=== PATIENT | female | born 1965 | race Caucasian/White ===

== ENCOUNTER 2017-06-15 11:49 | Emergency (ER) | payer SELFPAY ==
[2017-06-15] VITALS (7 sets, daily range): BP systolic 176–216; BP diastolic 98–118; PULSE 79–99; RESP 16–18; TEMP 98.1; O2SAT 97–99
[~2017-06-15] VITALS: Ht 172.7 cm; Wt 52.3 kg
[~2017-06-15 11:49] MED LIST: CYCL-36 PO; LORTA10 PO; LORTA5 PO; PERC5TAB12 PO
[2017-06-15] MEDS ORDERED: SODIUM CHLOR 0.9% 1000 ML INJ 1,000 ML IV SCH (15:48)
[2017-06-15] MEDS ORDERED: PROM25TA10 PO (15:58)
[2017-06-15] MEDS ORDERED: ZOFR4TAB PO (15:58)
[2017-06-15] MEDS ORDERED: ONDANSETRON HCL 4 MG/2 ML VIAL IVP ONE (16:00)
[2017-06-15] MEDS ORDERED: MORPHINE SULFATE 4 MG/ML INJ IV PUSH ONE ×2 (16:00→17:45)
[2017-06-15] MEDS ORDERED: FAMOTIDINE 20 MG/2 ML VIAL IV PUSH ONE (16:00)
--- NOTE | 2017-06-15 16:03 | PD ---
HPI Chief Complaint: GI Complaint Time Seen by Provider: 15:38 Travel History International Travel<30 days: No Contact w/Intl Traveler<30days: No Traveled to known affect area: No History of Present Illness HPI The patient is a 51-year-old female who presents to the emergency department for nausea, vomiting, diarrhea, and abdominal pain. The patient states her symptoms started yesterday morning with nausea and vomiting. That was followed by a few episodes of loose, watery, diarrhea. The patient then developed severe epigastric abdominal pain that is nonradiating, sharp, and assisted with persistent nausea and vomiting. The patient has a history of similar pain one year ago when she had her gallbladder removed. The patient does admit to drinking alcohol daily, approximate 5 drinks per day, but was unable to drink last night secondary to the epigastric pain. She is unsure of any history of pancreatitis. The patient denies any fever, chills, or sweats. She denies any dysuria, frequency, urgency, cough, chest pain, or shortness of breath. PFSH Past Medical History Autoimmune Disease: No Anxiety: Yes Depression: Yes Cancer: No Cardiovascular Problems: Yes (STENT IN 2007) Diminished Hearing: No Endocrine: No Genitourinary: No Hypertension: Yes Immune Disorder: No Musculoskeletal: No Neurologic: No Psychiatric: Yes Reproductive: No Respiratory: No Immunizations Current: Yes Myocardial Infarction: Yes Radiation Therapy: No Sickle Cell Disease: No ?: Not : 0 Para: 0 Past Surgical History Abdominal Surgery: No Cardiac Surgery: Yes (STENT 2007) Ear Surgery: No Endocrine Surgery: No Eye Surgery: No Genitourinary Surgery: No Gynecologic Surgery: No Oral Surgery: Yes (08/17) Thoracic Surgery: No Other Surgery: Yes (STENT) Social History Alcohol Use: Yes (4-5 DRINKS DAILY) Tobacco Use: Yes (1 PPD) Substance Use: No Allergies-Medications (Allergen,Severity, Reaction): Coded Allergies: No Known Allergies (Unverified , 06/15/17) Reported Meds & Prescriptions Reported Meds & Active Scripts Active Reported Phenergan (Promethazine HCl) 25 Mg Tablet 25 Mg PO ONCE Zofran (Ondansetron HCl) 4 Mg Tab 4 Mg PO Q6HR PRN Review of Systems Except as stated in HPI: all other systems reviewed are Neg General / Constitutional: No: Fever Cardiovascular: No: Chest Pain or Discomfort Respiratory: No: Shortness of Breath Gastrointestinal: Positive: Nausea, Vomiting, Diarrhea, Abdominal Pain Genitourinary: No: Dysuria Musculoskeletal: No: Weakness Physical Exam Narrative GENERAL: Awake, alert, pleasant 51-year-old female who appears her stated age and is in no acute respiratory distress. SKIN: Focused skin assessment warm/dry. HEAD: Atraumatic. Normocephalic. EYES: No injection or drainage. ENT: No nasal bleeding or discharge. Dry mucous members. NECK: Trachea midline. No JVD. CARDIOVASCULAR: Regular rate and rhythm. No murmur appreciated. RESPIRATORY: No accessory muscle use. Clear to auscultation. Breath sounds equal bilaterally. GASTROINTESTINAL: Abdomen soft, tender palpation epigastrium. No guarding or rigidity. MUSCULOSKELETAL: No obvious deformities. No clubbing. No cyanosis. No edema. NEUROLOGICAL: Awake and alert. No obvious cranial nerve deficits. Motor grossly within normal limits. Normal speech. PSYCHIATRIC: Appropriate mood and affect; insight and judgment normal. Data Data Last Documented VS Vital Signs Date Time Temp Pulse Resp B/P (MAP) Pulse Ox O2 Delivery O2 Flow Rate FiO2 06/15/17 16:41 16 06/15/17 16:14 99 Room Air 06/15/17 13:42 98.1 79 205/118 (147) Orders Orders Complete Blood Count With Diff (06/15/17 15:48) Comprehensive Metabolic Panel (06/15/17 15:48) Lipase (06/15/17 15:48) Lactic Acid (06/15/17 15:48) Iv Access Insert/Monitor (06/15/17 15:48) Ecg Monitoring (06/15/17 15:48) Oximetry (06/15/17 15:48) Morphine Inj (Morphine Inj) (06/15/17 16:00) Ondansetron Inj (Zofran Inj) (06/15/17 16:00) Sodium Chlor 0.9% 1000 Ml Inj (Ns 1000 M (06/15/17 15:48) Sodium Chloride 0.9% Flush (Ns Flush) (06/15/17 16:00) Famotidine Inj (Pepcid Inj) (06/15/17 16:00) Prochlorperazine Inj (Compazine Inj) (06/15/17 16:30) Sodium Chlor 0.9% 1000 Ml Inj (Ns 1000 M (06/15/17 16:30) Morphine Inj (Morphine Inj) (06/15/17 17:45) Sodium Chloride 0.9% Flush (Ns Flush) (06/15/17 18:00) Al-Mag Hy-Si 40-40-4 Mg/Ml Liq (Mag-Al P (06/15/17 18:00) Lidocaine 2% Viscous (Xylocaine 2% Visco (06/15/17 18:00) Lisinopril (Prinivil) (06/15/17 18:00) Potassium Chloride (Kcl) (06/15/17 18:00) Labs Laboratory Tests Test 06/15/17 15:55 White Blood Count 5.8 TH/MM3 Red Blood Count 4.56 MIL/MM3 Hemoglobin 16.4 GM/DL Hematocrit 50.0 % Mean Corpuscular Volume 109.6 FL Mean Corpuscular Hemoglobin 36.0 PG Mean Corpuscular Hemoglobin Concent 32.9 % Red Cell Distribution Width 14.4 % Platelet Count 204 TH/MM3 Mean Platelet Volume 8.5 FL Neutrophils (%) (Auto) 87.5 % Lymphocytes (%) (Auto) 7.7 % Monocytes (%) (Auto) 4.2 % Eosinophils (%) (Auto) 0.1 % Basophils (%) (Auto) 0.5 % Neutrophils # (Auto) 5.2 TH/MM3 Lymphocytes # (Auto) 0.4 TH/MM3 Monocytes # (Auto) 0.2 TH/MM3 Eosinophils # (Auto) 0.0 TH/MM3 Basophils # (Auto) 0.0 TH/MM3 CBC Comment DIFF FINAL Differential Comment Blood Urea Nitrogen 9 MG/DL Creatinine 0.69 MG/DL Random Glucose 124 MG/DL Total Protein 8.8 GM/DL Albumin 4.1 GM/DL Calcium Level 9.4 MG/DL Alkaline Phosphatase 242 U/L Aspartate Amino Transf (AST/SGOT) 83 U/L Alanine Aminotransferase (ALT/SGPT) 31 U/L Total Bilirubin 1.7 MG/DL Sodium Level 132 MEQ/L Potassium Level 2.9 MEQ/L Chloride Level 90 MEQ/L Carbon Dioxide Level 30.7 MEQ/L Anion Gap 11 MEQ/L Estimat Glomerular Filtration Rate 89 ML/MIN Lactic Acid Level 2.0 mmol/L Lipase 394 U/L [facility] Medical Decision Making Medical Screen Exam Complete: Yes Emergency Medical Condition: Yes Medical Record Reviewed: Yes Interpretation(s) Laboratory Tests Test 06/15/17 15:55 White Blood Count 5.8 TH/MM3 Red Blood Count 4.56 MIL/MM3 Hemoglobin 16.4 GM/DL Hematocrit 50.0 % Mean Corpuscular Volume 109.6 FL Mean Corpuscular Hemoglobin 36.0 PG Mean Corpuscular Hemoglobin Concent 32.9 % Red Cell Distribution Width 14.4 % Platelet Count 204 TH/MM3 Mean Platelet Volume 8.5 FL Neutrophils (%) (Auto) 87.5 % Lymphocytes (%) (Auto) 7.7 % Monocytes (%) (Auto) 4.2 % Eosinophils (%) (Auto) 0.1 % Basophils (%) (Auto) 0.5 % Neutrophils # (Auto) 5.2 TH/MM3 Lymphocytes # (Auto) 0.4 TH/MM3 Monocytes # (Auto) 0.2 TH/MM3 Eosinophils # (Auto) 0.0 TH/MM3 Basophils # (Auto) 0.0 TH/MM3 CBC Comment DIFF FINAL Differential Comment Blood Urea Nitrogen 9 MG/DL Creatinine 0.69 MG/DL Random Glucose 124 MG/DL Total Protein 8.8 GM/DL Albumin 4.1 GM/DL Calcium Level 9.4 MG/DL Alkaline Phosphatase 242 U/L Aspartate Amino Transf (AST/SGOT) 83 U/L Alanine Aminotransferase (ALT/SGPT) 31 U/L Total Bilirubin 1.7 MG/DL Sodium Level 132 MEQ/L Potassium Level 2.9 MEQ/L Chloride Level 90 MEQ/L Carbon Dioxide Level 30.7 MEQ/L Anion Gap 11 MEQ/L Estimat Glomerular Filtration Rate 89 ML/MIN Lactic Acid Level 2.0 mmol/L Lipase 394 U/L Differential Diagnosis Differential diagnosis includes pancreatitis, gastritis, gastroenteritis, peptic ulcer disease, retained biliary stone, food poisoning, dehydration, electrolyte abnormality. Narrative Course IV was established, labs are drawn and sent, and the patient was placed on cardiac telemetry monitoring and continuous pulse oximetry monitoring. The patient was administered morphine, Zofran, and IV fluids. The patient's hemoglobin was elevated consistent with hemoconcentration, white count is normal. Lipase is minimally elevated at 394, bili is elevated at 1.7. Most likely the patient has gastritis. She was redosed with Compazine and morphine for continuing pain. Vitals are unremarkable. The patient will be discharged home on pain medications and antiemetics. Diagnosis Primary Impression: Gastroenteritis Patient Instructions: General Instructions Additional Instructions: Medications as directed. Clear liquid diet and advance as tolerated. No alcohol. Follow-up with your primary physician. Return if symptoms worsen or progress. Med/Other Pt SpecificInfo: Prescription(s) given Scripts Hydrocodone-Acetaminophen ([place]) 5-325 mg Tab 1 TAB PO Q6H Y for PAIN, #15 TAB 0 Refills Prov: Cameron Solano MD 06/15/17 Ranitidine (Zantac) 150 Mg Tab 150 MG PO BID for Reduce Stomach Acid, #20 TAB 0 Refills Prov: Cameron Solano MD 06/15/17 Ondansetron Odt (Zofran Odt) 4 Mg Tab 4 MG SL Q6HR Y for Nausea/Vomiting, #10 TAB 0 Refills Prov: Cameron Solano MD 06/15/17 Disposition: 01 DISCHARGE HOME Condition: Stable Cameron Solano MD Jun 15, 2017 16:03
[2017-06-15] MEDS ORDERED: PROCHLORPERAZINE INJ 10 MG/2 ML VIAL IV PUSH ONE (16:30)
[2017-06-15] MEDS ORDERED: SODIUM CHLOR 0.9% 1000 ML INJ 1,000 ML IV ONE (16:30)
[2017-06-15] MEDS: SODIUM CHLORIDE 0.9% FLUSH 10 ML FLUSH IV FLUSH PRN ×2 (16:31→17:41)
[2017-06-15 16:44] LABS: AUTOMATED NEUTROPHIL # 5.2 TH/MM3 (1.8-7.7); BASOPHIL % 0.5 % (0.0-2.0); EOSINOPHIL % 0.1 % (0.0-4.0); HEMO FLAGS DIFF FINAL; LYMPH % 7.7 % (9.0-44.0); LYMPHOCYTE # 0.4 TH/MM3 (1.0-4.8); MEAN CELL VOLUME 109.6 FL (80.0-100.0); MEAN CORPUSCULAR HGB CONC 32.9 % (32.0-36.0); MONO % 4.2 % (0.0-8.0); NEUT % 87.5 % (16.0-70.0); PLATELET COUNT 204 TH/MM3 (150-450); RED BLOOD COUNT 4.56 MIL/MM3 (4.00-5.30); RED CELL DISTRIBUTION WIDTH 14.4 % (11.6-17.2); WHITE BLOOD COUNT 5.8 TH/MM3 (4.0-11.0)
[2017-06-15 17:41] LABS: ALKALINE PHOSPHATASE 242 U/L (45-117); ALT (GPT) 31 U/L (10-53); ANION GAP 11 MEQ/L (5-15); AST (GOT) 83 U/L (15-37); BICARBONATE 30.7 MEQ/L (21.0-32.0); BLOOD UREA NITROGEN 9 MG/DL (7-18); CHLORIDE 90 MEQ/L (98-107); GLOMERULAR FILTRATION RATE 89 ML/MIN (>89); SODIUM (NA) 132 MEQ/L (136-145); TOTAL BILIRUBIN ADULT 1.7 MG/DL (0.2-1.0)
[2017-06-15 17:42] LABS: POTASSIUM 2.9 MEQ/L (3.5-5.1)
[2017-06-15] MEDS ORDERED: ZOFR4TAB3 SL (17:56)
[2017-06-15] MEDS ORDERED: NORC5TAB PO (17:56)
[2017-06-15] MEDS ORDERED: ZANT150T2 PO (17:56)
[2017-06-15] MEDS ORDERED: POTASSIUM CHLORIDE 20 MEQ CONTROLLED RELEASE TAB PO ONE (18:00)
[2017-06-15] MEDS ORDERED: LISINOPRIL 20 MG TAB PO ONE (18:00)
[2017-06-15] MEDS ORDERED: ALUMINUM/MAGNESIUM/SIMETH 30 ML CUP PO ONE (18:00)
[2017-06-15] MEDS ORDERED: SODIUM CHLORIDE 0.9% FLUSH 10 ML FLUSH IV FLUSH PRN (18:00)
[2017-06-15] MEDS ORDERED: LIDOCAINE VISCOUS 2% SOLN 15 ML UDC PO ONE (18:00)
[2017-06-15] MEDS ORDERED: LABETALOL HCL 100 MG/20 ML VIAL IV ONE (19:15)
[2017-07-28] MEDS ORDERED: LISI-515 PO (04:36)
== END 2017-06-15 20:10 | disposition home or self-care (01) ==
LOC: PHED 11:49
DX: K52.9 Noninfective gastroenteritis and colitis, unspecified (principal); I10 Essential (primary) hypertension; I25.2 Old myocardial infarction
CPT/HCPCS: 80053; 83605; 83690; 85025; 96361; 96374; 96375; 96376; 99284; J0780; J2270; J2405; J7030

== ENCOUNTER 2017-07-28 04:18 | Inpatient (IN) | payer OTHER ==
[~2017-07-28] VITALS: Ht 172.7 cm; Wt 50.5 kg
[2017-07-28] VITALS (12 sets, daily range): BP systolic 141–216; BP diastolic 73–129; PULSE 76–89; RESP 16–20; TEMP 97.5–97.9; O2SAT 94–99
[~2017-07-28 04:18] MED LIST changes: -CYCL-36 PO; -LORTA10 PO; -LORTA5 PO; +NORC5TAB PO; -PERC5TAB12 PO; +PROM25TA10 PO; +ZANT150T2 PO; +ZOFR4TAB PO; +ZOFR4TAB3 SL
[2017-07-28] MEDS ORDERED: LISI-515 PO ×2 (04:36)
[2017-07-28] MEDS ORDERED: SODIUM CHLOR 0.9% 1000 ML INJ 1,000 ML IV SCH ×4 (04:37→06:37)
--- NOTE | 2017-07-28 04:39 | PD ---
HPI Chief Complaint: GI Complaint Time Seen by Provider: 04:34 Travel History International Travel<30 days: No Contact w/Intl Traveler<30days: No Traveled to known affect area: No History of Present Illness HPI 51-year-old female here for evaluation of nausea, vomiting, and abdominal pain. Symptoms have been going on for the last 4 days. Emesis is greenish, nonbloody. History of cholecystectomy. No other abdominal surgeries. Pain is epigastric, described as knifelike and radiates to her back. She denies a moderate amount of alcohol, however has not been drinking recently because of the way she has been feeling. She has had chills but no fevers. No urinary symptoms. She believes she was diagnosed with Crohn's disease, however she is not receiving any specific treatment for this. PFSH Past Medical History Autoimmune Disease: No Anxiety: Yes Depression: Yes Cancer: No Cardiovascular Problems: Yes (STENT IN 2007) Diminished Hearing: No Endocrine: No Genitourinary: No Hypertension: Yes Immune Disorder: No Musculoskeletal: No Neurologic: No Psychiatric: Yes Reproductive: No Respiratory: No Immunizations Current: Yes Myocardial Infarction: Yes Radiation Therapy: No Sickle Cell Disease: No : 0 Para: 0 Past Surgical History Abdominal Surgery: No Cardiac Surgery: Yes (STENT 2007) Ear Surgery: No Endocrine Surgery: No Eye Surgery: No Genitourinary Surgery: No Gynecologic Surgery: No Oral Surgery: Yes (08/17) Thoracic Surgery: No Other Surgery: Yes (STENT) Social History Alcohol Use: Yes (4-5 DRINKS DAILY) Tobacco Use: Yes (1 PPD) Substance Use: No Allergies-Medications (Allergen,Severity, Reaction): Coded Allergies: No Known Allergies (Unverified , 07/28/17) Reported Meds & Prescriptions Reported Meds & Active Scripts Active Zantac (Ranitidine HCl) 150 Mg Tab 150 Mg PO BID Zofran Odt (Ondansetron Odt) 4 Mg Tab 4 Mg SL Q6HR PRN Reported Lisinopril 20 Mg Tab 20 Mg PO BID Review of Systems Except as stated in HPI: all other systems reviewed are Neg Physical Exam Narrative GENERAL: Well-developed, thin, retching into an emesis bag SKIN: Focused skin assessment warm/dry. HEAD: Atraumatic. Normocephalic. EYES: Pupils equal and round. No scleral icterus. No injection or drainage. ENT: Mucous membranes pink and moist. NECK: Trachea midline. No JVD. CARDIOVASCULAR: Regular rate and rhythm. RESPIRATORY: No accessory muscle use. Clear to auscultation. Breath sounds equal bilaterally. GASTROINTESTINAL: Abdomen soft, nondistended. Moderate epigastric tenderness without peritoneal signs. Rest of abdomen is soft and nontender. Normal bowel sounds. MUSCULOSKELETAL: No obvious deformities. No clubbing. No cyanosis. No edema. NEUROLOGICAL: Awake and alert. No obvious cranial nerve deficits. Motor grossly within normal limits. Normal speech. PSYCHIATRIC: Appropriate mood and affect; insight and judgment normal. Data Data Last Documented VS Vital Signs Date Time Temp Pulse Resp B/P (MAP) Pulse Ox O2 Delivery O2 Flow Rate FiO2 07/28/17 06:01 76 18 199/108 (138) 99 Room Air 07/28/17 04:20 97.9 Orders Orders Complete Blood Count With Diff (07/28/17 04:37) Comprehensive Metabolic Panel (07/28/17 04:37) Lipase (07/28/17 04:37) Prothrombin Time / Inr (Pt) (07/28/17 04:37) Act Partial Throm Time (Ptt) (07/28/17 04:37) Urinalysis - C+S If Indicated (07/28/17 04:37) Ct Abd/Pel W Iv Contrast(Rout) (07/28/17 04:37) Iv Access Insert/Monitor (07/28/17 04:37) Ecg Monitoring (07/28/17 04:37) Oximetry (07/28/17 04:37) Morphine Inj (Morphine Inj) (07/28/17 04:45) Ondansetron Inj (Zofran Inj) (07/28/17 04:45) Sodium Chlor 0.9% 1000 Ml Inj (Ns 1000 M (07/28/17 04:37) Sodium Chloride 0.9% Flush (Ns Flush) (07/28/17 04:45) Electrocardiogram (07/28/17 04:37) Ckmb (Isoenzyme) Profile (07/28/17 04:49) Troponin I (07/28/17 04:49) Promethazine Inj (Phenergan Inj) (07/28/17 05:15) Pantoprazole Inj (Protonix Inj) (07/28/17 05:30) Al-Mag Hy-Si 40-40-4 Mg/Ml Liq (Mag-Al P (07/28/17 05:30) Lidocaine 2% Viscous (Xylocaine 2% Visco (07/28/17 05:30) Iohexol 350 Inj (Omnipaque 350 Inj) (07/28/17 05:46) Morphine Inj (Morphine Inj) (07/28/17 06:30) Labs Laboratory Tests Test 07/28/17 04:50 07/28/17 05:55 White Blood Count 9.6 TH/MM3 Red Blood Count 4.38 MIL/MM3 Hemoglobin 16.0 GM/DL Hematocrit 47.3 % Mean Corpuscular Volume 108.1 FL Mean Corpuscular Hemoglobin 36.6 PG Mean Corpuscular Hemoglobin Concent 33.9 % Red Cell Distribution Width 13.5 % Platelet Count 188 TH/MM3 Mean Platelet Volume 8.1 FL Neutrophils (%) (Auto) 90.6 % Lymphocytes (%) (Auto) 5.8 % Monocytes (%) (Auto) 2.4 % Eosinophils (%) (Auto) 0.1 % Basophils (%) (Auto) 1.1 % Neutrophils # (Auto) 8.7 TH/MM3 Lymphocytes # (Auto) 0.6 TH/MM3 Monocytes # (Auto) 0.2 TH/MM3 Eosinophils # (Auto) 0.0 TH/MM3 Basophils # (Auto) 0.1 TH/MM3 CBC Comment DIFF FINAL Differential Comment Prothrombin Time 12.2 SEC Prothromb Time International Ratio 1.1 RATIO Activated Partial Thromboplast Time 28.0 SEC Blood Urea Nitrogen 7 MG/DL Creatinine 0.44 MG/DL Random Glucose 129 MG/DL Total Protein 8.0 GM/DL Albumin 3.9 GM/DL Calcium Level 9.5 MG/DL Alkaline Phosphatase 230 U/L Aspartate Amino Transf (AST/SGOT) 58 U/L Alanine Aminotransferase (ALT/SGPT) 26 U/L Total Bilirubin 1.9 MG/DL Sodium Level 129 MEQ/L Potassium Level 3.3 MEQ/L Chloride Level 87 MEQ/L Carbon Dioxide Level 29.8 MEQ/L Anion Gap 12 MEQ/L Estimat Glomerular Filtration Rate 150 ML/MIN Total Creatine Kinase 49 U/L Troponin I LESS THAN 0.02 NG/ML Lipase 367 U/L Urine Color YELLOW Urine Turbidity CLEAR Urine pH 7.5 Urine Specific [place] 1.024 Urine Protein NEG mg/dL Urine Glucose (UA) NEG mg/dL Urine Ketones 40 mg/dL Urine Occult Blood NEG Urine Nitrite NEG Urine Bilirubin NEG Urine Leukocyte Esterase NEG Urine Squamous Epithelial Cells 0-5 /hpf Urine Bacteria OCC /hpf Urine Hyaline Casts 3-5 /lpf Urine Mucus OCC /lpf Microscopic Urinalysis Comment CULT NOT INDICATED MDM Medical Decision Making Medical Screen Exam Complete: Yes Emergency Medical Condition: Yes Medical Record Reviewed: Yes Interpretation(s) EKG: Sinus, rate 70, normal axis, LVH, Q waves in septal leads, no acute ischemic abnormality. Differential Diagnosis Gastroenteritis, gastritis, peptic ulcer disease, hepatobiliary disease, pancreatitis, metabolic abnormality/dehydration Narrative Course Initial vital signs show heart rate 76, blood pressure 205/106, pulse ox 99% on room air, oral temp of 97.9F. CBC: WBC 9.6, hemoglobin 16, hematocrit 47.3, platelets 188, neutrophils 90.6%. CMP is remarkable for sodium 129, potassium 3.3, chloride 87. Alkaline phosphatase is 2:30. Cardiac enzymes are negative. Lipase is 367. UA shows 40 ketones, not suggestive of UTI. CT abdomen pelvis: CONCLUSION: 1. Moderate to severe hepatic steatosis. 2. Cholecystectomy. 3. Nondistention versus less likely wall thickening of the colon which can be seen with colitis. No inflammatory changes. Patient was given a dose of 4 mg of IV morphine, IV Zofran, IM Phenergan, and a GI cocktail, and IV Protonix. She is still complaining of abdominal pain and continues to retch. She is unable to tolerate by mouth. She is not displaying any symptoms of alcohol withdrawal such as tremulousness or tongue fasciculations. Her blood pressure is elevated, however she has been unable to take her lisinopril because of her nausea and vomiting. She is not displaying any signs or symptoms of hypertensive crisis. Given intractable abdominal pain with possible colitis, the patient will be admitted for further treatment and evaluation. She will be started on Cipro and Flagyl. Case discussed with hospitalist Dr. Heath who will admit the patient to her service. Diagnosis Primary Impression: Colitis Additional Impressions: Intractable abdominal pain Intractable nausea and vomiting Qualified Codes: R11.2 - Nausea with vomiting, unspecified Admitting Information Admitting Physician Requests: Kt Laurent MD Jul 28, 2017 04:39
[2017-07-28] MEDS ORDERED: SODIUM CHLORIDE 0.9% FLUSH 10 ML FLUSH IV FLUSH PRN ×2 (04:45)
[2017-07-28] MEDS ORDERED: MORPHINE SULFATE 4 MG/ML INJ IV PUSH ONE ×4 (04:45→06:30)
[2017-07-28] MEDS ORDERED: ONDANSETRON HCL 4 MG/2 ML VIAL IVP ONE ×2 (04:45)
[2017-07-28 05:02] LABS: AUTOMATED NEUTROPHIL # 8.7 TH/MM3 (1.8-7.7); BASOPHIL # 0.1 TH/MM3 (0-0.2); BASOPHIL % 1.1 % (0.0-2.0); EOSINOPHIL % 0.1 % (0.0-4.0); HEMATOCRIT 47.3 % (35.0-46.0); LYMPH % 5.8 % (9.0-44.0); LYMPHOCYTE # 0.6 TH/MM3 (1.0-4.8); MEAN CELL VOLUME 108.1 FL (80.0-100.0); MEAN CORPUSCULAR HEMOGLOBIN 36.6 PG (27.0-34.0); MEAN CORPUSCULAR HGB CONC 33.9 % (32.0-36.0); MEAN PLATELET VOLUME 8.1 FL (7.0-11.0); MONO % 2.4 % (0.0-8.0); MONOCYTE # 0.2 TH/MM3 (0-0.9); NEUT % 90.6 % (16.0-70.0); PLATELET COUNT 188 TH/MM3 (150-450); RED BLOOD COUNT 4.38 MIL/MM3 (4.00-5.30); RED CELL DISTRIBUTION WIDTH 13.5 % (11.6-17.2); WHITE BLOOD COUNT 9.6 TH/MM3 (4.0-11.0)
[2017-07-28 05:14] LABS: CHLORIDE 87 MEQ/L (98-107); SODIUM (NA) 129 MEQ/L (136-145)
[2017-07-28] MEDS ORDERED: PROMETHAZINE INJ 25 MG/ML VIAL IM ONE ×2 (05:15)
[2017-07-28 05:16] LABS: INTERNATIONAL NORMALIZED RATIO 1.1 RATIO; PROTHROMBIN TIME - PATIENT 12.2 SEC (9.8-11.6)
[2017-07-28 05:18] LABS: ALBUMIN 3.9 GM/DL (3.4-5.0); BICARBONATE 29.8 MEQ/L (21.0-32.0); BLOOD UREA NITROGEN 7 MG/DL (7-18); CALCIUM 9.5 MG/DL (8.5-10.1); GLUCOSE,RANDOM 129 MG/DL (74-106); LIPASE 367 U/L (73-393)
[2017-07-28 05:21] LABS: ALT (GPT) 26 U/L (10-53); AST (GOT) 58 U/L (15-37); CREATININE 0.44 MG/DL (0.50-1.00); GLOMERULAR FILTRATION RATE 150 ML/MIN (>89)
[2017-07-28 05:23] LABS: TOTAL BILIRUBIN ADULT 1.9 MG/DL (0.2-1.0)
[2017-07-28 05:24] LABS: ALKALINE PHOSPHATASE 230 U/L (45-117)
[2017-07-28 05:26] LABS: TROPONIN I LESS THAN 0.02 NG/ML (0.02-0.05)
[2017-07-28] MEDS ORDERED: ALUMINUM/MAGNESIUM/SIMETH 30 ML CUP PO ONE ×2 (05:30)
[2017-07-28] MEDS ORDERED: LIDOCAINE VISCOUS 2% SOLN 15 ML UDC PO ONE ×2 (05:30)
[2017-07-28] MEDS ORDERED: PANTOPRAZOLE SODIUM 40 MG VIAL IVP ONE ×2 (05:30)
[2017-07-28] MEDS ORDERED: IOHEXOL 350 MG/ML 10 ML VIAL (for RAD DIAG) IVCONTRAST ONE ×2 (05:46)
[2017-07-28 06:17] LABS: BILIRUBIN, URINE NEG (NEG); BLOOD, URINE NEG (NEG); GLUCOSE,URINE NEG (NEG); KETONE, URINE 40 mg/dL (NEG); NITRITE,URINE NEG (NEG); PH, URINE 7.5 (5.0-8.5); URINE LEUKOCYTE ESTERASE NEG (NEG)
--- NOTE | 2017-07-28 06:21 | RADRPT ---
EXAM DATE/TIME: 07/28/2017 05:31 [facility] COMPARISON: No previous studies available for comparison. INDICATIONS : Epigastric pain. Nausea. Vomiting. IV CONTRAST: 100 cc Omnipaque 350 (iohexol) IV ORAL CONTRAST: No oral contrast ingested. RADIATION DOSE: 4.73 CTDIvol (mGy) MEDICAL HISTORY : Crohn's disease. SURGICAL HISTORY : Cholecystectomy. ENCOUNTER: Initial ACUITY: 4 - 6 days PAIN SCALE: 6/10 LOCATION: Bilateral upper quadrant TECHNIQUE: Volumetric scanning of the abdomen and pelvis was performed. Using automated exposure control and ad justment of the mA and/or kV according to patient size, radiation dose was kept as low as reasonably achievable to obtain optimal diagnostic quality images. DICOM format image data is available electro nically for review and comparison. FINDINGS: LOWER LUNGS: The visualized lower lungs are clear. LIVER: Decreased attenuation without lesion. There is no dilation of the biliary tree. Cholecystectomy. SPLEEN: Normal size without lesion. PANCREAS: Within normal limits. KIDNEYS: Normal in size and shape. There is no mass, stone or hydronephrosis. ADRENAL GLANDS: Within normal limits. VASCULAR: There is no aortic aneurysm. BOWEL/MESENTERY: There is no distention versus wall thickening of the colon.. There is no free intraperitoneal air or fluid. ABDOMINAL WALL: Within normal limits. RETROPERITONEUM: There is no lymphadenopathy. BLADDER: No wall thickening or mass. REPRODUCTIVE: Within normal limits. INGUINAL: There is no lymphadenopathy or hernia. MUSCULOSKELETAL: Within normal limits for patient age. CONCLUSION: 1. Moderate to severe hepatic steatosis. 2. Cholecystectomy. 3. Nondistention versus less likely wall thickening of the colon which can be seen with colitis. No i nflammatory changes. Gilberto Pressley MD on July 28, 2017 at 6:16 Board Certified Radiologist. This report was verified electronically.
[2017-07-28 06:31] LABS: MUCUS URINE OCC /lpf (OCC); SQUAMOUS EPITHELIAL CELL URINE 0-5 /hpf (0-5); URINE COLOR YELLOW (YELLW/STRAW)
[2017-07-28 06:33] LABS: BACTERIA, URINE OCC /hpf
[2017-07-28] MEDS ORDERED: CIPROFLOXACIN 400 MG PREMIX 200 ML IV ONE ×2 (06:45)
[2017-07-28] MEDS ORDERED: metroNIDAZOLE 500 MG INJ 100 ML IV ONE ×2 (06:45)
[2017-07-28] MEDS ORDERED: NALOXONE HCL 0.4 MG/ML AMP IV PUSH PRN ×2 (06:45)
[2017-07-28] MEDS ORDERED: FLUMAZENIL 0.5 MG/5 ML VIAL IV PUSH PRN ×2 (06:45)
[2017-07-28] MEDS ORDERED: LORazepam 2 MG/ML VIAL IV PUSH PRN ×4 (06:45)
[2017-07-28] MEDS ORDERED: LORazepam 2 MG TAB PO PRN ×2 (06:45)
[2017-07-28] MEDS: SODIUM CHLOR 0.9% 1000 ML INJ 1,000 ML IV SCH ×4 (07:39→12:41)
[2017-07-28] MEDS: SODIUM CHLORIDE 0.9% FLUSH 10 ML FLUSH IV FLUSH SCH ×4 (08:00→21:00)
[2017-07-28] MEDS ORDERED: ONDANSETRON HCL 4 MG/2 ML VIAL IV PUSH ONE ×2 (08:30)
[2017-07-28] MEDS ORDERED: HYDROmorphone HCL PF 1 MG/ML VIAL IV ONE ×2 (08:30)
[2017-07-28] MEDS: PANTOPRAZOLE SODIUM 40 MG VIAL IV PUSH SCH ×4 (09:29→21:14)
[2017-07-28] MEDS ORDERED: MORPHINE SULFATE 2 MG/ML INJ IV PUSH PRN ×2 (10:15)
[2017-07-28] MEDS: PROMETHAZINE INJ 25 MG/ML VIAL IM PRN ×4 (10:23→19:16)
[2017-07-28] MEDS: ENALAPRILAT 1.25 MG/ML VIAL IV PUSH PRN ×2 (10:23)
--- NOTE | 2017-07-28 11:52 | HHI.HP ---
[facility] Service [facility] Primary Care Physician No Primary Care Physician Admission Diagnosis colitis, intractable abdominal pain, intractable nausea and vomiting Diagnoses: (1) HTN (hypertension) (2) Alcohol abuse (3) Tobacco abuse (4) Melena (5) Colitis (6) Intractable abdominal pain (7) Intractable nausea and vomiting Travel History International Travel<30 Days: No Contact w/Intl Traveler <30 Da: No Traveled to Known Affected Are: No History of Present Illness This is a pleasant 51-year-old female with past medical history of hypertension and previous colitis who 4 days ago started to develop epigastric pain associated with diarrhea and tarry black stools and intractable nausea and vomiting. The patient states she has cut back from drinking and typically drinks 2-3 glasses of wine 4 times a week. She does not take NSAIDs. The pain is constant and is severe. No provocative or alleviating factors. The patient has been unable to keep anything by mouth down. The patient does not have insurance and has been off all medications. The patient states that years ago she underwent a colonoscopy which showed colitis. She also had an EGD which was abnormal but she cannot recall what the diagnosis was for that. The patient has been vomiting and states that she has small flecks of red blood in the vomitus. The patient has been having hot and cold chills She has had a cholecystectomy in the past. Review of Systems Constitutional: DENIES: Fever, Chills Ears, nose, mouth, throat: COMPLAINS OF: Throat pain Respiratory: COMPLAINS OF: Cough, Sputum production, Shortness of breath Cardiovascular: DENIES: Chest pain, Palpitations Gastrointestinal: COMPLAINS OF: Abdominal pain, Black stools, Diarrhea, Nausea , Vomiting, DENIES: Difficulty Swallowing Genitourinary: DENIES: Urinary frequency, Dysuria Integumentary: DENIES: Pruritus, Rash Hematologic/lymphatic: DENIES: Lymphadenopathy Neurologic: DENIES: Abnormal gait, Headache Psychiatric: DENIES: Anxiety, Confusion Past Family Social History Past Medical History Hypertension Alcohol and tobacco abuse Reported Medications Allergies Coded Allergies Type Severity Reaction Last Updated Verified No Known Allergies 07/28/17 No Active Scripts Medications Dose Route/Sig Max Daily Dose Days Date Category Lisinopril 20 Mg Tab 20 Mg PO BID 07/28/17 Reported Zantac (Ranitidine HCl) 150 Mg Tab 150 Mg PO BID 06/15/17 Rx Zofran Odt (Ondansetron Odt) 4 Mg Tab 4 Mg SL Q6HR PRN 06/15/17 Rx Allergies: Coded Allergies: No Known Allergies (Unverified , 07/28/17) Family History Negative for colitis Social History She smokes half a pack of cigarettes per day Physical Exam Vital Signs Vital Signs Date Time Temp Pulse Resp B/P (MAP) Pulse Ox O2 Delivery O2 Flow Rate FiO2 07/28/17 11:16 07/28/17 10:58 89 18 173/99 (123) 98 07/28/17 10:21 80 16 178/114 (135) 99 Room Air 07/28/17 08:45 83 204/109 (140) 07/28/17 07:15 77 18 198/129 (152) 99 Room Air 07/28/17 06:01 76 18 199/108 (138) 99 Room Air 07/28/17 04:57 78 18 212/115 (147) 97 Room Air 07/28/17 04:56 18 97 Room Air 07/28/17 04:20 97.9 76 16 205/106 (139) 99 Physical Exam GENERAL: Well-nourished, well-developed pleasant lean middle-aged female patient. SKIN: Warm and dry. HEAD: Normocephalic. Oropharynx: She has some white exudate on the tongue, mucous membranes are moist. Oropharynx patent. EYES: No scleral icterus. No injection or drainage. NECK: Supple, trachea midline. No JVD or lymphadenopathy. CARDIOVASCULAR: Regular rate and rhythm without murmurs, gallops, or rubs. RESPIRATORY: Breath sounds equal bilaterally. No accessory muscle use. GASTROINTESTINAL: Bowel sounds are hyperactive Abdomen soft, mildly tender in the epigastrium without guarding, nondistended. EXTREMITIES: No cyanosis, or edema. NEUROLOGICAL: Awake, alert, and oriented x 3. Non-focal. Laboratory Laboratory Tests Test 07/28/17 04:50 07/28/17 05:55 White Blood Count 9.6 Red Blood Count 4.38 Hemoglobin 16.0 Hematocrit 47.3 Mean Corpuscular Volume 108.1 Mean Corpuscular Hemoglobin 36.6 Mean Corpuscular Hemoglobin Concent 33.9 Red Cell Distribution Width 13.5 Platelet Count 188 Mean Platelet Volume 8.1 Neutrophils (%) (Auto) 90.6 Lymphocytes (%) (Auto) 5.8 Monocytes (%) (Auto) 2.4 Eosinophils (%) (Auto) 0.1 Basophils (%) (Auto) 1.1 Neutrophils # (Auto) 8.7 Lymphocytes # (Auto) 0.6 Monocytes # (Auto) 0.2 Eosinophils # (Auto) 0.0 Basophils # (Auto) 0.1 CBC Comment DIFF FINAL Differential Comment Prothrombin Time 12.2 Prothromb Time International Ratio 1.1 Activated Partial Thromboplast Time 28.0 Blood Urea Nitrogen 7 Creatinine 0.44 Random Glucose 129 Total Protein 8.0 Albumin 3.9 Calcium Level 9.5 Alkaline Phosphatase 230 Aspartate Amino Transf (AST/SGOT) 58 Alanine Aminotransferase (ALT/SGPT) 26 Total Bilirubin 1.9 Sodium Level 129 Potassium Level 3.3 Chloride Level 87 Carbon Dioxide Level 29.8 Anion Gap 12 Estimat Glomerular Filtration Rate 150 Total Creatine Kinase 49 Troponin I LESS THAN 0.02 Lipase 367 Urine Color YELLOW Urine Turbidity CLEAR Urine pH 7.5 Urine Specific Kennedy 1.024 Urine Protein NEG Urine Glucose (UA) NEG Urine Ketones 40 Urine Occult Blood NEG Urine Nitrite NEG Urine Bilirubin NEG Urine Leukocyte Esterase NEG Urine Squamous Epithelial Cells 0-5 Urine Bacteria OCC Urine Hyaline Casts 3-5 Urine Mucus OCC Microscopic Urinalysis Comment CULT NOT INDICATED Result Diagram: 07/28/1744907/28/17449 Imaging Last Impressions Abdomen/Pelvis CT 07/28/17 0437 Signed Impressions: Service Date/Time: Friday, July 28, 2017 05:31 - CONCLUSION: 1. Moderate to severe hepatic steatosis. 2. Cholecystectomy. 3. Nondistention versus less likely wall thickening of the colon which can be seen with colitis. No inflammatory changes. Gilberto Pressley MD Caprini VTE Risk Assessment Caprini VTE Risk Assessment: No/Low Risk (score <= 1) Caprini Risk Assessment Model Point Value = 1 Point Value = 2 Point Value = 3 Point Value = 5 Age 41-60 Minor surgery BMI > 25 kg/m2 Swollen legs Varicose veins or History of unexplained or recurrent spontaneous Oral contraceptives or hormone replacement Sepsis (< 1 month) Serious lung disease, including pneumonia (< 1 month) Abnormal pulmonary function Acute myocardial infarction Congestive heart failure (< 1 month) History of inflammatory bowel disease Medical patient at bed rest Age 61-74 Arthroscopic surgery Major open surgery (> 45 min) Laparoscopic surgery (> 45 min) Malignancy Confined to bed (> 72 hours) Immobilizing plaster cast Central venous access Age >= 75 History of VTE Family history of VTE Factor V Leiden Prothrombin [id number] Lupus anticoagulant Anticardiolipin antibodies Elevated serum homocysteine Heparin-induced thrombocytopenia Other congenital or acquired thrombophilia Stroke (< 1 month) Elective arthroplasty Hip, pelvis, or leg fracture Acute spinal cord injury (< 1 month) Prophylaxis Regimen Total Risk Factor Score Risk Level Prophylaxis Regimen 0-1 Low Early ambulation 2 Moderate Order ONE of the following: *Sequential Compression Device (SCD) *Heparin 5000 units SQ BID 3-4 Higher Order ONE of the following medications: *Heparin 5000 units SQ TID *Enoxaparin/Lovenox 40 mg SQ daily (WT < 150 kg, CrCl > 30 mL/min) *Enoxaparin/Lovenox 30 mg SQ daily (WT < 150 kg, CrCl > 10-29 mL/min) *Enoxaparin/Lovenox 30 mg SQ BID (WT < 150 kg, CrCl > 30 mL/min) AND/OR *Sequential Compression Device (SCD) 5 or more Highest Order ONE of the following medications: *Heparin 5000 units SQ TID (Preferred with Epidurals) *Enoxaparin/Lovenox 40 mg SQ daily (WT < 150 kg, CrCl > 30 mL/min) *Enoxaparin/Lovenox 30 mg SQ daily (WT < 150 kg, CrCl > 10-29 mL/min) *Enoxaparin/Lovenox 30 mg SQ BID (WT < 150 kg, CrCl > 30 mL/min) AND *Sequential Compression Device (SCD) Assessment and Plan Problem List: (1) Hyponatremia ICD Code: E87.1 - Hypo-osmolality and hyponatremia (2) HTN (hypertension) ICD Code: I10 - Essential (primary) hypertension (3) Tobacco abuse ICD Code: Z72.0 - Tobacco use (4) Melena ICD Code: K92.1 - Melena (5) Intractable nausea and vomiting ICD Code: R11.2 - Nausea with vomiting, unspecified Status: Acute (6) Intractable abdominal pain ICD Code: R10.9 - Unspecified abdominal pain Status: Acute (7) Colitis ICD Code: K52.9 - Noninfective gastroenteritis and colitis, unspecified Status: Acute (8) Anemia ICD Code: D64.9 - Anemia, unspecified Assessment and Plan -Epigastric pain with associated intractable nausea and vomiting, diarrhea with possible melena - she is mildly anemic. We'll continue IV fluids, Protonix IV added. Will follow CBC. Patient has CT scan indicative of possible colitis. We'll consult gastroenterology. She may need EGD and colonoscopy. Alcohol cessation was recommended to the patient. -Hypovolemic hyponatremia. Continue IV fluids. -Hypertension. We'll resume lisinopril when she is able to take by mouth. -Tobacco abuse. Patient counseled on cessation. -DVT prophylaxis with SCDs. Problem Qualifiers (1) Intractable nausea and vomiting: Qualified Codes: R11.2 - Nausea with vomiting, unspecified Dayanna Huerta MD Jul 28, 2017 11:52
[2017-07-28] MEDS ORDERED: POTASSIUM CHLOR 20 MEQ PREMIX 100 ML IV ONE ×2 (12:15)
[2017-07-28] MEDS: HYDROmorphone HCL PF 0.5 MG/0.5 ML SYRINGE IV PUSH PRN ×6 (12:39→21:10)
[2017-07-28] MEDS: metroNIDAZOLE 500 MG INJ 100 ML IV SCH ×4 (15:17→21:14)
[2017-07-28] MEDS: ONDANSETRON HCL 4 MG/2 ML VIAL IV PUSH PRN ×2 (15:17)
[2017-07-28] MEDS: hydrALAZINE HCL 20 MG/ML VIAL IV PUSH PRN ×2 (20:17)
[2017-07-28] MEDS: CIPROFLOXACIN 400 MG PREMIX 200 ML IV SCH ×2 (21:14)
[2017-07-28] MEDS: LORazepam 1 MG TAB PO PRN ×2 (22:35)
[2017-07-29] VITALS (13 sets, daily range): BP systolic 119–201; BP diastolic 71–115; PULSE 94–120; RESP 16–26; TEMP 95.4–97.8; O2SAT 96–100
[2017-07-29] MEDS: HYDROmorphone HCL PF 0.5 MG/0.5 ML SYRINGE IV PUSH PRN ×2 (01:25)
[2017-07-29] MEDS: SODIUM CHLOR 0.9% 1000 ML INJ 1,000 ML IV SCH ×2 (02:40)
[2017-07-29] MEDS: metroNIDAZOLE 500 MG INJ 100 ML IV SCH ×4 (02:40→08:06)
[2017-07-29] MEDS: LORazepam 1 MG TAB PO PRN ×2 (04:29)
[2017-07-29] MEDS: hydrALAZINE HCL 20 MG/ML VIAL IV PUSH PRN ×4 (04:30→20:48)
[2017-07-29] MEDS: LORazepam 2 MG/ML VIAL IV PUSH PRN ×14 (06:31→20:31)
[2017-07-29 06:41] LABS: AUTOMATED NEUTROPHIL # 10.6 TH/MM3 (1.8-7.7); BASOPHIL % 0.2 % (0.0-2.0); HEMATOCRIT 46.2 % (35.0-46.0); HEMOGLOBIN 15.7 GM/DL (11.6-15.3); LYMPH % 6.9 % (9.0-44.0); LYMPHOCYTE # 0.9 TH/MM3 (1.0-4.8); MEAN CELL VOLUME 107.5 FL (80.0-100.0); MEAN CORPUSCULAR HEMOGLOBIN 36.5 PG (27.0-34.0); MEAN PLATELET VOLUME 8.7 FL (7.0-11.0); MONO % 6.6 % (0.0-8.0); MONOCYTE # 0.8 TH/MM3 (0-0.9); NEUT % 86.3 % (16.0-70.0); PLATELET COUNT 210 TH/MM3 (150-450); RED BLOOD COUNT 4.29 MIL/MM3 (4.00-5.30); RED CELL DISTRIBUTION WIDTH 13.1 % (11.6-17.2); WHITE BLOOD COUNT 12.3 TH/MM3 (4.0-11.0)
[2017-07-29 07:09] LABS: CALCIUM 8.9 MG/DL (8.5-10.1); CREATININE 0.43 MG/DL (0.50-1.00)
[2017-07-29] MEDS: POTASSIUM CHLORIDE 10 MEQ CONTROLLED RELEASE TAB PO ONE ×4 (07:45→08:07)
[2017-07-29] MEDS: CIPROFLOXACIN 400 MG PREMIX 200 ML IV SCH ×2 (08:04)
[2017-07-29] MEDS: NS + KCL 20 MEQ INJ 1,000 ML IV SCH ×4 (08:04→17:59)
[2017-07-29] MEDS: POTASSIUM CHLOR 20 MEQ PREMIX 100 ML IV SCH ×8 (08:05→14:21)
[2017-07-29] MEDS: PANTOPRAZOLE SODIUM 40 MG VIAL IV PUSH SCH ×4 (08:06→20:32)
[2017-07-29] MEDS: SODIUM CHLORIDE 0.9% FLUSH 10 ML FLUSH IV FLUSH SCH ×4 (08:07→20:32)
--- NOTE | 2017-07-29 08:08 | EKG ---
Date Performed: 07/28/2017 Time Performed: 04:47:09 PTAGE: 51 years EKG: Sinus rhythm POSSIBLE LEFT ATRIAL ENLARGEMENT POSSIBLE LEFT VENTRICULAR HYPERTROPHY POSSIBLE ANTEROSEPTAL MYOCARD IAL INFARCTION, AGE UNDETERMINED PROLONGED CORRECTED QT INTERVAL ABNORMAL ECG NO PREVIOUS TRACING DOCTOR: Obed Pepper Interpretating Date/Time 07/29/2017 08:07:19
--- NOTE | 2017-07-29 09:02 | MB ---
cc: SUSANNA REMY M.D., MICHELLE S. MD DATE OF CONSULTATION: 07/29/2017 DATE OF : [address] Huerta[address] REASON FOR CONSULTATION Nausea and vomiting. Thank you for the consultation. HISTORY OF PRESENT ILLNESS This is a 51-year-old lady who apparently uses a significant amount of alcohol and has multiple medical problems, came with significant abdominal pain, nausea and vomiting. The patient is currently in DTs, unable to give a history, lying in bed complaining of abdominal discomfort. Apparently from the chart she came complaining of epigastric pain for about 4 days with black stool, intractable nausea and vomiting. She drinks 2-3 glasses of wine according to the chart. She does not take NSAIDs. No other information can be obtained from the patient. Apparently she had an upper endoscopy and colonoscopy a few years ago. REVIEW OF SYSTEMS Unobtainable because the patient is in DTs. FAMILY HISTORY Significant for hypertension, alcohol use, questionable history of colitis. ALLERGIES No known drug allergies. MEDICATIONS Reviewed in the chart. FAMILY HISTORY Negative. SOCIAL HISTORY Positive for tobacco and alcohol. PHYSICAL EXAMINATION GENERAL: Patient is awake, confused, lying in bed, seems to be calm. SKIN: Warm and dry. HEENT: Pupils are round and reactive to light. NECK: Supple. No JVD. CHEST: Clear to auscultation and precaution. CARDIAC: Regular rate and rhythm at this time. No murmur or gallop. ABDOMEN: Soft. Tenderness in the midepigastric area. Possible hepatomegaly. No masses. Positive bowel sounds. EXTREMITIES: No edema, clubbing or cyanosis. NEUROLOGIC: Alert, awake, not oriented. PSYCH: Unable to evaluate. LABORATORY White count 12.3 up from 9.6, hemoglobin 15.7, platelet count 210. INR 1.1. Total bilirubin 1.9, AST 58, ALT 26, alk phos 230, lipase 367. IMAGING CT scan showed fatty liver, cholecystectomy, questionable thickening of the colon versus distention, possible colitis. ASSESSMENT AND PLAN A 51-year-old lady with alcohol abuse, abdominal pain, most likely alcoholic hepatitis, possible pancreatitis. Lab is normal. The patient is currently in DTs. We will watch for that. Also, she could have peptic ulcer disease or esophagitis. She will need an upper endoscopy at some point when the DTs are under control. Meanwhile continue supportive care. If diarrhea continues, she will need a colonoscopy. MD JUANITA Sanchez/ROCHELLE /8:29 AM /8:45 AM
[2017-07-29] MEDS: ENALAPRILAT 1.25 MG/ML VIAL IV PUSH PRN ×4 (12:42→18:49)
--- NOTE | 2017-07-29 13:36 | HHI.PR ---
Subjective Remarks Nursing reports that the patient seems quite sleepy, is asking for pain medications while she is very sleepy. At times she is too sleepy to take oral medications. Otherwise no deterioration since last night. getting some Ativan for her detoxification. Patient herself is saying nonsensical things when asked questions. Objective Vital Signs Date Time Temp Pulse Resp B/P (MAP) Pulse Ox O2 Delivery O2 Flow Rate FiO2 07/29/17 12:00 96.3 99 24 164/99 (120) 99 07/29/17 08:00 95.4 118 20 120/76 (91) 97 07/29/17 04:00 97.5 95 18 179/102 (127) 100 07/29/17 00:00 97.2 104 16 143/90 (107) 98 07/28/17 20:00 97.5 84 20 216/120 (152) 98 07/28/17 17:08 18 07/28/17 16:00 97.8 78 17 141/73 (95) 94 I/O 07/28/17 07/28/17 07/28/17 07/29/17 07/29/17 07/29/17 07:00 15:00 23:00 07:00 15:00 23:00 Intake Total 1000 ml 400 ml 100 ml 902 ml 272 ml Balance 1000 ml 400 ml 100 ml 902 ml 272 ml Intake Oral 0 ml 0 ml IV Total 1000 ml 400 ml 100 ml 902 ml 272 ml # Voids 3 2 # Bowel Movements 0 0 Result Diagram: 07/29/1751907/29/17519 Objective Remarks Appears to be in delirium tremens Abdomen is soft, with very mild tenderness to palpation diffusely, nondistended otherwise, no jaundice A/P Assessment and Plan Epigastric pain with associated intractable nausea and vomiting, diarrhea with possible melena - improved since admission - likely multifactorial from severe hepatic steatosis and possible colitis on CT but no diverticulitis- therefore Stopping abx since there is not infection at this time. -We'll give only oral morphine if and when she is awake enough to tolerate by mouth medicines since she is going through delirium tremens at this time - continue IV fluids, Protonix IV . - CBC stable, repeat in AM GI recommending scoping when more stable. hepatic steatosis - likely 2/2 ETOH usage, avoid acetaminophen containing products for now DTs - continue CIWA protocol, starting scheduled Librium - consider thiamine infusion Hyponatremia chronic - likely 2/2 ETOH - IVFs until pt comes out of DTs and tolerates po intake Hypertension. resume lisinopril when she is able to take by mouth. Tobacco abuse. Patient counseled on cessation. -DVT prophylaxis with SCDs. Aroldo Demarco MD Jul 29, 2017 13:36
[2017-07-29 15:24] LABS: ALBUMIN 3.8 GM/DL (3.4-5.0)
[2017-07-29 15:27] LABS: DIRECT BILIRUBIN ADULT 0.6 MG/DL (0.0-0.2)
[2017-07-29 15:29] LABS: TOTAL BILIRUBIN ADULT 1.6 MG/DL (0.2-1.0); TOTAL PROTEIN 7.7 GM/DL (6.4-8.2)
[2017-07-29 17:48] LABS: MAGNESIUM 1.7 MG/DL (1.5-2.5)
[2017-07-30] VITALS (13 sets, daily range): BP systolic 126–193; BP diastolic 83–113; PULSE 90–122; RESP 18–30; TEMP 96.7–98.1; O2SAT 95–99
[2017-07-30] MEDS: LORazepam 2 MG/ML VIAL IV PUSH PRN ×10 (00:44→15:27)
[2017-07-30] MEDS: ENALAPRILAT 1.25 MG/ML VIAL IV PUSH PRN ×4 (02:35→15:27)
[2017-07-30] MEDS: NS + KCL 20 MEQ INJ 1,000 ML IV SCH ×6 (04:38→22:57)
[2017-07-30] MEDS: hydrALAZINE HCL 20 MG/ML VIAL IV PUSH PRN ×2 (06:33)
[2017-07-30 08:09] LABS: AUTOMATED NEUTROPHIL # 12.3 TH/MM3 (1.8-7.7); BASOPHIL # 0.1 TH/MM3 (0-0.2); BASOPHIL % 0.4 % (0.0-2.0); EOSINOPHIL % 0.1 % (0.0-4.0); HEMATOCRIT 44.3 % (35.0-46.0); HEMOGLOBIN 14.6 GM/DL (11.6-15.3); LYMPH % 5.2 % (9.0-44.0); LYMPHOCYTE # 0.7 TH/MM3 (1.0-4.8); MEAN CORPUSCULAR HEMOGLOBIN 35.6 PG (27.0-34.0); MEAN PLATELET VOLUME 8.8 FL (7.0-11.0); MONO % 6.4 % (0.0-8.0); MONOCYTE # 0.9 TH/MM3 (0-0.9); NEUT % 87.9 % (16.0-70.0); PLATELET COUNT 188 TH/MM3 (150-450); RED CELL DISTRIBUTION WIDTH 13.1 % (11.6-17.2)
[2017-07-30 08:36] LABS: BICARBONATE 21.2 MEQ/L (21.0-32.0); CALCIUM 8.6 MG/DL (8.5-10.1); CREATININE 0.33 MG/DL (0.50-1.00); MAGNESIUM 1.6 MG/DL (1.5-2.5)
[2017-07-30] MEDS: SODIUM CHLORIDE 0.9% FLUSH 10 ML FLUSH IV FLUSH SCH ×4 (09:00→20:53)
[2017-07-30] MEDS: PANTOPRAZOLE SODIUM 40 MG VIAL IV PUSH SCH ×4 (10:27→20:53)
[2017-07-30] MEDS ORDERED: MORPHINE SULFATE 2 MG/ML INJ IM PRN ×2 (10:30)
[2017-07-30] MEDS: LISINOPRIL 20 MG TAB PO SCH ×4 (11:15→20:53)
--- NOTE | 2017-07-30 13:37 | HHI.PR ---
Subjective Remarks Nursing reports that the patient has not needed as much Ativan in the last 12 hours but is still too sleepy to take some by mouth medications . At times patient will ask for pain medication . No adequate food intake in last 24 hrs. Objective Vital Signs Date Time Temp Pulse Resp B/P (MAP) Pulse Ox O2 Delivery O2 Flow Rate FiO2 07/30/17 10:05 94 Nasal Cannula 1.00 07/30/17 08:00 96.7 122 22 126/83 (97) 95 07/30/17 04:36 96.8 107 28 170/113 (132) 96 07/30/17 02:33 97.6 111 26 164/103 (123) 96 07/29/17 23:59 97.6 120 26 96 07/29/17 22:48 119/71 (87) 07/29/17 20:37 97.8 96 22 201/115 (143) 98 07/29/17 20:00 100 07/29/17 19:59 97.8 96 22 177/103 (127) 98 07/29/17 18:45 97 177/93 (121) 07/29/17 16:00 97.7 94 18 173/97 (122) 96 07/29/17 15:05 102 I/O 07/29/17 07/29/17 07/29/17 07/30/17 07/30/17 07/30/17 07:00 15:00 23:00 07:00 15:00 23:00 Intake Total 902 ml 872 ml 1061 ml 1208 ml Balance 902 ml 872 ml 1061 ml 1208 ml Intake Oral 0 ml 0 ml 0 ml IV Total 902 ml 872 ml 1061 ml 1208 ml Bladder Scan Volume Amount 326 ml # Voids 2 2 3 # Bowel Movements 0 Result Diagram: 07/30/17 0730 07/30/17 0730 Objective Remarks Appears to be in delirium tremens, drowsy, when spoken to mumbles nonsensical things Abdomen is soft, with very mild tenderness to palpation diffusely, nondistended otherwise, no jaundice A/P Assessment and Plan Epigastric pain - improved since admission - likely multifactorial from severe hepatic steatosis and possible colitis on CT but no diverticulitis- therefore Stopping abx since there is not infection at this time. -We'll give only oral morphine if and when she is awake enough to tolerate by mouth medicines since she is going through delirium tremens at this time - continue IV fluids, Protonix IV . - CBC stable, repeat in AM GI recommending scoping when more stable. hepatic steatosis - likely 2/2 ETOH usage, avoid acetaminophen containing products for now DTs - continue CIWA protocol, continue scheduled Librium, will stop if LFTs are getting worse today (lab pending) - starting thiamine injection daily, consulting psychiatry w/ help w/ detox Hyponatremia chronic - likely 2/2 ETOH - IVFs until pt comes out of DTs and tolerates po intake Hypertension. resume lisinopril when she is able to take by mouth. Tobacco abuse. Patient counseled on cessation. -DVT prophylaxis with SCDs. Aroldo Demarco MD Jul 30, 2017 13:37
[2017-07-30 13:55] LABS: ALBUMIN 3.4 GM/DL (3.4-5.0)
[2017-07-30 13:57] LABS: DIRECT BILIRUBIN ADULT 0.6 MG/DL (0.0-0.2)
[2017-07-30 14:00] LABS: TOTAL BILIRUBIN ADULT 1.6 MG/DL (0.2-1.0); TOTAL PROTEIN 6.7 GM/DL (6.4-8.2)
[2017-07-30] MEDS: HEPARIN SODIUM - SQ 10,000 UNITS/ML VIAL SQ SCH ×4 (14:13→20:53)
[2017-07-30] MEDS: ONDANSETRON HCL 4 MG/2 ML VIAL IV PUSH PRN ×2 (14:13)
[2017-07-30] MEDS: MORPHINE SULFATE 2 MG/ML INJ IV PUSH PRN ×4 (14:16→14:19)
[2017-07-30] MEDS: THIAMINE INJ 100 MG in SODIUM CHLORIDE 0.9% INJ 100 ML IV SCH ×4 (15:12)
[2017-07-30 15:23] LABS: CALCIUM 8.4 MG/DL (8.5-10.1)
[2017-07-30 15:24] LABS: BICARBONATE 21.6 MEQ/L (21.0-32.0)
[2017-07-30 15:27] LABS: CREATININE 0.38 MG/DL (0.50-1.00)
--- NOTE | 2017-07-30 17:31 | HHI.GIFU ---
GI Follow-up Note Consult Follow-up Subjective: Patient laying in bed comfortably, lethargic.Complaining of abdominal pain, states she has a history of colitis, possible ulcerative colitis -not sure, not able to give appropriate history.States she had egd/colon long time ago in [place] Objective: PHYSICAL EXAMINATION: Vitals signs stable No fever Vital Signs Date Time Temp Pulse Resp B/P (MAP) Pulse Ox O2 Delivery O2 Flow Rate FiO2 07/30/17 16:55 183/112 (135) 07/30/17 15:27 168/106 (126) 07/30/17 12:00 97.4 99 30 157/92 (113) 99 07/30/17 10:05 94 Nasal Cannula 1.00 HEENT: Pupils round and reactive to light; normocephalic; atraumatic; no jaundice. Throat is clear. NECK: Neck is supple, no JVD, no lymphadenopathy. CHEST: Chest is clear to auscultation and percussion. CARDIAC: Regular rate and rhythm with no murmur gallop or rubs. ABDOMEN: Soft, nondistended, epigastric tenderness ; no hepatosplenomegaly; bowel sounds are present in all four quadrants. EXTREMITIES: No clubbing, cyanosis, or edema. SKIN: Normal; no rash; no jaundice. [employer]: No focal deficits; lethargic Available Data (labs, X- Rays, Procedues) : Laboratory Tests Test 07/29/17 05:20 07/29/17 16:50 07/30/17 07:30 07/30/17 15:00 White Blood Count 12.3 TH/MM3 14.0 TH/MM3 Red Blood Count 4.29 MIL/MM3 4.10 MIL/MM3 Hemoglobin 15.7 GM/DL 14.6 GM/DL Hematocrit 46.2 % 44.3 % Mean Corpuscular Volume 107.5 FL 108.0 FL Mean Corpuscular Hemoglobin 36.5 PG 35.6 PG Mean Corpuscular Hemoglobin Concent 34.0 % 33.0 % Red Cell Distribution Width 13.1 % 13.1 % Platelet Count 210 TH/MM3 188 TH/MM3 Mean Platelet Volume 8.7 FL 8.8 FL Neutrophils (%) (Auto) 86.3 % 87.9 % Lymphocytes (%) (Auto) 6.9 % 5.2 % Monocytes (%) (Auto) 6.6 % 6.4 % Eosinophils (%) (Auto) 0.0 % 0.1 % Basophils (%) (Auto) 0.2 % 0.4 % Neutrophils # (Auto) 10.6 TH/MM3 12.3 TH/MM3 Lymphocytes # (Auto) 0.9 TH/MM3 0.7 TH/MM3 Monocytes # (Auto) 0.8 TH/MM3 0.9 TH/MM3 Eosinophils # (Auto) 0.0 TH/MM3 0.0 TH/MM3 Basophils # (Auto) 0.0 TH/MM3 0.1 TH/MM3 CBC Comment DIFF FINAL DIFF FINAL Differential Comment Blood Urea Nitrogen 9 MG/DL 8 MG/DL 8 MG/DL Creatinine 0.43 MG/DL 0.33 MG/DL 0.38 MG/DL Random Glucose 98 MG/DL 101 MG/DL 95 MG/DL Calcium Level 8.9 MG/DL 8.6 MG/DL 8.4 MG/DL Sodium Level 130 MEQ/L 132 MEQ/L 133 MEQ/L Potassium Level 2.7 MEQ/L 3.7 MEQ/L 3.4 MEQ/L 3.6 MEQ/L Chloride Level 89 MEQ/L 98 MEQ/L 101 MEQ/L Carbon Dioxide Level 26.0 MEQ/L 21.2 MEQ/L 21.6 MEQ/L Anion Gap 15 MEQ/L 13 MEQ/L 10 MEQ/L Estimat Glomerular Filtration Rate 154 ML/MIN 208 ML/MIN 177 ML/MIN Total Bilirubin 1.6 MG/DL 1.6 MG/DL Direct Bilirubin 0.6 MG/DL 0.6 MG/DL Indirect Bilirubin 1.0 MG/DL 1.0 MG/DL Aspartate Amino Transf (AST/SGOT) 51 U/L 37 U/L Alanine Aminotransferase (ALT/SGPT) 24 U/L 19 U/L Alkaline Phosphatase 195 U/L 153 U/L Total Protein 7.7 GM/DL 6.7 GM/DL Albumin 3.8 GM/DL 3.4 GM/DL Magnesium Level 1.7 MG/DL 1.6 MG/DL ASSESSMENT/PLAN: n,v most likely secondary etoh use -resolved DT's abdominal pain possible gastritis, pud ct showed possible colitis, patient states she has a history of colitis hepatic steatosis secondary etoh Recommendations diet as per speech therapy ppi stool studies egd possible colonoscopy/felxi when clinically better It was a pleasure seeing Sasha Askew. Thank you for this consult. Entered by: Laya Murdock MD Jul 30, 2017 17:31
[2017-07-30] MEDS: MORPHINE SULFATE 15 MG TAB PO PRN ×2 (20:57)
[2017-07-31] VITALS (22 sets, daily range): BP systolic 135–176; BP diastolic 73–99; PULSE 74–100; RESP 12–27; TEMP 98.3–99.2; O2SAT 92–97
[2017-07-31] MEDS: hydrALAZINE HCL 20 MG/ML VIAL IV PUSH PRN ×4 (01:52→13:56)
[2017-07-31] MEDS: MORPHINE SULFATE 2 MG/ML INJ IV PUSH PRN ×4 (04:10→11:49)
[2017-07-31] MEDS: HEPARIN SODIUM - SQ 10,000 UNITS/ML VIAL SQ SCH ×6 (07:15→21:28)
[2017-07-31] MEDS ORDERED: ONDANSETRON HCL 4 MG/2 ML VIAL IV PUSH PRN ×2 (11:30)
[2017-07-31] MEDS: PANTOPRAZOLE SODIUM 40 MG VIAL IV PUSH SCH ×4 (11:49→21:28)
[2017-07-31] MEDS: LISINOPRIL 20 MG TAB PO SCH ×4 (11:49→21:27)
[2017-07-31] MEDS: SODIUM CHLORIDE 0.9% FLUSH 10 ML FLUSH IV FLUSH SCH ×4 (11:52→20:16)
[2017-07-31] MEDS: ONDANSETRON HCL 4 MG/2 ML VIAL IV PUSH PRN ×4 (11:55→20:16)
--- NOTE | 2017-07-31 13:42 | PD.PSY.CON ---
Provisional Diagnosis Admission Date Jul 28, 2017 at 11:56 Ulysses I. Alcohol induced mood disorder, alcohol use disorder Ulysses II. Deferred Ulysses III. Hypertension, Crohn disease History of Present Illness Service Psychiatry Consult Requested By Primary medical team Reason for Consult Alcohol withdrawal Primary Care Physician No Primary Care Physician HPI The patient is a 51 year-old woman, domiciled with a sister in [place], she is single, she is part-time employed as a home health aid, without any previous psychiatric history, no previous psychotic admissions, no previous suicidal attempts, alcohol use disorder, medical history hypertension and chronic disease, who came to the ER with Epigastric pain, improved since admission. Diagnosed with Hepatic steatosis and possible colitis on CT but no diverticulitis- therefore Stopping abx since there is not infection at this time. Patient developed DVT during the hospitalization. On psychiatric evaluation today the patient reports feeling much better, even though still have some abdominal pain. Patient also states that she feels irritable due to lack of sleep at night. Patient reports depressed mood mostly secondary to current hospitalization. But she denies symptoms of depression such as anhedonia, hopelessness, helplessness, worthlessness, suicidal and homicidal ideation, visual and auditory hallucinations. Patient is states that he has been drinking alcohol 3-4 times per week, in the last weeks every day, 3-4 drinks of vodka. Patient denies symptomatology of withdrawal in the past, never had been in a detox or rehabilitation program in the past. He does say that alcohol intake has increased in the last month. Denies the use of illegal drugs such as marijuana, cocaine, heroine or others. At this moment there is no evidence or objective symptoms of withdrawal, the patient is fully oriented 3, is not delirium present, there is not perceptual disturbances sensed of reported. Review of Systems Endocrine: DENIES: Abnorml menstrual pattern, Heat/cold intolerance, Polydipsia , Polyuria, Polyphagia Eyes: DENIES: Blurred vision, Diplopia, Eye inflammation, Eye pain, Vision loss , Photosensitivity, Double Vision Ears, nose, mouth, throat: DENIES: Tinnitus, Hearing loss, Vertigo, Nasal discharge, Oral lesions, Throat pain, Hoarseness, Ear Pain, Running Nose, Epistaxis, Sinus Pain, Toothache, Odynophagia Respiratory: DENIES: Apneas, Cough, Snoring, Wheezing, Hemoptysis, Sputum production, Shortness of breath Gastrointestinal: COMPLAINS OF: Abdominal pain Genitourinary: DENIES: Abnormal vaginal bleeding, Dysmenorrhea, Dyspareunia, Sexual dysfunction, Urinary frequency, Urinary incontinence, Urgency, Hematuria , Dysuria, Nocturia, Vaginal discharge Musculoskeletal: DENIES: Joint pain, Muscle aches, Stiffness, Joint Swelling, Back pain, Neck pain Immunologic/allergic: DENIES: Eczema, Urticaria Neurologic: DENIES: Abnormal gait, Headache, Localized weakness, Paresthesias, Seizures, Speech Problems, Tremor, Poor Balance Psychiatric: DENIES: Anxiety, Confusion, Mood changes, Depression, Hallucinations, Agitation, Suicidal Ideation, Homicidal Ideation, Delusions Past Family Social History Coded Allergies: No Known Allergies (Unverified , 07/28/17) Active Scripts Ranitidine (Zantac) 150 Mg Tab, 150 MG PO BID for Reduce Stomach Acid, #20 TAB 0 Refills Prov:Cameron Solano MD 06/15/17 Ondansetron Odt (Zofran Odt) 4 Mg Tab, 4 MG SL Q6HR Y for Nausea/Vomiting, #10 TAB 0 Refills Prov:Cameron Solano MD 06/15/17 Reported Medications Lisinopril (Lisinopril) 20 Mg Tab, 20 MG PO BID, #30 TAB 0 Refills 07/28/17 Discontinued Reported Medications Promethazine (Phenergan) 25 Mg Tablet, 25 MG PO ONCE for Nausea/Vomiting, #1 TAB 0 Refills 06/15/17 Discontinued Scripts Hydrocodone-Acetaminophen ([place]) 5-325 mg Tab, 1 TAB PO Q6H Y for PAIN, #15 TAB 0 Refills Prov:Cameron Solano MD 06/15/17 Current Medications Medications (Trade) Dose Ordered Sig/Mel Route Start Time Stop Time Status Last Admin (NS Flush) 2 ml UNSCH PRN IV FLUSH 07/28/17 04:45 07/28/17 04:54 (NS Flush) 2 ml UNSCH PRN IV FLUSH 07/28/17 06:45 (NS Flush) 2 ml BID IV FLUSH 07/28/17 09:00 07/31/17 11:52 (Narcan Inj) 0.4 mg UNSCH PRN IV PUSH 07/28/17 06:45 (Romazicon Inj) 0.2 mg Q1M PRN IV PUSH 07/28/17 06:45 (Ativan) 1 mg Q4H PRN PO 07/28/17 06:45 07/29/17 04:29 (Ativan Inj) 1 mg Q4H PRN IV PUSH 07/28/17 06:45 (Ativan) 2 mg Q2H PRN PO 07/28/17 06:45 (Ativan Inj) 2 mg Q2H PRN IV PUSH 07/28/17 06:45 07/30/17 15:27 (Ativan Inj) 2 mg Q1H PRN IV PUSH 07/28/17 06:45 07/30/17 06:33 (Ativan Inj) 2 mg Q15M PRN IV PUSH 07/28/17 06:45 (Protonix Inj) 40 mg Q12H IV PUSH 07/28/17 09:00 07/31/17 11:49 (Zofran Inj) 4 mg Q6HR PRN IV PUSH 07/28/17 09:00 07/31/17 11:55 (Phenergan Inj) 25 mg Q6H PRN IM 07/28/17 10:00 07/28/17 19:16 (Vasotec Inj) 1.25 mg Q6H PRN IV PUSH 07/28/17 10:00 07/30/17 15:27 (Apresoline Inj) 20 mg Q6HR PRN IV PUSH 07/28/17 10:00 07/31/17 01:52 (Librium) 5 mg TID PO 07/29/17 13:00 07/31/17 11:48 (Msir) 15 mg Q8HR PRN PO 07/29/17 14:30 07/30/17 20:57 (Prinivil) 20 mg BID PO 07/30/17 11:15 07/31/17 11:49 (Morphine Inj) 2 mg Q6HR PRN IV PUSH 07/30/17 12:30 07/31/17 11:49 Thiamine HCl 100 mg/Sodium Chloride 101 ml @ 101 mls/hr DAILY@1500 IV 07/30/17 15:00 07/30/17 15:12 (Heparin Inj) 5,000 units Q8HR SQ 07/30/17 14:00 07/31/17 07:15 Family Psych History Patient denies family psychiatric history Social History Is was born and raised in [place], she lives in [place] with her sister, she is part-time employed as a home health aid , highest level of education is 12th grade Patient's Strengths (min. 2) Verbal communication Physical Exam Vital Signs Vital Signs Date Time Temp Pulse Resp B/P (MAP) Pulse Ox O2 Delivery O2 Flow Rate FiO2 07/31/17 09:00 88 17 152/87 (108) 95 07/31/17 08:59 21 07/31/17 08:00 98.3 07/31/17 08:00 Room Air 07/30/17 10:05 1.00 I/O 07/31/17 07/31/17 08/01/17 08:00 16:00 00:00 Intake Total 0 ml 518 ml Balance 0 ml 518 ml Lab Results Test 07/30/17 15:00 Blood Urea Nitrogen 8 MG/DL Creatinine 0.38 MG/DL Random Glucose 95 MG/DL Calcium Level 8.4 MG/DL Sodium Level 133 MEQ/L Potassium Level 3.6 MEQ/L Chloride Level 101 MEQ/L Carbon Dioxide Level 21.6 MEQ/L Anion Gap 10 MEQ/L Estimat Glomerular Filtration Rate 177 ML/MIN Mental Status Examination Appearance: Appropriate Consciousness: Alert Orientation: x4 Motor Activity: Normal gait Speech: Unremarkable Language: Adequate Fund of Knowledge: Adequate Attention and Concentration: Adequate Memory: Unremarkable Mood: Appropriate Affect: Appropriate Thought Process & Associations: Intact Thought Content: Appropriate Hallucination Type: None Delusion Type: None Suicidal Ideation: No Suicidal Plan: No Suicidal Intention: No Homicidal Ideation: No Homicidal Plan: No Homicidal Intention: No Insight: Adequate Judgment: Adequate Assessment & Plan Problem List: (1) Alcohol abuse with alcohol-induced mood disorder ICD Codes: F10.14 - Alcohol abuse with alcohol-induced mood disorder Assessment & Plan: On psychiatric evaluation today patient does not present any significant, concerning for acute hectic of subjective symptomatology of depression, anxiety, alma rosa or psychosis. Patient denies suicidal and homicidal ideation, patient denies visual and auditory hallucinations. Patient is fully oriented 3, no fluctuation of consciousness, no perceptual disturbances, no gross cognitive impairment present. At the moment of this evaluation there is no objective symptomatology of withdrawal either. She seems to be responding only to current scale of chlordiazepoxide and CIWA protocol. I did not see any necessity to do any change, just continue decreasing current scale by 25% every day, as needed and as the patient can tolerate. She seems to be motivated to be referred to a rehabilitation program. Extensive psychoeducation, supportive motivation provided. She does not meet criteria for psychiatric admission. Consult appreciated. Assessment & Plan Estimated LOS: Diogenes Hdez MD Jul 31, 2017 13:42
[2017-07-31] MEDS: THIAMINE INJ 100 MG in SODIUM CHLORIDE 0.9% INJ 100 ML IV SCH ×4 (13:56)
[2017-07-31] MEDS: MORPHINE SULFATE 15 MG TAB PO PRN ×4 (15:23→23:24)
--- NOTE | 2017-07-31 16:13 | HHI.PR ---
Subjective Remarks Nursing denies any deterioration since last night. Reports that the patient is actually improved. Patient herself says she still has abdominal pain, says the morphine does not help much at all. Says she is taking [place] at home on a daily basis whenever she had pain. No bloody stools reported in the last 24 hours. Objective Vital Signs Date Time Temp Pulse Resp B/P (MAP) Pulse Ox O2 Delivery O2 Flow Rate FiO2 07/31/17 13:00 74 16 175/97 (123) 96 07/31/17 12:00 82 07/31/17 12:00 82 15 155/94 (114) 96 07/31/17 11:00 76 14 164/94 (117) 94 07/31/17 10:00 88 20 159/90 (113) 95 07/31/17 09:00 88 17 152/87 (108) 95 07/31/17 08:59 95 21 07/31/17 08:00 85 07/31/17 08:00 98.3 84 17 163/89 (113) 95 07/31/17 08:00 96 Room Air 07/31/17 07:00 82 20 151/92 (111) 96 07/31/17 06:00 90 18 156/88 (110) 94 07/31/17 05:00 90 26 135/81 (99) 94 07/31/17 04:00 88 07/31/17 04:00 98.6 88 17 155/88 (110) 94 07/31/17 03:00 98 21 141/73 (95) 92 07/31/17 02:00 86 21 158/89 (112) 96 07/31/17 01:00 80 21 172/99 (123) 94 07/31/17 00:00 94 07/31/17 00:00 99.2 94 27 159/92 (114) 97 07/30/17 23:40 96 21 07/30/17 22:00 90 18 163/92 (115) 97 07/30/17 21:00 92 20 177/90 (119) 96 07/30/17 20:00 96 Room Air 07/30/17 20:00 97 07/30/17 20:00 98.1 94 21 150/93 (112) 96 07/30/17 19:00 100 28 152/87 (108) 07/30/17 16:55 183/112 (135) I/O 07/30/17 07/30/17 07/30/17 07/31/17 07/31/17 07/31/17 07:00 15:00 23:00 07:00 15:00 23:00 Intake Total 1208 ml 820 ml 615 ml 0 ml 518 ml Balance 1208 ml 820 ml 615 ml 0 ml 518 ml Intake Oral 0 ml 0 ml IV Total 1208 ml 820 ml 615 ml 518 ml # Voids 3 1 6 2 # Bowel Movements 0 0 Result Diagram: 07/30/17 0730 07/30/17 1500 Objective Remarks Is actually awake and alert and oriented lying in bed No acute distress Has mild abdominal tenderness diffusely, soft, nondistended, no jaundice A/P Assessment and Plan Epigastric pain - improved since admission - likely multifactorial from severe hepatic steatosis and possible colitis on CT but no diverticulitis- therefore Stopping abx since there is not infection at this time. -We'll give only oral morphine if and when she is awake enough to tolerate by mouth medicines since she is going through delirium tremens at this time - protonix IV - CBC stable GI recommending scoping when more stable. hepatic steatosis - likely 2/2 ETOH usage, avoid acetaminophen containing products for now DTs - finally showing sustained improvement, continue CIWA protocol, continue scheduled Librium, will stop if LFTs are getting worse today (lab pending) - thiamine injection daily, consulting psychiatry w/ help w/ detox Hyponatremia chronic - likely 2/2 ETOH - IVFs until pt comes out of DTs and tolerates po intake Hypertension. resume lisinopril when she is able to take by mouth. Diffuse wasting secondary to debility secondary to delirium tremens - fall precautions with starting physical therapy and occupational therapy Tobacco abuse. Patient counseled on cessation. starting diet. -DVT prophylaxis with SCDs. can't give heparin due to possible GI bleed Aroldo Demarco MD Jul 31, 2017 16:13
[2017-07-31] MEDS: LORazepam 1 MG TAB PO PRN ×2 (21:26)
[2017-08-01] VITALS (10 sets, daily range): BP systolic 133–178; BP diastolic 78–96; PULSE 61–82; RESP 10–36; TEMP 97.9–99.2; O2SAT 92–98
[2017-08-01] MEDS: HEPARIN SODIUM - SQ 10,000 UNITS/ML VIAL SQ SCH ×6 (05:41→22:38)
[2017-08-01] MEDS: ENALAPRILAT 1.25 MG/ML VIAL IV PUSH PRN ×2 (05:41)
[2017-08-01] MEDS: SODIUM CHLORIDE 0.9% FLUSH 10 ML FLUSH IV FLUSH SCH ×4 (08:05→20:25)
[2017-08-01] MEDS: MORPHINE SULFATE 15 MG TAB PO PRN ×6 (08:05→18:31)
[2017-08-01] MEDS: PANTOPRAZOLE SODIUM 40 MG VIAL IV PUSH SCH ×4 (08:05→20:25)
[2017-08-01] MEDS: LISINOPRIL 20 MG TAB PO SCH ×4 (08:06→20:25)
--- NOTE | 2017-08-01 10:17 | HHI.GIFU ---
Subjective Remarks Patient was seen and examined, laying in bed comfortably, fully alert and oriented at this time, had 1 bowel movement today which was soft but no diarrhea Objective Vitals I&O Vital Signs Date Time Temp Pulse Resp B/P (MAP) Pulse Ox O2 Delivery O2 Flow Rate FiO2 08/01/17 07:30 96 21 08/01/17 04:00 61 08/01/17 04:00 98.4 67 16 166/95 (118) 97 08/01/17 00:00 80 08/01/17 00:00 99.2 79 26 136/83 (100) 96 07/31/17 20:35 93 21 07/31/17 20:00 79 07/31/17 20:00 Room Air 07/31/17 20:00 98.4 80 15 143/82 (102) 95 07/31/17 17:00 74 12 156/90 (112) 96 07/31/17 16:00 79 07/31/17 16:00 80 13 161/92 (115) 96 07/31/17 15:00 100 21 151/81 (104) 95 07/31/17 14:03 78 20 176/99 (124) 96 07/31/17 14:00 88 20 175/99 (124) 96 07/31/17 13:00 74 16 175/97 (123) 96 07/31/17 12:00 82 07/31/17 12:00 82 15 155/94 (114) 96 07/31/17 11:00 76 14 164/94 (117) 94 I/O 07/31/17 07/31/17 07/31/17 08/01/17 08/01/17 08/01/17 07:00 15:00 23:00 07:00 15:00 23:00 Intake Total 0 ml 619 ml 160 ml 240 ml Output Total 400 ml Balance 0 ml 619 ml 160 ml -160 ml Intake Oral 0 ml 160 ml 240 ml IV Total 619 ml 0 ml Output Urine Total 400 ml # Voids 2 3 2 # Bowel Movements 0 0 Physical Exam HEENT: Pupils round and reactive to light; normocephalic; atraumatic; no jaundice. Throat is clear. NECK: Neck is supple, no JVD, no lymphadenopathy. CHEST: Chest is clear to auscultation and percussion. CARDIAC: Regular rate and rhythm with no murmur gallop or rubs. ABDOMEN: Soft, nondistended, nontender; no hepatosplenomegaly; bowel sounds are present in all four quadrants. EXTREMITIES: No clubbing, cyanosis, or edema. SKIN: Normal; no rash; no jaundice. BUSINESS PROCESS CONSULTANT: No focal deficits; alert and oriented times three. Assessment and Plan Plan Patient is awake and oriented now, most likely alcohol induce episode, liver function test is improving, patient was instructed to avoid alcohol completely and she is agreeable to do that, Abnormal CT scan most likely lack of distention of the colon rather than colitis because patient does not have any symptom and no diarrhea at this time Okay to transfer to regular floor Okay to advance diet as tolerated Continue current supportive care Kalpana Barber MD Aug 01, 2017 10:17
[2017-08-01] MEDS ORDERED: SUCRALFATE 1 GM TAB PO ONE ×2 (10:30)
[2017-08-01] MEDS: THIAMINE INJ 100 MG in SODIUM CHLORIDE 0.9% INJ 100 ML IV SCH ×4 (15:11)
--- NOTE | 2017-08-01 15:32 | HHI.PR ---
Subjective Remarks Nursing denies any deterioration since last night. No bowel movements since last night up to when I saw her this morning.. Patient herself says that the morphine at every 8 hours as not controlling her pain adequately and she is trying not to complain about it. She thinks that at times her pain flares up more when she eats Objective Vital Signs Date Time Temp Pulse Resp B/P (MAP) Pulse Ox O2 Delivery O2 Flow Rate FiO2 08/01/17 13:41 158/78 (104) 08/01/17 12:00 98.1 68 16 178/96 (123) 98 08/01/17 10:00 64 10 162/88 (112) 95 08/01/17 09:00 82 19 143/89 (107) 92 08/01/17 08:00 98.6 74 11 140/85 (103) 93 08/01/17 08:00 76 08/01/17 07:30 96 21 08/01/17 07:00 70 36 151/81 (104) 94 08/01/17 04:00 61 08/01/17 04:00 98.4 67 16 166/95 (118) 97 08/01/17 00:00 80 08/01/17 00:00 99.2 79 26 136/83 (100) 96 07/31/17 20:35 93 21 07/31/17 20:00 79 07/31/17 20:00 Room Air 07/31/17 20:00 98.4 80 15 143/82 (102) 95 07/31/17 17:00 74 12 156/90 (112) 96 07/31/17 16:00 79 07/31/17 16:00 80 13 161/92 (115) 96 I/O 07/31/17 07/31/17 07/31/17 08/01/17 08/01/17 08/01/17 07:00 15:00 23:00 07:00 15:00 23:00 Intake Total 0 ml 619 ml 160 ml 240 ml Output Total 400 ml Balance 0 ml 619 ml 160 ml -160 ml Intake Oral 0 ml 160 ml 240 ml IV Total 619 ml 0 ml Output Urine Total 400 ml # Voids 2 3 2 # Bowel Movements 0 0 Result Diagram: 07/30/17 0730 07/30/17 1500 Objective Remarks awake and alert and oriented lying in bed No acute distress Has mild abdominal tenderness diffusely, soft, nondistended, no jaundice A/P Assessment and Plan Epigastric pain - improved since admission - likely multifactorial from severe hepatic steatosis and possible gastritis, gastroenterology following - Continue Protonix, will switch morphine down to every 6 hours as needed for pain, will start miralax to counter constipation - Repeating CBC to trend hemoglobin in a.m., GI recommending scoping when more stable. Suspected GI bleed - Stable since admission, now more clinically stable for endoscopy, will touch base with GI for possible procedure date hepatic steatosis - likely 2/2 ETOH usage, avoid acetaminophen containing products for now DTs - Continue scheduled Librium, significantly improved since admission Hyponatremia chronic - likely 2/2 ETOH - IVFs until pt comes out of DTs and tolerates po intake Hypertension. lisinopril when she is able to take by mouth. Diffuse wasting secondary to debility secondary to delirium tremens - fall precautions with starting physical therapy and occupational therapy Tobacco abuse. Patient counseled on cessation. starting diet. -DVT prophylaxis with SCDs. can't give heparin due to possible GI bleed Aroldo Demarco MD Aug 01, 2017 15:32
[2017-08-01] MEDS: POLYETHYLENE GLYCOL 17 GM PKG PO SCH ×2 (16:00)
[2017-08-01] MEDS ORDERED: METHYLNALTREXONE BROMIDE 12 MG/0.6 ML VIAL SQ ONE ×2 (16:00)
[2017-08-01] MEDS: ONDANSETRON HCL 4 MG/2 ML VIAL IV PUSH PRN ×2 (18:31)
[2017-08-02] VITALS: BP 126/77; PULSE 84; RESP 18; TEMP 96.9; O2SAT 97
[2017-08-02] MEDS: MORPHINE SULFATE 15 MG TAB PO PRN ×10 (00:41→20:16)
[2017-08-02] MEDS: ONDANSETRON HCL 4 MG/2 ML VIAL IV PUSH PRN ×8 (00:42→20:17)
[2017-08-02 04:58] VITALS: BP 129/79; PULSE 71; RESP 16; TEMP 97.2; O2SAT 98
[2017-08-02] MEDS: HEPARIN SODIUM - SQ 10,000 UNITS/ML VIAL SQ SCH ×6 (05:45→20:39)
[2017-08-02 06:52] LABS: AUTOMATED NEUTROPHIL # 5.1 TH/MM3 (1.8-7.7); BASOPHIL # 0.1 TH/MM3 (0-0.2); BASOPHIL % 1.2 % (0.0-2.0); EOSINOPHIL # 0.1 TH/MM3 (0-0.4); EOSINOPHIL % 1.8 % (0.0-4.0); HEMATOCRIT 43.9 % (35.0-46.0); HEMOGLOBIN 14.9 GM/DL (11.6-15.3); LYMPH % 20.1 % (9.0-44.0); LYMPHOCYTE # 1.4 TH/MM3 (1.0-4.8); MEAN CELL VOLUME 108.5 FL (80.0-100.0); MEAN PLATELET VOLUME 8.5 FL (7.0-11.0); MONO % 6.9 % (0.0-8.0); MONOCYTE # 0.5 TH/MM3 (0-0.9); PLATELET COUNT 235 TH/MM3 (150-450); RED BLOOD COUNT 4.05 MIL/MM3 (4.00-5.30); RED CELL DISTRIBUTION WIDTH 12.9 % (11.6-17.2); WHITE BLOOD COUNT 7.2 TH/MM3 (4.0-11.0)
[2017-08-02 07:22] LABS: BICARBONATE 28.3 MEQ/L (21.0-32.0); CALCIUM 8.8 MG/DL (8.5-10.1); CREATININE 0.46 MG/DL (0.50-1.00)
[2017-08-02 08:00] VITALS: BP 151/93; PULSE 62; RESP 18; TEMP 97.9; O2SAT 98
[2017-08-02] MEDS: THIAMINE HCL 100 MG TAB PO SCH ×2 (08:26)
[2017-08-02] MEDS: FAMOTIDINE 20 MG TAB PO SCH ×4 (08:26→20:15)
[2017-08-02] MEDS: LISINOPRIL 20 MG TAB PO SCH ×4 (08:26→20:38)
[2017-08-02] MEDS: POLYETHYLENE GLYCOL 17 GM PKG PO SCH ×2 (08:27)
[2017-08-02] MEDS: SODIUM CHLORIDE 0.9% FLUSH 10 ML FLUSH IV FLUSH SCH ×4 (08:27→20:15)
[2017-08-02] MEDS ORDERED: POTASSIUM CHLORIDE 10 MEQ CONTROLLED RELEASE TAB PO ONE ×2 (09:00)
--- NOTE | 2017-08-02 09:00 | HHI.GIFU ---
Subjective Remarks Patient is laying in bed comfortably was seen and examined, was transferred from the ICU, still complaining of some nauseaand now loose stool but she was taking stool softener Objective Vitals I&O Vital Signs Date Time Temp Pulse Resp B/P (MAP) Pulse Ox O2 Delivery O2 Flow Rate FiO2 08/02/17 08:27 18 08/02/17 08:00 97.9 62 18 151/93 (112) 98 08/02/17 04:58 97.2 71 16 129/79 (96) 98 08/02/17 00:00 96.9 84 18 126/77 (93) 97 08/01/17 20:04 97.9 66 18 133/91 (105) 98 08/01/17 13:41 158/78 (104) 08/01/17 12:00 98.1 68 16 178/96 (123) 98 08/01/17 10:00 64 10 162/88 (112) 95 08/01/17 09:00 82 19 143/89 (107) 92 I/O 08/01/17 08/01/17 08/01/17 08/02/17 08/02/17 08/02/17 07:00 15:00 23:00 07:00 15:00 23:00 Intake Total 240 ml 350 ml 101 ml Output Total 400 ml Balance -160 ml 350 ml 101 ml Intake Oral 240 ml 350 ml IV Total 0 ml 101 ml Output Urine Total 400 ml # Voids 2 1 1 2 # Bowel Movements 0 0 1 0 Laboratory Laboratory Tests Test 08/02/17 06:01 White Blood Count 7.2 Red Blood Count 4.05 Hemoglobin 14.9 Hematocrit 43.9 Mean Corpuscular Volume 108.5 Mean Corpuscular Hemoglobin 37.0 Mean Corpuscular Hemoglobin Concent 34.0 Red Cell Distribution Width 12.9 Platelet Count 235 Mean Platelet Volume 8.5 Neutrophils (%) (Auto) 70.0 Lymphocytes (%) (Auto) 20.1 Monocytes (%) (Auto) 6.9 Eosinophils (%) (Auto) 1.8 Basophils (%) (Auto) 1.2 Neutrophils # (Auto) 5.1 Lymphocytes # (Auto) 1.4 Monocytes # (Auto) 0.5 Eosinophils # (Auto) 0.1 Basophils # (Auto) 0.1 CBC Comment DIFF FINAL Differential Comment Blood Urea Nitrogen 6 Creatinine 0.46 Random Glucose 86 Calcium Level 8.8 Sodium Level 136 Potassium Level 2.8 Chloride Level 99 Carbon Dioxide Level 28.3 Anion Gap 9 Estimat Glomerular Filtration Rate 142 Physical Exam HEENT: Pupils round and reactive to light; normocephalic; atraumatic; no jaundice. Throat is clear. NECK: Neck is supple, no JVD, no lymphadenopathy. CHEST: Chest is clear to auscultation and percussion. CARDIAC: Regular rate and rhythm with no murmur gallop or rubs. ABDOMEN: Soft, nondistended, nontender; no hepatosplenomegaly; bowel sounds are present in all four quadrants. EXTREMITIES: No clubbing, cyanosis, or edema. SKIN: Normal; no rash; no jaundice. ORANGE PICKING SUPERVISOR: No focal deficits; alert and oriented times three. Assessment and Plan Plan Patient is awake and oriented now, most likely alcohol induce episode, liver function test is improving, patient was instructed to avoid alcohol completely and she is agreeable to do that, Abnormal CT scan most likely lack of distention of the colon rather than colitis because patient does not have any symptom and no diarrhea at this time 08/02/2017 patient was seen and examined, was transferred from the ICU, seems to be okay but she has black stool and nausea also she has loose stool with possible abnormality on the CT scan We'll put her on clear liquid Plan for upper endoscopy and a colonoscopy tomorrow We'll start prepping her today Continue current supportive care Kalpana Barber MD Aug 02, 2017 09:00
--- NOTE | 2017-08-02 11:41 | HHI.PR ---
Subjective Remarks Nursing reports pt having watery stools. Patient herself still reporting some vague mild diffuse abdominal pain. She vaguely recalls possibly having a C. difficile infection possibly no more than 4 months ago at a different hospital in [place]. Objective Vital Signs Date Time Temp Pulse Resp B/P (MAP) Pulse Ox O2 Delivery O2 Flow Rate FiO2 08/02/17 08:27 18 08/02/17 08:00 97.9 62 18 151/93 (112) 98 08/02/17 04:58 97.2 71 16 129/79 (96) 98 08/02/17 00:00 96.9 84 18 126/77 (93) 97 08/01/17 20:04 97.9 66 18 133/91 (105) 98 08/01/17 13:41 158/78 (104) 08/01/17 12:00 98.1 68 16 178/96 (123) 98 I/O 08/01/17 08/01/17 08/01/17 08/02/17 08/02/17 08/02/17 07:00 15:00 23:00 07:00 15:00 23:00 Intake Total 240 ml 350 ml 101 ml Output Total 400 ml Balance -160 ml 350 ml 101 ml Intake Oral 240 ml 350 ml IV Total 0 ml 101 ml Output Urine Total 400 ml # Voids 2 1 1 2 # Bowel Movements 0 0 1 0 Result Diagram: 08/02/17 0608/02/17600 Objective Remarks awake and alert and oriented lying in bed No acute distress Has mild abdominal tenderness diffusely, soft, nondistended, no jaundice A/P Assessment and Plan Epigastric pain - stable - likely multifactorial from severe hepatic steatosis and possible gastritis, gastroenterology following - Continue Protonix, pain medication, treat underlying issues as below Possible C. difficile diarrhea - as a new problem will workup with PCR Suspected GI bleed - Discussed with gastric urology, plan to perform endoscopy and colonoscopy in a.m.; moving prep ordered hypokalemia - likely due to diarrhea wasting, ordered replacement hepatic steatosis - likely 2/2 ETOH usage, avoid acetaminophen containing products for now DTs - Continue scheduled Librium at a lower dose Hyponatremia - resolved Hypertension. lisinopril when she is able to take by mouth. Diffuse wasting secondary to debility secondary to delirium tremens - fall precautions with starting physical therapy and occupational therapy Tobacco abuse. Patient counseled on cessation. clear liquid diet -DVT prophylaxis with SCDs. can't give heparin due to possible GI bleed Aroldo Demarco MD Aug 02, 2017 11:41
[2017-08-02 12:00] VITALS: BP 105/78; PULSE 63; RESP 16; TEMP 97.1; O2SAT 98
[2017-08-02] MEDS: POTASSIUM CHLORIDE INJ 10 MEQ in SODIUM CHLOR 0.45% 1000 ML INJ 1,000 ML IV SCH ×4 (14:41)
[2017-08-02 16:00] VITALS: BP 161/90; PULSE 57; RESP 18; TEMP 97.2; O2SAT 98
[2017-08-02] MEDS ORDERED: PEG (High)/E-LYTE SOLN 4000 ML BTL PO ONE ×2 (16:00)
[2017-08-02 21:47] VITALS: BP 180/104; PULSE 62; RESP 16; TEMP 96.6; O2SAT 99
[2017-08-03] VITALS (11 sets, daily range): BP systolic 130–198; BP diastolic 70–105; PULSE 60–100; RESP 16–18; TEMP 96.8–98.6; O2SAT 95–100
[2017-08-03] MEDS: MORPHINE SULFATE 15 MG TAB PO PRN ×4 (02:36→11:00)
[2017-08-03] MEDS: ONDANSETRON HCL 4 MG/2 ML VIAL IV PUSH PRN ×8 (02:36→23:25)
[2017-08-03] MEDS: HEPARIN SODIUM - SQ 10,000 UNITS/ML VIAL SQ SCH ×6 (05:15→21:58)
[2017-08-03] MEDS ORDERED: INSULIN HUMAN REGULAR 1,000 UNITS/10 ML VIAL SQ PRN ×2 (06:30)
[2017-08-03] MEDS ORDERED: POVIDONE IODINE 5% (ANTISEPSIS KIT) 4 APPLICATIONS EACH NARE PRN ×2 (06:30)
[2017-08-03] MEDS ORDERED: CHLORHEXIDINE GLUCONATE 2 % 1 PACK (2 CLOTHS) TOPICAL PRN ×2 (06:30)
[2017-08-03] MEDS ORDERED: LACTATED RINGER'S 1000 ML IV PRN ×2 (06:30)
[2017-08-03] MEDS ORDERED: SODIUM CHLORID 0.9% 500 ML IV PRN ×2 (06:30)
[2017-08-03 07:08] LABS: BICARBONATE 29.4 MEQ/L (21.0-32.0)
[2017-08-03 07:11] LABS: CREATININE 0.42 MG/DL (0.50-1.00)
[2017-08-03] MEDS ORDERED: PROPOFOL 200 MG/20 ML AMP IV ONE ×2 (08:22)
--- NOTE | 2017-08-03 08:27 | GIPROC ---
[facility] [address] [place] [address], [id number] COLONOSCOPY PROCEDURE REPORT EXAM DATE: 08/03/2017 PATIENT NAME: Sasha Askew MR #: [id number] BIRTHDATE: 1965 ENDOSCOPIST: Laya López MD ORDER #: [id number] NEWS CLERK: Brenda Ha and Yeny Pruitt STATUS: inpatient INDICATIONS: The patient is a 51 yr old female here for a colonoscopy due to abdominal pain, colitis PROCEDURE PERFORMED: Colonoscopy with biopsy Colonoscopy with polypectomy MEDICATIONS: None and Per Anesthesia. PREP QUALITY: fair PREP TYPE:Other: ESTIMATED BLOOD LOSS: None CONSENT: The patient understands the risks and benefits of the procedure and understands that these risks include, but are not limited to: sedation, allergic reaction, infection, perforation and/or bleeding. Alternative means of evaluation and treatment include, among others: physical exam, x-rays, and/or surgical intervention. The patient elects to proceed with this endoscopic procedure. medical equipment was checked for proper function. Hand hygiene and appropriate measures for infection prevention was taken. After the risks, benefits and alternatives of the procedure were thoroughly explained, Informed consent was verified, confirmed and timeout was successfully executed by the treatment team. A digital exam revealed external hemorrhoids The Pentax EC-3490Li endoscope was introduced through the anus and advanced to the cecum, which was identified by both the appendix and ileocecal valve. The instrument was then slowly withdrawn as the colon was fully examined. COLON FINDINGS: Polyp sessile hepatic flexure-8 mm-hot snare polypectomy with complete removal polyp rectum-biopsy. Diminutive polyp rectum-biopsy random biopsy from ascending colon. Retroflexed views revealed internal hemorrhoids and Retroflexed views revealed small internal hemorrhoids The scope was then completely withdrawn from the patient and the procedure terminated. PROCEDURE WITHDRAWAL TIME:6minutes ADVERSE EVENTS: There were no complications. IMPRESSIONS: 1. Polyp sessile hepatic flexure-8 mm-hot snare polypectomy with complete removal polyp rectum-biopsy 2. Retroflexed views revealed internal hemorrhoids 3. Retroflexed views revealed small internal hemorrhoids 4. Revealed external hemorrhoids RECOMMENDATIONS: 1. Await biopsy results. Biopsy results will not be ready for 7-10 days. If you don't hear from us in two weeks, call our office for results. 2. Benefiber 2 tsp daily 3. Probiotics from any [employer] or health food store 4. Resume diet RECALL: Return 3 years Colonoscopy Laya López MD eSigned: Laya López MD 08/03/2017 8:26 AM cc:
--- NOTE | 2017-08-03 08:27 | GIPROC ---
[facility] [address] [place] [address], [id number] COLONOSCOPY PROCEDURE REPORT EXAM DATE: 08/03/2017 PATIENT NAME: Sasha Askew MR #: [id number] BIRTHDATE: 1965 ENDOSCOPIST: Laya López MD ORDER #: [id number] KNITTING TESTER: Brenda Ha and Yeny Pruitt STATUS: inpatient INDICATIONS: The patient is a 51 yr old female here for a colonoscopy due to abdominal pain, colitis PROCEDURE PERFORMED: Colonoscopy with biopsy Colonoscopy with polypectomy MEDICATIONS: None and Per Anesthesia. PREP QUALITY: fair PREP TYPE:Other: ESTIMATED BLOOD LOSS: None CONSENT: The patient understands the risks and benefits of the procedure and understands that these risks include, but are not limited to: sedation, allergic reaction, infection, perforation and/or bleeding. Alternative means of evaluation and treatment include, among others: physical exam, x-rays, and/or surgical intervention. The patient elects to proceed with this endoscopic procedure. medical equipment was checked for proper function. Hand hygiene and appropriate measures for infection prevention was taken. After the risks, benefits and alternatives of the procedure were thoroughly explained, Informed consent was verified, confirmed and timeout was successfully executed by the treatment team. A digital exam revealed external hemorrhoids The Pentax EC-3490Li endoscope was introduced through the anus and advanced to the cecum, which was identified by both the appendix and ileocecal valve. The instrument was then slowly withdrawn as the colon was fully examined. COLON FINDINGS: Polyp sessile hepatic flexure-8 mm-hot snare polypectomy with complete removal polyp rectum-biopsy. Diminutive polyp rectum-biopsy random biopsy from ascending colon. Retroflexed views revealed internal hemorrhoids and Retroflexed views revealed small internal hemorrhoids The scope was then completely withdrawn from the patient and the procedure terminated. PROCEDURE WITHDRAWAL TIME:6minutes ADVERSE EVENTS: There were no complications. IMPRESSIONS: 1. Polyp sessile hepatic flexure-8 mm-hot snare polypectomy with complete removal polyp rectum-biopsy 2. Retroflexed views revealed internal hemorrhoids 3. Retroflexed views revealed small internal hemorrhoids 4. Revealed external hemorrhoids RECOMMENDATIONS: 1. Await biopsy results. Biopsy results will not be ready for 7-10 days. If you don't hear from us in two weeks, call our office for results. 2. Benefiber 2 tsp daily 3. Probiotics from any [employer] or health food store 4. Resume diet RECALL: Return 3 years Colonoscopy Laya López MD eSigned: Laya López MD 08/03/2017 8:26 AM cc:
--- NOTE | 2017-08-03 08:27 | GIPROC ---
[facility] [address] [place] [address], [id number] COLONOSCOPY PROCEDURE REPORT EXAM DATE: 08/03/2017 PATIENT NAME: Sasha Askew MR #: [id number] BIRTHDATE: 1965 ENDOSCOPIST: Laya López MD ORDER #: [id number] MACHINE PACKER: Brenda Ha and Yeny Pruitt STATUS: inpatient INDICATIONS: The patient is a 51 yr old female here for a colonoscopy due to abdominal pain, colitis PROCEDURE PERFORMED: Colonoscopy with biopsy Colonoscopy with polypectomy MEDICATIONS: None and Per Anesthesia. PREP QUALITY: fair PREP TYPE:Other: ESTIMATED BLOOD LOSS: None CONSENT: The patient understands the risks and benefits of the procedure and understands that these risks include, but are not limited to: sedation, allergic reaction, infection, perforation and/or bleeding. Alternative means of evaluation and treatment include, among others: physical exam, x-rays, and/or surgical intervention. The patient elects to proceed with this endoscopic procedure. medical equipment was checked for proper function. Hand hygiene and appropriate measures for infection prevention was taken. After the risks, benefits and alternatives of the procedure were thoroughly explained, Informed consent was verified, confirmed and timeout was successfully executed by the treatment team. A digital exam revealed external hemorrhoids The Pentax EC-3490Li endoscope was introduced through the anus and advanced to the cecum, which was identified by both the appendix and ileocecal valve. The instrument was then slowly withdrawn as the colon was fully examined. COLON FINDINGS: Polyp sessile hepatic flexure-8 mm-hot snare polypectomy with complete removal polyp rectum-biopsy. Diminutive polyp rectum-biopsy random biopsy from ascending colon. Retroflexed views revealed internal hemorrhoids and Retroflexed views revealed small internal hemorrhoids The scope was then completely withdrawn from the patient and the procedure terminated. PROCEDURE WITHDRAWAL TIME:6minutes ADVERSE EVENTS: There were no complications. IMPRESSIONS: 1. Polyp sessile hepatic flexure-8 mm-hot snare polypectomy with complete removal polyp rectum-biopsy 2. Retroflexed views revealed internal hemorrhoids 3. Retroflexed views revealed small internal hemorrhoids 4. Revealed external hemorrhoids RECOMMENDATIONS: 1. Await biopsy results. Biopsy results will not be ready for 7-10 days. If you don't hear from us in two weeks, call our office for results. 2. Benefiber 2 tsp daily 3. Probiotics from any [facility] or health food store 4. Resume diet RECALL: Return 3 years Colonoscopy Laya López MD eSigned: Laya López MD 08/03/2017 8:26 AM cc:
--- NOTE | 2017-08-03 08:30 | GIPROC ---
[facility] [address] [place] [address], [id number] EGD PROCEDURE REPORT EXAM DATE: 08/03/2017 PATIENT NAME: Sasha Askew MR #: [id number] BIRTHDATE: 1965 ATTENDING: Laya López MD ORDER #: [id number] EXCHANGE TROUBLE SHOOTER: Brenda Ha and Yeny Pruitt STATUS: inpatient INDICATIONS: The patient is a 51 yr old female here for an EGD due to abdominal pain, gi bleeding, nausea, vomiting PROCEDURE PERFORMED: EGD w/ biopsy MEDICATIONS: None and Per Anesthesia. TOPICAL ANESTHETIC: none CONSENT: The patient understands the risks and benefits of the procedure and understands that these risks include, but are not limited to: sedation, allergic reaction, infection, perforation and/or bleeding. Alternative means of evaluation and treatment include, among others: physical exam, x-rays, and/or surgical intervention. The patient elects to proceed with this endoscopic procedure. medical equipment was checked for proper function. Hand hygiene and appropriate measures for infection prevention was taken. After the risks, benefits and alternatives of the procedure were thoroughly explained, Informed consent was verified, confirmed and timeout was successfully executed by the treatment team. The patient was anesthetized with topical anesthesia and the EC-3490Li (Pedi C) endoscope was introduced through the mouth and advanced to the second portion of the duodenum. Retroflexed views revealed a hiatal hernia The gastroscope was then slowly withdrawn and removed. Gastritis antrum-biopsy duodenum normal biopsy esophagitis distal esophagus -biopsy. ADVERSE EVENTS: There were no complications. IMPRESSIONS: 1. Gastritis antrum-biopsy duodenum normal biopsy esophagitis distal esophagus -biopsy 2. Retroflexed views revealed a hiatal hernia RECOMMENDATIONS: 1. Await biopsy results. Biopsy results will not be ready for 7-10 days. If you don't hear from us in two weeks, call our office for biopsy results. 2. Anti-reflux regimen 3. Continue PPI PATIENT CONDITION: stable DISPOSITION: Inpatient REPEAT EXAM: Return 3 years EGD Laya López MD eSigned: Laya López MD 08/03/2017 8:29 AM cc:
--- NOTE | 2017-08-03 08:30 | GIPROC ---
[facility] [address] [place] [address], [id number] EGD PROCEDURE REPORT EXAM DATE: 08/03/2017 PATIENT NAME: Sasha Askew MR #: [id number] BIRTHDATE: 1965 ATTENDING: Laya López MD ORDER #: [id number] SUPERVISOR CIGAR MAKING MACHINE: Brenda Ha and Yeny Pruitt STATUS: inpatient INDICATIONS: The patient is a 51 yr old female here for an EGD due to abdominal pain, gi bleeding, nausea, vomiting PROCEDURE PERFORMED: EGD w/ biopsy MEDICATIONS: None and Per Anesthesia. TOPICAL ANESTHETIC: none CONSENT: The patient understands the risks and benefits of the procedure and understands that these risks include, but are not limited to: sedation, allergic reaction, infection, perforation and/or bleeding. Alternative means of evaluation and treatment include, among others: physical exam, x-rays, and/or surgical intervention. The patient elects to proceed with this endoscopic procedure. medical equipment was checked for proper function. Hand hygiene and appropriate measures for infection prevention was taken. After the risks, benefits and alternatives of the procedure were thoroughly explained, Informed consent was verified, confirmed and timeout was successfully executed by the treatment team. The patient was anesthetized with topical anesthesia and the EC-3490Li (Pedi C) endoscope was introduced through the mouth and advanced to the second portion of the duodenum. Retroflexed views revealed a hiatal hernia The gastroscope was then slowly withdrawn and removed. Gastritis antrum-biopsy duodenum normal biopsy esophagitis distal esophagus -biopsy. ADVERSE EVENTS: There were no complications. IMPRESSIONS: 1. Gastritis antrum-biopsy duodenum normal biopsy esophagitis distal esophagus -biopsy 2. Retroflexed views revealed a hiatal hernia RECOMMENDATIONS: 1. Await biopsy results. Biopsy results will not be ready for 7-10 days. If you don't hear from us in two weeks, call our office for biopsy results. 2. Anti-reflux regimen 3. Continue PPI PATIENT CONDITION: stable DISPOSITION: Inpatient REPEAT EXAM: Return 3 years EGD Laya López MD eSigned: Laya López MD 08/03/2017 8:29 AM cc:
--- NOTE | 2017-08-03 08:30 | GIPROC ---
[facility] [address] [place] [address], [id number] EGD PROCEDURE REPORT EXAM DATE: 08/03/2017 PATIENT NAME: Sasha Askew MR #: [id number] BIRTHDATE: 1965 ATTENDING: Laya López MD ORDER #: [id number] PSYCHIATRIC ORDERLY: Brenda Ha and Yeny Pruitt STATUS: inpatient INDICATIONS: The patient is a 51 yr old female here for an EGD due to abdominal pain, gi bleeding, nausea, vomiting PROCEDURE PERFORMED: EGD w/ biopsy MEDICATIONS: None and Per Anesthesia. TOPICAL ANESTHETIC: none CONSENT: The patient understands the risks and benefits of the procedure and understands that these risks include, but are not limited to: sedation, allergic reaction, infection, perforation and/or bleeding. Alternative means of evaluation and treatment include, among others: physical exam, x-rays, and/or surgical intervention. The patient elects to proceed with this endoscopic procedure. medical equipment was checked for proper function. Hand hygiene and appropriate measures for infection prevention was taken. After the risks, benefits and alternatives of the procedure were thoroughly explained, Informed consent was verified, confirmed and timeout was successfully executed by the treatment team. The patient was anesthetized with topical anesthesia and the EC-3490Li (Pedi C) endoscope was introduced through the mouth and advanced to the second portion of the duodenum. Retroflexed views revealed a hiatal hernia The gastroscope was then slowly withdrawn and removed. Gastritis antrum-biopsy duodenum normal biopsy esophagitis distal esophagus -biopsy. ADVERSE EVENTS: There were no complications. IMPRESSIONS: 1. Gastritis antrum-biopsy duodenum normal biopsy esophagitis distal esophagus -biopsy 2. Retroflexed views revealed a hiatal hernia RECOMMENDATIONS: 1. Await biopsy results. Biopsy results will not be ready for 7-10 days. If you don't hear from us in two weeks, call our office for biopsy results. 2. Anti-reflux regimen 3. Continue PPI PATIENT CONDITION: stable DISPOSITION: Inpatient REPEAT EXAM: Return 3 years EGD Laya López MD eSigned: Laya López MD 08/03/2017 8:29 AM cc:
[2017-08-03] MEDS ORDERED: MORPHINE SULFATE 8 MG/ML INJ ONE ×2 (08:44)
[2017-08-03] MEDS: hydrALAZINE HCL 20 MG/ML VIAL IV PUSH PRN ×2 (08:45)
[2017-08-03] MEDS: POLYETHYLENE GLYCOL 17 GM PKG PO SCH ×2 (09:00)
[2017-08-03] MEDS ORDERED: HYDROmorphone HCL PF 1 MG/ML VIAL ONE ×2 (09:18)
[2017-08-03] MEDS ORDERED: METOCLOPRAMIDE HCL 10 MG/2 ML VIAL ONE ×2 (09:19)
[2017-08-03] MEDS ORDERED: METOCLOPRAMIDE HCL 10 MG/2 ML VIAL IV PUSH ONE ×2 (10:00)
[2017-08-03] MEDS: SODIUM CHLORIDE 0.9% FLUSH 10 ML FLUSH IV FLUSH SCH ×4 (10:13→21:58)
[2017-08-03] MEDS: THIAMINE HCL 100 MG TAB PO SCH ×2 (10:14)
[2017-08-03] MEDS: FAMOTIDINE 20 MG TAB PO SCH ×4 (10:14→21:57)
[2017-08-03] MEDS: LISINOPRIL 20 MG TAB PO SCH ×4 (10:14→21:57)
[2017-08-03] MEDS ORDERED: HYDROmorphone HCL PF 1 MG/ML VIAL IV PUSH ONE ×6 (10:45→15:30)
--- NOTE | 2017-08-03 10:46 | HHI.PR ---
Subjective Remarks Nursing denies any deterioration since last night. However she did go for EGD and colonoscopy this morning. Postprocedure patient was experiencing profound pain and nausea although no complications were noted during the procedure per Dr. Asif. Patient seen in PACU, says that she is hurting a lot just like she did when she first came in. Objective Vital Signs Date Time Temp Pulse Resp B/P (MAP) Pulse Ox O2 Delivery O2 Flow Rate FiO2 08/03/17 06:45 96.9 60 18 133/81 (98) 100 08/03/17 06:24 96.9 60 18 133/81 (98) 100 08/03/17 04:56 97.9 61 16 149/87 (107) 99 08/03/17 00:26 97.6 73 18 155/98 (117) 100 08/02/17 21:47 96.6 62 16 180/104 (129) 99 08/02/17 16:00 97.2 57 18 161/90 (113) 98 08/02/17 15:41 18 08/02/17 12:00 97.1 63 16 105/78 (87) 98 I/O 08/02/17 08/02/17 08/02/17 08/03/17 08/03/17 08/03/17 07:00 15:00 23:00 07:00 15:00 23:00 Intake Total 525 ml 655 ml Balance 525 ml 655 ml Intake Oral 525 ml 500 ml IV Total 155 ml # Voids 2 2 5 5 # Bowel Movements 0 0 4 Result Diagram: 08/02/17 0601 08/03/17 0530 Objective Remarks In moderate distress secondary to pain, hunched over and leaning over her abdomen Abdomen is soft, mildly tender to palpation, no rebound, no jaundice A/P Assessment and Plan Epigastric pain - worsened today - We'll obtain a stat abdominal film to rule out any perforation likely multifactorial from severe hepatic steatosis, GI following - Continue Protonix, pain medication, treat underlying issues as below - BMP unremarkable, obtaining LFTs added on today as well as CBC - will try IV breakthrough pain medication Possible C. difficile diarrhea - as a new problem will workup with PCR Suspected GI bleed - no source found on scope hypokalemia - likely due to diarrhea wasting, ordered replacement - still low today, continue 1/2 NS + KCL hepatic steatosis - likely 2/2 ETOH usage, avoid acetaminophen containing products for now DTs - Continue scheduled Librium at a lower dose Hypertension. lisinopril when she is able to take by mouth. Diffuse wasting secondary to debility secondary to delirium tremens - fall precautions with starting physical therapy and occupational therapy Tobacco abuse. Patient counseled on cessation. Will advance to soft diet when tolerating po intake. -DVT prophylaxis with SCDs. can't give heparin due to possible GI bleed Aroldo Demarco MD Aug 03, 2017 10:46
[2017-08-03] MEDS ORDERED: SODIUM CHLORIDE 0.9% INJ 100 ML IV ONE ×2 (11:15)
[2017-08-03 11:41] LABS: ALBUMIN 3.2 GM/DL (3.4-5.0)
--- NOTE | 2017-08-03 11:42 | RADRPT ---
EXAM DATE/TIME: 08/03/2017 10:47 [facility] COMPARISON: No previous studies available for comparison. INDICATIONS : Abdominal pain post upper endoscopy and colonoscopy today. Nausea. MEDICAL HISTORY : colitis SURGICAL HISTORY : Cholecystectomy. ENCOUNTER: Initial ACUITY: 1 day PAIN SCORE: 10/10 LOCATION: Bilateral abdomen FINDINGS: Air is seen throughout the colon and several loops of small bowel which are not distended. There is n o free air or pneumatosis. Calcifications in the pelvis likely reflect phleboliths. Osseous structure s are intact. CONCLUSION: 1. No significant free air status post colonoscopy. 2. Nondistended air-filled loops of colon and small bowel within normal limits given recent endoscopy and colonoscopy. Fito Carter MD on August 03, 2017 at 11:33 Board Certified Radiologist. This report was verified electronically.
[2017-08-03 11:46] LABS: TOTAL BILIRUBIN ADULT 1.1 MG/DL (0.2-1.0)
[2017-08-03 11:47] LABS: TOTAL PROTEIN 6.8 GM/DL (6.4-8.2)
[2017-08-03 11:52] LABS: DIRECT BILIRUBIN ADULT 0.4 MG/DL (0.0-0.2); INDIRECT BILIRUBIN 0.7 MG/DL (0.0-0.8)
[2017-08-03] MEDS ORDERED: SODIUM CHLOR 0.9% 1000 ML INJ 1,000 ML IV ONE ×2 (13:30)
[2017-08-03] MEDS: POTASSIUM CHLORIDE INJ 10 MEQ in SODIUM CHLOR 0.45% 1000 ML INJ 1,000 ML IV SCH ×4 (15:15)
[2017-08-03] MEDS ORDERED: SCOPOLAMINE 1.5 MG PATCH T-DERMAL ONE ×2 (15:30)
[2017-08-03] MEDS ORDERED: PROMETHAZINE INJ 25 MG/ML VIAL IM ONE ×2 (15:30)
[2017-08-03] MEDS: cloNIDine HCL 0.1 MG TAB PO PRN ×2 (15:44)
[2017-08-03] MEDS ORDERED: DIATRIZOATE MEGLUM/DIATRIZOATE SOD 9 ML CUP PO ONE ×2 (16:45)
[2017-08-03] MEDS: ENALAPRILAT 1.25 MG/ML VIAL IV PUSH PRN ×2 (17:47)
[2017-08-03] MEDS ORDERED: IOHEXOL 350 MG/ML 10 ML VIAL (for RAD DIAG) IVCONTRAST ONE ×2 (18:04)
--- NOTE | 2017-08-03 18:20 | RADRPT ---
EXAM DATE/TIME: 08/03/2017 17:57 [facility] COMPARISON: CT ABDOMEN & PELVIS W CONTRAST, July 28, 2017, 5:31. INDICATIONS : Diffuse abdominal pain and nausea since colonoscopy earlier today. IV CONTRAST: 95 cc Omnipaque 350 (iohexol) IV ORAL CONTRAST: No oral contrast ingested. RADIATION DOSE: 5.46 CTDIvol (mGy) MEDICAL HISTORY : Hypertension. Colitis. SURGICAL HISTORY : None. ENCOUNTER: Initial ACUITY: 4 - 6 days PAIN SCALE: 5/10 LOCATION: upper quadrant TECHNIQUE: Volumetric scanning of the abdomen and pelvis was performed. Using automated exposure control and ad justment of the mA and/or kV according to patient size, radiation dose was kept as low as reasonably achievable to obtain optimal diagnostic quality images. DICOM format image data is available electro nically for review and comparison. FINDINGS: LOWER LUNGS: There are small bilateral pleural effusions. No LIVER: Homogeneous density without lesion. There is no dilation of the biliary tree. Esion is status post cholecystectomy. There is diffuse fatty steatosis. SPLEEN: Normal size without lesion. PANCREAS: Within normal limits. KIDNEYS: Normal in size and shape. There is no mass, stone or hydronephrosis. ADRENAL GLANDS: Within normal limits. VASCULAR: There is no aortic aneurysm. BOWEL/MESENTERY: There is mild gaseous distention of portions of the transverse colon. There is no free air or mass ef fect. There is a small amount of fluid in the pelvis. ABDOMINAL WALL: Within normal limits. RETROPERITONEUM: There is no lymphadenopathy. BLADDER: No wall thickening or mass. REPRODUCTIVE: Within normal limits. INGUINAL: There is no lymphadenopathy or hernia. MUSCULOSKELETAL: Within normal limits for patient age. There is mild anasarca with increased density in the soft tissu es. CONCLUSION: 1. Mild anasarca and mild ascites greatest in the pelvis. 2. Small bilateral pleural effusions. 3. Nonspecific, nonobstructive bowel gas pattern most characteristic of a mild ileus. 4. Mild hepatic steatosis. Dell Bowie MD on August 03, 2017 at 18:07 Board Certified Radiologist. This report was verified electronically.
[2017-08-03] MEDS ORDERED: LABETALOL HCL 100 MG/20 ML VIAL IV PUSH PRN ×2 (18:45)
[2017-08-03] MEDS ORDERED: HYDROmorphone HCL PF 1 MG/ML VIAL IV PUSH PRN ×2 (18:45)
[2017-08-04] VITALS (23 sets, daily range): BP systolic 97–229; BP diastolic 60–125; PULSE 23–90; RESP 9–29; TEMP 97.2–99.6; O2SAT 95–100
[2017-08-04] MEDS: ONDANSETRON HCL 4 MG/2 ML VIAL IV PUSH PRN ×6 (04:40→20:23)
[2017-08-04] MEDS: MORPHINE SULFATE 15 MG TAB PO PRN ×2 (06:53)
[2017-08-04] MEDS: HEPARIN SODIUM - SQ 10,000 UNITS/ML VIAL SQ SCH ×6 (06:53→20:23)
[2017-08-04] MEDS: POLYETHYLENE GLYCOL 17 GM PKG PO SCH ×2 (09:00)
[2017-08-04] MEDS: LISINOPRIL 20 MG TAB PO SCH ×4 (09:01→20:23)
[2017-08-04] MEDS: FAMOTIDINE 20 MG TAB PO SCH ×2 (09:01)
[2017-08-04] MEDS: THIAMINE HCL 100 MG TAB PO SCH ×2 (09:01)
[2017-08-04] MEDS: SODIUM CHLORIDE 0.9% FLUSH 10 ML FLUSH IV FLUSH SCH ×4 (09:02→20:23)
[2017-08-04] MEDS ORDERED: KETOROLAC TROMETHAMINE 30 MG/ML (IVP) VIAL IV PUSH PRN ×2 (11:00)
[2017-08-04 12:08] LABS: BLOOD UREA NITROGEN LESS THAN 3 MG/DL (7-18)
[2017-08-04 12:09] LABS: CHLORIDE 94 MEQ/L (98-107); GLOMERULAR FILTRATION RATE 129 ML/MIN (>89); GLUCOSE,RANDOM 106 MG/DL (74-106); SODIUM (NA) 138 MEQ/L (136-145)
[2017-08-04 12:46] LABS: ALBUMIN 2.9 GM/DL (3.4-5.0)
[2017-08-04 12:49] LABS: DIRECT BILIRUBIN ADULT 0.3 MG/DL (0.0-0.2)
[2017-08-04 12:51] LABS: INDIRECT BILIRUBIN 0.4 MG/DL (0.0-0.8); TOTAL BILIRUBIN ADULT 0.7 MG/DL (0.2-1.0); TOTAL PROTEIN 5.9 GM/DL (6.4-8.2)
[2017-08-04 13:14] LABS: CALCIUM 8.6 MG/DL (8.5-10.1)
[2017-08-04] MEDS ORDERED: DICY10CA12 PO ×2 (14:08)
[2017-08-04] MEDS ORDERED: SUCR1TAB PO ×2 (14:09)
[2017-08-04] MEDS ORDERED: OXYC-395 PO ×2 (14:12)
--- NOTE | 2017-08-04 14:13 | HHI.DCPOC ---
Discharge Care Plan Diagnosis: (1) Gastritis (2) Alcohol abuse with alcohol-induced mood disorder Additional Problems 2 TEASPOONS OF BENEFIBER DAILY Goals to Promote Your Health * To prevent worsening of your condition and complications * To maintain your health at the optimal level Directions to Meet Your Goals Take your medications as prescribed Follow your dietary instruction Follow activity as directed Keep your appointments as scheduled Take your immunizations and boosters as scheduled If your symptoms worsen call your PCP, if no PCP go to Urgent Care Center or Emergency Room Smoking is Dangerous to Your Health. Avoid second hand smoke Call the 24-hour hour crisis hotline for domestic abuse at Aroldo Demarco MD Aug 04, 2017 14:13
--- NOTE | 2017-08-04 14:13 | HHI.DCPOC ---
Discharge Care Plan Diagnosis: (1) Gastritis (2) Alcohol abuse with alcohol-induced mood disorder Additional Problems 2 TEASPOONS OF BENEFIBER DAILY Goals to Promote Your Health * To prevent worsening of your condition and complications * To maintain your health at the optimal level Directions to Meet Your Goals Take your medications as prescribed Follow your dietary instruction Follow activity as directed Keep your appointments as scheduled Take your immunizations and boosters as scheduled If your symptoms worsen call your PCP, if no PCP go to Urgent Care Center or Emergency Room Smoking is Dangerous to Your Health. Avoid second hand smoke Call the 24-hour hour crisis hotline for domestic abuse at Aroldo Demarco MD Aug 04, 2017 14:13
--- NOTE | 2017-08-04 14:13 | HHI.DCPOC ---
Discharge Care Plan Diagnosis: (1) Gastritis (2) Alcohol abuse with alcohol-induced mood disorder Additional Problems 2 TEASPOONS OF BENEFIBER DAILY Goals to Promote Your Health * To prevent worsening of your condition and complications * To maintain your health at the optimal level Directions to Meet Your Goals Take your medications as prescribed Follow your dietary instruction Follow activity as directed Keep your appointments as scheduled Take your immunizations and boosters as scheduled If your symptoms worsen call your PCP, if no PCP go to Urgent Care Center or Emergency Room Smoking is Dangerous to Your Health. Avoid second hand smoke Call the 24-hour hour crisis hotline for domestic abuse at Aroldo Demarco MD Aug 04, 2017 14:13
[2017-08-04] MEDS ORDERED: POTA-243 PO ×2 (14:14)
--- NOTE | 2017-08-04 14:14 | HHI.DS ---
Discharge Summary Admission Date Jul 28, 2017 at 11:56 Admitting Diagnosis colitis, intractable abdominal pain, intractable nausea and vomiting (1) HTN (hypertension) ICD Code: I10 - Essential (primary) hypertension (2) Tobacco abuse ICD Code: Z72.0 - Tobacco use (3) Melena ICD Code: K92.1 - Melena (4) Intractable nausea and vomiting ICD Code: R11.2 - Nausea with vomiting, unspecified Status: Acute (5) Intractable abdominal pain ICD Code: R10.9 - Unspecified abdominal pain Status: Acute (6) Colitis ICD Code: K52.9 - Noninfective gastroenteritis and colitis, unspecified Status: Acute (7) Anemia ICD Code: D64.9 - Anemia, unspecified (8) Alcohol withdrawal delirium ICD Code: F10.231 - Alcohol dependence with withdrawal delirium Brief History - From Admission This is a pleasant 51-year-old female with past medical history of hypertension and previous colitis who 4 days ago started to develop epigastric pain associated with diarrhea and tarry black stools and intractable nausea and vomiting. The patient states she has cut back from drinking and typically drinks 2-3 glasses of wine 4 times a week. She does not take NSAIDs. The pain is constant and is severe. No provocative or alleviating factors. The patient has been unable to keep anything by mouth down. The patient does not have insurance and has been off all medications. The patient states that years ago she underwent a colonoscopy which showed colitis. She also had an EGD which was abnormal but she cannot recall what the diagnosis was for that. The patient has been vomiting and states that she has small flecks of red blood in the vomitus. The patient has been having hot and cold chills She has had a cholecystectomy in the past. CBC/BMP: 08/02/17 0601 08/04/17 1130 Significant Findings Laboratory Tests Test 08/02/17 06:01 08/02/17 12:06 08/02/17 19:20 08/03/17 05:30 Mean Corpuscular Volume 108.5 FL (80.0-100.0) Mean Corpuscular Hemoglobin 37.0 PG (27.0-34.0) Blood Urea Nitrogen 6 MG/DL (7-18) 4 MG/DL (7-18) Creatinine 0.46 MG/DL (0.50-1.00) 0.42 MG/DL (0.50-1.00) Potassium Level 2.8 MEQ/L (3.5-5.1) 3.0 MEQ/L (3.5-5.1) Total Bilirubin 1.1 MG/DL (0.2-1.0) Direct Bilirubin 0.4 MG/DL (0.0-0.2) Aspartate Amino Transf (AST/SGOT) 74 U/L (15-37) Alkaline Phosphatase 127 U/L (45-117) Albumin 3.2 GM/DL (3.4-5.0) Test 08/04/17 11:30 Blood Urea Nitrogen LESS THAN 3 MG/DL (7-18) Potassium Level 3.0 MEQ/L (3.5-5.1) Chloride Level 94 MEQ/L (98-107) Direct Bilirubin 0.3 MG/DL (0.0-0.2) Aspartate Amino Transf (AST/SGOT) 70 U/L (15-37) Total Protein 5.9 GM/DL (6.4-8.2) Albumin 2.9 GM/DL (3.4-5.0) Discharge Instructions Speech Therapy-Diet Recommends: Other Aroldo Demarco MD Aug 04, 2017 14:14
[2017-08-04] MEDS ORDERED: OMEP20TA PO ×2 (14:15)
[2017-08-04] MEDS ORDERED: POTASSIUM CHLORIDE 10 MEQ CONTROLLED RELEASE TAB PO ONE ×2 (15:00)
[2017-08-04] MEDS ORDERED: hydrALAZINE HCL 10 MG TAB PO ONE ×2 (15:45)
[2017-08-04] MEDS ORDERED: cloNIDine HCL 0.1 MG TAB PO ONE ×2 (15:45)
[2017-08-04] MEDS ORDERED: PROM12.54 PO ×2 (16:49)
[2017-08-04] MEDS: PROMETHAZINE INJ 25 MG/ML VIAL IM PRN ×4 (16:58→23:19)
[2017-08-04] MEDS ORDERED: cloNIDine HCL 0.1 MG TAB PO PRN ×2 (17:00)
[2017-08-04] MEDS ORDERED: hydrALAZINE HCL 10 MG TAB PO PRN ×2 (17:00)
[2017-08-04] MEDS ORDERED: METOCLOPRAMIDE HCL 10 MG/2 ML VIAL IV PRN ×2 (17:45)
[2017-08-04] MEDS: ENALAPRILAT 1.25 MG/ML VIAL IV PUSH PRN ×2 (17:54)
--- NOTE | 2017-08-04 19:12 | HHI.GIFU ---
Subjective Remarks Patient was doing okay, and she was supposed to be discharged this afternoon, when she started having significant hypertension her blood pressure was above 202 was transferred to the ICU she started having headache complaining of nausea vomiting and some abdominal cramping, she had a colonoscopy yesterday which shows small polyps otherwise normal, KUB was unremarkable Currently patient laying in bed seems to be comfortable but the she is still nauseated and her blood pressure is 206/115 Objective Vitals I&O Vital Signs Date Time Temp Pulse Resp B/P (MAP) Pulse Ox O2 Delivery O2 Flow Rate FiO2 08/04/17 18:00 200/109 (139) 08/04/17 17:00 12 213/107 (142) 08/04/17 16:00 98.7 90 29 229/125 (159) 08/04/17 15:01 187/101 (129) 08/04/17 15:00 72 196/111 (139) 08/04/17 14:00 69 9 148/89 (108) 08/04/17 13:00 66 14 154/91 (112) 97 08/04/17 12:00 99.3 72 9 144/86 (105) 100 08/04/17 11:00 62 13 148/81 (103) 100 08/04/17 10:00 58 13 168/93 (118) 97 08/04/17 09:00 63 10 137/80 (99) 08/04/17 08:00 99.0 64 14 134/79 (97) 96 08/04/17 07:00 64 11 149/86 (107) 97 08/04/17 06:50 69 14 133/86 (102) 96 08/04/17 05:01 98.1 82 18 150/83 (105) 96 08/04/17 04:00 70 18 129/74 (92) 96 08/04/17 02:00 64 18 107/62 (77) 98 08/04/17 01:03 97.2 70 18 97/60 (72) 08/03/17 23:56 16 08/03/17 22:00 82 18 136/80 (98) 98 08/03/17 21:00 76 18 130/70 (90) 97 08/03/17 20:00 98.5 100 18 130/74 (92) 95 08/03/17 19:11 98.6 70 18 140/83 (102 97 I/O 08/03/17 08/03/17 08/03/17 08/04/17 08/04/17 08/04/17 07:00 15:00 23:00 07:00 15:00 23:00 Intake Total 750 ml 1962 ml 100 ml 360 ml Output Total 400 ml Balance 750 ml 1962 ml 100 ml -40 ml Intake Oral 0 ml 100 ml 360 ml IV Total 100 ml 1962 ml Other 650 ml Output Urine Total 400 ml # Voids 5 1 5 4 # Bowel Movements 4 1 0 0 Laboratory Laboratory Tests Test 08/04/17 11:30 08/04/17 14:40 Blood Urea Nitrogen LESS THAN 3 Creatinine 0.50 Random Glucose 106 Calcium Level 8.6 Sodium Level 138 Potassium Level 3.0 Chloride Level 94 Carbon Dioxide Level 29.0 Anion Gap 8 Estimat Glomerular Filtration Rate 129 Total Bilirubin 0.7 Direct Bilirubin 0.3 Indirect Bilirubin 0.4 Aspartate Amino Transf (AST/SGOT) 70 Alanine Aminotransferase (ALT/SGPT) 31 Alkaline Phosphatase 115 Total Protein 5.9 Albumin 2.9 Vitamin B12 Level 925 Physical Exam HEENT: Pupils round and reactive to light; normocephalic; atraumatic; no jaundice. Throat is clear. NECK: Neck is supple, no JVD, no lymphadenopathy. CHEST: Chest is clear to auscultation and percussion. CARDIAC: Regular rate and rhythm with no murmur gallop or rubs. ABDOMEN: Soft, nondistended, mild diffuse tenderness; no hepatosplenomegaly; bowel sounds are present in all four quadrants. EXTREMITIES: No clubbing, cyanosis, or edema. SKIN: Normal; no rash; no jaundice. NETWORK APPLICATIONS SPECIALIST: No focal deficits; alert and oriented times three. Assessment and Plan Plan Patient is awake and oriented now, most likely alcohol induce episode, liver function test is improving, patient was instructed to avoid alcohol completely and she is agreeable to do that, Abnormal CT scan most likely lack of distention of the colon rather than colitis because patient does not have any symptom and no diarrhea at this time 08/02/2017 patient was seen and examined, was transferred from the ICU, seems to be okay but she has black stool and nausea also she has loose stool with possible abnormality on the CT scan 08/04/2017 patient was seen and examined, she was transferred to the ICU and discharge was canceled, she had severe elevation of her blood pressure above 200 , with some nausea vomiting abdominal discomfort most likely the nausea vomiting related to high blood pressure If symptom persist as far as the nausea vomiting abdominal discomfort we will plan on doing CT scan of the abdomen Continue clear liquid advance as tolerated Further plan depends on how she is doing Kalpana Barber MD Aug 04, 2017 19:12
[2017-08-04] MEDS ORDERED: hydrALAZINE HCL 20 MG/ML VIAL IV PUSH PRN ×2 (19:15)
[2017-08-04] MEDS ORDERED: SODIUM CHLOR 0.9% 1000 ML INJ 1,000 ML IV ONE ×2 (19:15)
[2017-08-04] MEDS ORDERED: LABETALOL HCL 100 MG/20 ML VIAL IV PUSH PRN ×2 (19:15)
--- NOTE | 2017-08-04 19:18 | HHI.PR ---
Subjective Remarks Originally pt was feeling better per RN and per pt - was wanting to go home. Tolerated partial breakfast well. Pt was extensively counseled on avoiding NSAIDS due to gastritis. Discharged was ordered; however, RN paged again pt became severely hypertensive and became nauseated w/ vomiting and dry heaving. CT report from yesterday reading possible ileus. Afebrile. Pt says she might have contracted hep C in the past but not sure. As a trial Attempted to eat clear liquid dinner while premedicated w/ reglan, became nauseated further. Objective Vital Signs Date Time Temp Pulse Resp B/P (MAP) Pulse Ox O2 Delivery O2 Flow Rate FiO2 08/04/17 18:00 200/109 (139) 08/04/17 17:00 12 213/107 (142) 08/04/17 16:00 98.7 90 29 229/125 (159) 08/04/17 15:01 187/101 (129) 08/04/17 15:00 72 196/111 (139) 08/04/17 14:00 69 9 148/89 (108) 08/04/17 13:00 66 14 154/91 (112) 97 08/04/17 12:00 99.3 72 9 144/86 (105) 100 08/04/17 11:00 62 13 148/81 (103) 100 08/04/17 10:00 58 13 168/93 (118) 97 08/04/17 09:00 63 10 137/80 (99) 08/04/17 08:00 99.0 64 14 134/79 (97) 96 08/04/17 07:00 64 11 149/86 (107) 97 08/04/17 06:50 69 14 133/86 (102) 96 08/04/17 05:01 98.1 82 18 150/83 (105) 96 08/04/17 04:00 70 18 129/74 (92) 96 08/04/17 02:00 64 18 107/62 (77) 98 08/04/17 01:03 97.2 70 18 97/60 (72) 08/03/17 23:56 16 08/03/17 22:00 82 18 136/80 (98) 98 08/03/17 21:00 76 18 130/70 (90) 97 08/03/17 20:00 98.5 100 18 130/74 (92) 95 08/03/17 19:11 98.6 70 18 140/83 (102) 97 I/O 08/03/17 08/03/17 08/03/17 08/04/17 08/04/17 08/04/17 07:00 15:00 23:00 07:00 15:00 23:00 Intake Total 750 ml 1962 ml 100 ml 360 ml Output Total 400 ml Balance 750 ml 1962 ml 100 ml -40 ml Intake Oral 0 ml 100 ml 360 ml IV Total 100 ml 1962 ml Other 650 ml Output Urine Total 400 ml # Voids 5 1 5 4 # Bowel Movements 4 1 0 0 Result Diagram: 08/02/17 0601 08/04/17 1130 Objective Remarks Pt examined before symptoms began recurring: NAD lying in bed mild abd diffuse TTP, no rebound, soft A/P Assessment and Plan Discharged canceled due to recurring symptoms. Epigastric pain - was improving but then recurred agian w/ further vomiting ? ileus on CT vs SBO will make NPO except PO meds. Pt has had cholecystectomy in the past, EGD and colonoscopy just days ago not remarkable for cause of intermittent nausea/ vomiting; nonspecific gastritis on EGD would simply warrant staying off of NSAIDS. Consulting Gen surgery Phenergan for nausea, dc'ing zofran since it has constipative s/e in case ileus or SBO is truly present; may need NG tube Repeating UA w/ catheterized urine Neg for c. diff. Will provide IV morphine prn - will start Relistor daily to blunt constipating s /e of opiates Keeping in ICU for now HTN urgency - likely 2/2 n/v - prn labetaol - continue daily lisinopril Suspected GI bleed - no source found on scope hypokalemia - likely due to vomiting - still low today, continue 1/2 NS + KCL, replacing today w/ PO - repeat in am hepatic steatosis - likely 2/2 ETOH usage, avoid acetaminophen containing products for now - ordering hepatitis profile DTs - resolved, stopping librium -DVT prophylaxis with SCDs. Starting lovenox given active GI bleed ruled out. Aroldo Demarco MD Aug 04, 2017 19:18
[2017-08-04] MEDS ORDERED: HYDROmorphone HCL PF 1 MG/ML VIAL IV PUSH ONE ×2 (20:15)
[2017-08-04] MEDS: POTASSIUM CHLORIDE INJ 10 MEQ in SODIUM CHLOR 0.45% 1000 ML INJ 1,000 ML IV SCH ×4 (20:22)
[2017-08-04] MEDS: cloNIDine HCL 0.1 MG TAB PO PRN ×2 (20:22)
[2017-08-04] MEDS ORDERED: DIATRIZOATE MEGLUM/DIATRIZOATE SOD 9 ML CUP PO ONE ×2 (20:45)
[2017-08-04] MEDS ORDERED: ENOXAPARIN SODIUM 30 MG/0.3 ML SYRINGE SQ SCH ×2 (21:00)
[2017-08-04] MEDS ORDERED: MORPHINE SULFATE 4 MG/ML INJ IV PUSH PRN ×2 (22:00)
[2017-08-04] MEDS ORDERED: IOHEXOL 350 MG/ML 10 ML VIAL (for RAD DIAG) IVCONTRAST ONE ×2 (22:39)
--- NOTE | 2017-08-04 22:47 | RADRPT ---
EXAM DATE/TIME: 08/04/2017 22:28 [facility] COMPARISON: CT ABDOMEN & PELVIS W CONTRAST, August 03, 2017, 17:57. INDICATIONS : Abdominal pain. Colitis. IV CONTRAST: 75 cc Omnipaque 350 (iohexol) IV ORAL CONTRAST: Prescribed oral contrast ingested. RADIATION DOSE: 5.71 CTDIvol (mGy) MEDICAL HISTORY : Hypertension. SURGICAL HISTORY : None. ENCOUNTER: Subsequent ACUITY: 2 days PAIN SCALE: 9/10 LOCATION: abdomen. TECHNIQUE: Volumetric scanning of the abdomen and pelvis was performed. Using automated exposure control and ad justment of the mA and/or kV according to patient size, radiation dose was kept as low as reasonably achievable to obtain optimal diagnostic quality images. DICOM format image data is available electro nically for review and comparison. FINDINGS: LOWER LUNGS: There are tiny pleural effusions. LIVER: Homogeneous density without lesion. There is no dilation of the biliary tree. Status post cholecyste ctomy. There is mild hepatic steatosis again noted. Mild ascites is again noted along the anterior li ryan margin. SPLEEN: Normal size without lesion. PANCREAS: Within normal limits. KIDNEYS: Normal in size and shape. There is no mass, stone or hydronephrosis. ADRENAL GLANDS: Within normal limits. VASCULAR: There is no aortic aneurysm. BOWEL/MESENTERY: The stomach, small bowel, and colon demonstrate no acute abnormality. There is no free intraperitone al air or fluid. ABDOMINAL WALL: Within normal limits. RETROPERITONEUM: There is no lymphadenopathy. BLADDER: No wall thickening or mass. REPRODUCTIVE: Within normal limits. INGUINAL: There is no lymphadenopathy or hernia. MUSCULOSKELETAL: Within normal limits for patient age. CONCLUSION: 1. The bowel gas pattern remains unremarkable with no inflammatory change or obstruction. 2. Hepatic steatosis again noted. 3. The patient is status post cholecystectomy. 4. Minimal ascitic fluid and tiny pleural effusions. Dell Bowie MD on August 04, 2017 at 22:43 Board Certified Radiologist. This report was verified electronically.
[2017-08-04] MEDS ORDERED: MORPHINE SULFATE 2 MG/ML INJ IV PUSH PRN ×2 (23:15)
[2017-08-04] MEDS: SODIUM CHLORIDE 0.9% FLUSH 10 ML FLUSH IV FLUSH PRN ×2 (23:20)
--- NOTE | 2017-08-04 23:54 | PD.CONS ---
General Surgery Consult 51 yo WF with hypertension, headache, nausea and emesis. Consulted for nausea and emesis. Discussed with Dr. Barber; patient seen and examined at bedside. Abdomen essentially benign; minimal discomfort. CT shows no acute abnormality. Nothing to add; will see as needed. Thank you for this interesting consult. Dell Spence MD Aug 04, 2017 23:54
[2017-08-05] VITALS (12 sets, daily range): BP systolic 111–187; BP diastolic 66–98; PULSE 58–76; RESP 12–21; TEMP 97.2–98.9; O2SAT 94–98
[2017-08-05 00:24] LABS: BILIRUBIN, URINE NEG (NEG); BLOOD, URINE NEG (NEG); GLUCOSE,URINE NEG (NEG); KETONE, URINE NEG (NEG); NITRITE,URINE NEG (NEG); URINE LEUKOCYTE ESTERASE NEG (NEG)
[2017-08-05 00:34] LABS: MUCUS URINE OCC /lpf (OCC); SQUAMOUS EPITHELIAL CELL URINE 0-5 /hpf (0-5); URINE COLOR YELLOW (YELLW/STRAW)
[2017-08-05] MEDS ORDERED: MORPHINE SULFATE 8 MG/ML INJ IV PUSH PRN ×2 (04:19)
[2017-08-05] MEDS: ONDANSETRON HCL 4 MG/2 ML VIAL IV PUSH PRN ×2 (04:30)
[2017-08-05] MEDS: HEPARIN SODIUM - SQ 10,000 UNITS/ML VIAL SQ SCH ×2 (04:30)
[2017-08-05] MEDS: SODIUM CHLORIDE 0.9% FLUSH 10 ML FLUSH IV FLUSH PRN ×2 (04:32)
[2017-08-05 05:27] LABS: CHLORIDE 100 MEQ/L (98-107); SODIUM (NA) 136 MEQ/L (136-145)
[2017-08-05 05:30] LABS: CALCIUM 8.3 MG/DL (8.5-10.1)
[2017-08-05 05:31] LABS: ALBUMIN 2.7 GM/DL (3.4-5.0); BICARBONATE 29.6 MEQ/L (21.0-32.0); BLOOD UREA NITROGEN 3 MG/DL (7-18); GLUCOSE,RANDOM 100 MG/DL (74-106)
[2017-08-05 05:34] LABS: ALT (GPT) 27 U/L (10-53); AST (GOT) 49 U/L (15-37); CREATININE 0.33 MG/DL (0.50-1.00); GLOMERULAR FILTRATION RATE 208 ML/MIN (>89)
[2017-08-05 05:36] LABS: TOTAL BILIRUBIN ADULT 0.6 MG/DL (0.2-1.0); TOTAL PROTEIN 5.6 GM/DL (6.4-8.2)
[2017-08-05 05:37] LABS: ALKALINE PHOSPHATASE 106 U/L (45-117)
[2017-08-05] MEDS ORDERED: MORPHINE SULFATE 2 MG/ML INJ IV PUSH PRN ×2 (07:00)
--- NOTE | 2017-08-05 07:05 | HHI.PR ---
Subjective Subjective Notes Abdominal pain resolved Wants to eat and go home. Objective Vitals/I&O Vital Signs Date Time Temp Pulse Resp B/P (MAP) Pulse Ox O2 Delivery O2 Flow Rate FiO2 08/05/17 06:00 64 17 111/75 (87) 95 08/05/17 04:00 98.4 08/01/17 07:30 21 Labs Laboratory Tests Test 08/04/17 11:30 08/04/17 14:40 08/04/17 23:04 08/05/17 04:50 Blood Urea Nitrogen LESS THAN 3 3 Creatinine 0.50 0.33 Random Glucose 106 100 Calcium Level 8.6 8.3 Sodium Level 138 136 Potassium Level 3.0 3.1 Chloride Level 94 100 Carbon Dioxide Level 29.0 29.6 Anion Gap 8 6 Estimat Glomerular Filtration Rate 129 208 Total Bilirubin 0.7 0.6 Direct Bilirubin 0.3 Indirect Bilirubin 0.4 Aspartate Amino Transf (AST/SGOT) 70 49 Alanine Aminotransferase (ALT/SGPT) 31 27 Alkaline Phosphatase 115 106 Total Protein 5.9 5.6 Albumin 2.9 2.7 Vitamin B12 Level 925 Urine Color YELLOW Urine Turbidity CLEAR Urine pH 6.0 Urine Specific [place] 1.019 Urine Protein NEG Urine Glucose (UA) NEG Urine Ketones NEG Urine Occult Blood NEG Urine Nitrite NEG Urine Bilirubin NEG Urine Leukocyte Esterase NEG Urine Squamous Epithelial Cells 0-5 Urine Mucus OCC Microscopic Urinalysis Comment CULT NOT INDICATED Urine Opiates Screen NEG Urine Barbiturates Screen NEG Urine Amphetamines Screen NEG Urine Benzodiazepines Screen POS Urine Cocaine Screen NEG Urine Cannabinoids Screen NEG Abdomen: Non-distended, Non-tender A/P Assessment and Plan Abdominal pain with nausea and emesis; resolved. OK for regular diet OK for discharge when OK with med svc. Dell Spence MD Aug 05, 2017 07:05
[2017-08-05] MEDS: THIAMINE HCL 100 MG TAB PO SCH ×2 (08:21)
[2017-08-05] MEDS: SODIUM CHLORIDE 0.9% FLUSH 10 ML FLUSH IV FLUSH SCH ×2 (08:21)
[2017-08-05] MEDS: LISINOPRIL 20 MG TAB PO SCH ×2 (08:21)
[2017-08-05] MEDS ORDERED: POTASSIUM CHLORIDE 10 MEQ CONTROLLED RELEASE TAB PO ONE ×2 (08:45)
[2017-08-05] MEDS ORDERED: PANTOPRAZOLE SOD 40 MG DELAYED RELEASE TAB PO SCH ×2 (09:00)
[2017-08-05] MEDS: cloNIDine HCL 0.1 MG TAB PO PRN ×2 (09:47)
[2017-08-05] MEDS ORDERED: CLON.1 PO ×2 (09:50)
[2017-08-05] MEDS ORDERED: LISI-515 PO ×4 (09:50→11:03)
--- NOTE | 2017-08-05 09:53 | HHI.DS ---
Discharge Summary Admission Date Jul 28, 2017 at 06:44 Discharge Date: Aug 05, 2017 Admitting Diagnosis intractable abdominal pain, intractable nausea and vomiting (1) HTN (hypertension) ICD Code: I10 - Essential (primary) hypertension (2) Tobacco abuse ICD Code: Z72.0 - Tobacco use (3) Melena ICD Code: K92.1 - Melena (4) Intractable nausea and vomiting ICD Code: R11.2 - Nausea with vomiting, unspecified Status: Acute (5) Intractable abdominal pain ICD Code: R10.9 - Unspecified abdominal pain Status: Acute (6) Anemia ICD Code: D64.9 - Anemia, unspecified (7) Alcohol withdrawal delirium ICD Code: F10.231 - Alcohol dependence with withdrawal delirium (8) Gastritis ICD Code: K29.70 - Gastritis, unspecified, without bleeding (9) Alcohol abuse ICD Code: F10.10 - Alcohol abuse, uncomplicated Procedures EGD Colonoscopy Brief History - From Admission This is a pleasant 51-year-old female with past medical history of hypertension and previous colitis who 4 days ago started to develop epigastric pain associated with diarrhea and tarry black stools and intractable nausea and vomiting. The patient states she has cut back from drinking and typically drinks 2-3 glasses of wine 4 times a week. She does not take NSAIDs. The pain is constant and is severe. No provocative or alleviating factors. The patient has been unable to keep anything by mouth down. The patient does not have insurance and has been off all medications. The patient states that years ago she underwent a colonoscopy which showed colitis. She also had an EGD which was abnormal but she cannot recall what the diagnosis was for that. The patient has been vomiting and states that she has small flecks of red blood in the vomitus. The patient has been having hot and cold chills She has had a cholecystectomy in the past. CBC/BMP: 08/02/17 0601 08/05/17 0450 Significant Findings Laboratory Tests Test 08/02/17 12:06 08/02/17 19:20 08/03/17 05:30 08/04/17 11:30 Blood Urea Nitrogen 4 MG/DL (7-18) LESS THAN 3 MG/DL (7-18) Creatinine 0.42 MG/DL (0.50-1.00) Potassium Level 3.0 MEQ/L (3.5-5.1) 3.0 MEQ/L (3.5-5.1) Total Bilirubin 1.1 MG/DL (0.2-1.0) Direct Bilirubin 0.4 MG/DL (0.0-0.2) 0.3 MG/DL (0.0-0.2) Aspartate Amino Transf (AST/SGOT) 74 U/L (15-37) 70 U/L (15-37) Alkaline Phosphatase 127 U/L (45-117) Albumin 3.2 GM/DL (3.4-5.0) 2.9 GM/DL (3.4-5.0) Chloride Level 94 MEQ/L (98-107) Total Protein 5.9 GM/DL (6.4-8.2) Test 08/04/17 14:40 08/04/17 23:04 08/05/17 04:50 Urine Benzodiazepines Screen POS (NEG) Blood Urea Nitrogen 3 MG/DL (7-18) Creatinine 0.33 MG/DL (0.50-1.00) Total Protein 5.6 GM/DL (6.4-8.2) Albumin 2.7 GM/DL (3.4-5.0) Calcium Level 8.3 MG/DL (8.5-10.1) Aspartate Amino Transf (AST/SGOT) 49 U/L (15-37) Potassium Level 3.1 MEQ/L (3.5-5.1) PE at Discharge GENERAL: Well-nourished, well-developed lean pleasant female patient. SKIN: Warm and dry. HEAD: Normocephalic. EYES: No scleral icterus. No injection or drainage. NECK: Supple, trachea midline. No JVD or lymphadenopathy. CARDIOVASCULAR: Regular rate and rhythm without murmurs, gallops, or rubs. RESPIRATORY: Breath sounds equal bilaterally. No accessory muscle use. GASTROINTESTINAL: Abdomen soft, non-tender, nondistended. EXTREMITIES: No cyanosis, or edema. NEUROLOGICAL: Awake, alert, and oriented x 3. Non-focal. Hospital Course The patient was admitted to the hospital. Hemoglobin remained stable. Gastroenterology was consulted. The patient underwent colonoscopy on August 03 showing a sessile polyp in the hepatic flexure 8 mm which was taken out via hot snare polypectomy, polyp in the rectum which was biopsied, internal hemorrhoids and external hemorrhoids. The patient continued to have epigastric pain and so underwent an EGD showing gastritis and esophagitis, biopsies were taken. The patient also had issues with her blood pressures being elevated. The patient was counseled on alcohol cessation. She continued to have abdominal pain, general surgery was consulted and did not see any acute surgical issues. [address] scans were negative. C. difficile colitis was negative. Patient was also treated for mild alcohol withdrawal. Patient now is tolerating a regular diet. Her abdominal pain is resolved. Blood pressure is improved this morning. She will be discharged home on lisinopril and clonidine as needed as well as an H2 williams. She is to follow-up with gastroenterology within 2 weeks. Patient was advised again on alcohol cessation and avoiding NSAIDs. Pt Condition on Discharge: Stable Discharge Disposition: Discharge Home Discharge Time: > 30 minutes Discharge Instructions DIET: Follow Instructions for: Heart Healthy Diet, Clear Liquid Diet, Gastroesophageal Reflux Speech Therapy-Diet Recommends: Regular, Other Additional Diet Instructions: . Activities you can perform: Regular-No Restrictions Follow up Referrals: Gastroenterology - 2 Weeks @ [facility] with Laya López MD PCP Follow-up - 1 Week New Medications: Omeprazole (Omeprazole) 20 Mg Tab 20 MG PO DAILY for acid reflux, #30 TAB 0 Refills Potassium Chloride ER (Klor-Con 10) 10 Meq Tab 10 MEQ PO DAILY for Electrolyte Replacement, #30 TAB 0 Refills Promethazine (Promethazine) 12.5 Mg Tab 12.5 MG PO Q6H PRN for NAUSEA OR VOMITING, #30 TAB 0 Refills Clonidine (Catapres) 0.1 Mg Tab 0.1 MG PO Q6H PRN for SYS BP GREATER THAN 160 MMHG, #30 TAB Continued Medications: Lisinopril (Lisinopril) 20 Mg Tab 20 MG PO BID for Blood Pressure Management, #3060 TAB 0 Refills (This prescription has been renewed) Ondansetron Odt (Zofran Odt) 4 Mg Tab 4 MG SL Q6HR PRN for Nausea/Vomiting, #10 TAB 0 Refills Discontinued Medications: Ranitidine (Zantac) 150 Mg Tab 150 MG PO BID for Reduce Stomach Acid, #20 TAB 0 Refills Dayanna Huerta MD Aug 05, 2017 09:53
[2017-08-05 14:42] LABS: HEPATITIS A AB IGM NEGATIVE (NEGATIVE); HEPATITIS B SURFACE ANTIGEN NEGATIVE (NEGATIVE); HEPATITIS C AB IgG REACTIVE (NEGATIVE)
== END 2017-08-05 11:10 | disposition home or self-care (01) | DRG 392 ==
LOC: PHED 04:18 → PHEDA 06:44 → PH3B 11:10 → INTOOBSV 11:56 → OBSVTOIN 11:56 → PHICU 07-30 18:24 → PH3B 08-01 12:03 → PHICU 08-03 18:59
PROVIDERS: ADMIT Family Medicine; ATTEND Family Medicine
PROC: 0DB38ZX Excision of Lower Esophagus, Via Natural or Artificial Opening Endoscopic, Diagnostic (ICD-10-PCS; 2017-08-03)
PROC: 0DBL8ZX Excision of Transverse Colon, Via Natural or Artificial Opening Endoscopic, Diagnostic (ICD-10-PCS; 2017-08-03)
PROC: 0DBP8ZX Excision of Rectum, Via Natural or Artificial Opening Endoscopic, Diagnostic (ICD-10-PCS; 2017-08-03)
PROC: 0DB98ZX Excision of Duodenum, Via Natural or Artificial Opening Endoscopic, Diagnostic (ICD-10-PCS; principal; 2017-08-03 07:23)
PROC: 0DB68ZX Excision of Stomach, Via Natural or Artificial Opening Endoscopic, Diagnostic (ICD-10-PCS; 2017-08-03 07:23)
DX: K20.9 Esophagitis, unspecified (principal); F10.231 Alcohol dependence with withdrawal delirium; K76.0 Fatty (change of) liver, not elsewhere classified; E87.1 Hypo-osmolality and hyponatremia; K29.70 Gastritis, unspecified, without bleeding; I10 Essential (primary) hypertension; K62.1 Rectal polyp; D12.3 Benign neoplasm of transverse colon; K64.4 Residual hemorrhoidal skin tags; K64.8 Other hemorrhoids; F17.210 Nicotine dependence, cigarettes, uncomplicated; K44.9 Diaphragmatic hernia without obstruction or gangrene; E87.6 Hypokalemia; I16.0 Hypertensive urgency
CPT/HCPCS: 74020; 74177; 80048; 80053; 80074; 80076; 80307; 81001; 82550; 82607; 83690; 83735; 84132; 84484; 85025; 85610; 85730; 87493; 88305; 88312; 93005; 96361; 96372; 96374; 96375; 96376; J1170; C9113; J0360; J0744; J1644; J1650; J1885; J2060; J2212; J2270; J2405; J2550; J2765; J3411; J3480; J7030; J7120; Q9963; Q9967

== ENCOUNTER 2017-12-02 05:59 | Inpatient (IN) | payer OTHER ==
[2017-12-02] VITALS (15 sets, daily range): BP systolic 125–216; BP diastolic 69–124; PULSE 69–120; RESP 16–20; TEMP 97.6–99.4; O2SAT 95–99
[~2017-12-02] VITALS: Ht 172.7 cm; Wt 55.7 kg
[~2017-12-02 05:59] MED LIST changes: +CLON.1 PO; +KLOR10TA PO; +LISI-515 PO; -NORC5TAB PO; +OMEP20TA93 PO; +PROM12.54 PO; -PROM25TA10 PO; -ZANT150T2 PO; -ZOFR4TAB PO
[2017-12-02 06:30] LABS: BILIRUBIN, URINE MOD (NEG); BLOOD, URINE NEG (NEG); GLUCOSE,URINE NEG (NEG); KETONE, URINE 40 mg/dL (NEG); NITRITE,URINE NEG (NEG); URINE LEUKOCYTE ESTERASE NEG (NEG)
[2017-12-02 06:37] LABS: CHLORIDE 91 MEQ/L (98-107); SODIUM (NA) 132 MEQ/L (136-145)
[2017-12-02 06:40] LABS: CALCIUM 9.7 MG/DL (8.5-10.1); URINE COLOR ORANGE (YELLW/STRAW)
[2017-12-02 06:41] LABS: ALBUMIN 4.5 GM/DL (3.4-5.0); AMORPHOUS SEDIMENT, URINE MOD; AUTOMATED NEUTROPHIL # 6.4 TH/MM3 (1.8-7.7); BACTERIA, URINE OCC /hpf; BASOPHIL # 0.1 TH/MM3 (0-0.2); BASOPHIL % 1.6 % (0.0-2.0); BICARBONATE 29.9 MEQ/L (21.0-32.0); BLOOD UREA NITROGEN 12 MG/DL (7-18); EOSINOPHIL % 0.1 % (0.0-4.0); GLUCOSE,RANDOM 144 MG/DL (74-106); HEMATOCRIT 50.6 % (35.0-46.0); HEMOGLOBIN 16.9 GM/DL (11.6-15.3); LYMPH % 7.1 % (9.0-44.0); LYMPHOCYTE # 0.5 TH/MM3 (1.0-4.8); MEAN CELL VOLUME 104.8 FL (80.0-100.0); MEAN CORPUSCULAR HGB CONC 33.4 % (32.0-36.0); MEAN PLATELET VOLUME 8.1 FL (7.0-11.0); MONO % 4.5 % (0.0-8.0); MONOCYTE # 0.3 TH/MM3 (0-0.9); NEUT % 86.7 % (16.0-70.0); PLATELET COUNT 238 TH/MM3 (150-450); RBC, URINE 0-3 /hpf (0-3); RED BLOOD COUNT 4.82 MIL/MM3 (4.00-5.30); RED CELL DISTRIBUTION WIDTH 14.3 % (11.6-17.2); WBC, URINE 0-2 /hpf (0-5); WHITE BLOOD COUNT 7.3 TH/MM3 (4.0-11.0)
[2017-12-02 06:42] LABS: HYALINE CAST, URINE 0-2 /lpf (RARE)
[2017-12-02 06:43] LABS: ALT (GPT) 33 U/L (10-53); AST (GOT) 77 U/L (15-37)
[2017-12-02 06:44] LABS: CREATININE 0.79 MG/DL (0.50-1.00); GLOMERULAR FILTRATION RATE 76 ML/MIN (>89)
[2017-12-02 06:45] LABS: TOTAL BILIRUBIN ADULT 1.7 MG/DL (0.2-1.0); TOTAL PROTEIN 9.4 GM/DL (6.4-8.2)
[2017-12-02 06:46] LABS: ALKALINE PHOSPHATASE 235 U/L (45-117)
[2017-12-02] MEDS ORDERED: SODIUM CHLOR 0.9% 1000 ML INJ 1,000 ML IV SCH ×2 (06:54→08:51)
[2017-12-02] MEDS ORDERED: ALUMINUM/MAGNESIUM/SIMETH 30 ML CUP PO ONE (07:00)
[2017-12-02] MEDS ORDERED: MORPHINE SULFATE 4 MG/ML INJ IV PUSH ONE ×3 (07:00→10:00)
[2017-12-02] MEDS ORDERED: PANTOPRAZOLE SODIUM 40 MG VIAL IVP ONE (07:00)
[2017-12-02] MEDS ORDERED: FAMOTIDINE 20 MG/2 ML VIAL IV PUSH ONE (07:00)
[2017-12-02] MEDS ORDERED: LIDOCAINE VISCOUS 2% SOLN 15 ML UDC PO ONE (07:00)
[2017-12-02] MEDS ORDERED: ONDANSETRON HCL 4 MG/2 ML VIAL IVP ONE (07:00)
[2017-12-02] MEDS ORDERED: SODIUM CHLORIDE 0.9% FLUSH 10 ML FLUSH IV FLUSH PRN ×3 (07:00→17:30)
--- NOTE | 2017-12-02 07:03 | PD ---
HPI Chief Complaint: GI Complaint Time Seen by Provider: 06:54 Travel History International Travel<30 days: No Contact w/Intl Traveler<30days: No Traveled to known affect area: No History of Present Illness HPI The patient is a 52-year-old female that complains of midline epigastric pain, diarrhea and vomiting for the past 2 days. She does feel dehydrated. She denies any blood in the vomitus or stool. She denies any fever. Her pain as a burning pain and a 10/10. PFSH Past Medical History Arthritis: No Asthma: Yes Autoimmune Disease: No Anxiety: Yes Depression: Yes Heart Rhythm Problems: No Cancer: No Cardiovascular Problems: Yes High Cholesterol: No Chest Pain: No Congestive Heart Failure: No Cirrhosis: No COPD: No Diminished Hearing: No Endocrine: No Gastrointestinal Disorders: Yes (Chrons and colitis ) GERD: No Genitourinary: No Hiatal Hernia: No Hypertension: Yes Immune Disorder: No Musculoskeletal: Yes Neurologic: No Psychiatric: Yes Reproductive: No Respiratory: Yes Immunizations Current: No Myocardial Infarction: Yes Radiation Therapy: No Sickle Cell Disease: No Sleep Apnea: No Ulcer: No Tetanus Vaccination: > 5 Years Influenza Vaccination: No ?: Not LMP: menopause Menopausal: Yes : 0 Para: 0 Past Surgical History Abdominal Surgery: No AICD: No Arteriovenous Shunt: No Cardiac Surgery: Yes Cholecystectomy: Yes Coronary Stent: Yes Ear Surgery: No Endocrine Surgery: No Eye Surgery: No Genitourinary Surgery: No Gynecologic Surgery: No Insulin Pump: No Joint Replacement: No Oral Surgery: No Pacemaker: No Thoracic Surgery: No Other Surgery: Yes (STENT) Social History Alcohol Use: Yes (4-5 vodka DRINKS DAILY) Tobacco Use: Yes (1 PPD) Substance Use: No Allergies-Medications (Allergen,Severity, Reaction): Coded Allergies: No Known Allergies (Unverified Allergy, Unknown, 08/03/17) Reported Meds & Prescriptions Reported Meds & Active Scripts Active Lisinopril 20 Mg Tab 20 Mg PO BID Catapres (Clonidine) 0.1 Mg Tab 0.1 Mg PO Q6H PRN Promethazine (Promethazine HCl) 12.5 Mg Tab 12.5 Mg PO Q6H PRN Omeprazole 20 Mg Tab 20 Mg PO DAILY Klor-Con 10 (Potassium Chloride) 10 Meq Tab 10 Meq PO DAILY Zofran Odt (Ondansetron Odt) 4 Mg Tab 4 Mg SL Q6HR PRN Review of Systems Except as stated in HPI: all other systems reviewed are Neg Physical Exam Narrative GENERAL: The patient is alert, oriented 3 in moderate to severe distress with her midline epigastric discomfort. Her vital signs show blood pressure 195/104 but are otherwise normal. SKIN: Focused skin assessment warm/dry. HEAD: Atraumatic. Normocephalic. EYES: Pupils equal and round. No scleral icterus. No injection or drainage. ENT: No nasal bleeding or discharge. Mucous membranes pink and moist. NECK: Trachea midline. No JVD. CARDIOVASCULAR: Regular rate and rhythm. No murmur appreciated. RESPIRATORY: No accessory muscle use. Clear to auscultation. Breath sounds equal bilaterally. GASTROINTESTINAL: Abdomen soft, with tenderness to direct palpation in the midline epigastrium, no guarding or rebound is present in the abdomen is nondistended. Hepatic and splenic margins not palpable. MUSCULOSKELETAL: No obvious deformities. No clubbing. No cyanosis. No edema. NEUROLOGICAL: Awake and alert. No obvious cranial nerve deficits. Motor grossly within normal limits. Normal speech. PSYCHIATRIC: Appropriate mood and affect; insight and judgment normal. Data Data Last Documented VS Vital Signs Date Time Temp Pulse Resp B/P (MAP) Pulse Ox O2 Delivery O2 Flow Rate FiO2 12/02/17 06:26 99 Room Air 12/02/17 06:03 98.4 85 18 Orders Orders Complete Blood Count With Diff (12/02/17 06:13) Comprehensive Metabolic Panel (12/02/17 06:13) Urinalysis - C+S If Indicated (12/02/17 06:13) Iv Access Insert/Monitor (12/02/17 06:13) Oximetry (12/02/17 06:13) Lipase (12/02/17 06:13) Lipase (12/02/17 06:54) Ct Abd/Pel W Iv Contrast(Rout) (12/02/17 06:54) Ecg Monitoring (12/02/17 06:54) Morphine Inj (Morphine Inj) (12/02/17 07:00) Ondansetron Inj (Zofran Inj) (12/02/17 07:00) Pantoprazole Inj (Protonix Inj) (12/02/17 07:00) Sodium Chlor 0.9% 1000 Ml Inj (Ns 1000 M (12/02/17 06:54) Sodium Chloride 0.9% Flush (Ns Flush) (12/02/17 07:00) Famotidine Inj (Pepcid Inj) (12/02/17 07:00) Al-Mag Hy-Si 40-40-4 Mg/Ml Liq (Mag-Al P (12/02/17 07:00) Lidocaine 2% Viscous (Xylocaine 2% Visco (12/02/17 07:00) Labs Laboratory Tests Test 12/02/17 06:18 White Blood Count 7.3 TH/MM3 Red Blood Count 4.82 MIL/MM3 Hemoglobin 16.9 GM/DL Hematocrit 50.6 % Mean Corpuscular Volume 104.8 FL Mean Corpuscular Hemoglobin 35.0 PG Mean Corpuscular Hemoglobin Concent 33.4 % Red Cell Distribution Width 14.3 % Platelet Count 238 TH/MM3 Mean Platelet Volume 8.1 FL Neutrophils (%) (Auto) 86.7 % Lymphocytes (%) (Auto) 7.1 % Monocytes (%) (Auto) 4.5 % Eosinophils (%) (Auto) 0.1 % Basophils (%) (Auto) 1.6 % Neutrophils # (Auto) 6.4 TH/MM3 Lymphocytes # (Auto) 0.5 TH/MM3 Monocytes # (Auto) 0.3 TH/MM3 Eosinophils # (Auto) 0.0 TH/MM3 Basophils # (Auto) 0.1 TH/MM3 CBC Comment DIFF FINAL Differential Comment Urine Collection Type CLEAN CATCH Urine Color ORANGE Urine Turbidity SLIGHT Urine pH 7.0 Urine Specific [place] 1.024 Urine Protein 100 mg/dL Urine Glucose (UA) NEG mg/dL Urine Ketones 40 mg/dL Urine Occult Blood NEG Urine Nitrite NEG Urine Bilirubin MOD Urine Leukocyte Esterase NEG Urine RBC 0-3 /hpf Urine WBC 0-2 /hpf Urine Squamous Epithelial Cells 6-8 /hpf Urine Amorphous Sediment MOD Urine Bacteria OCC /hpf Urine Hyaline Casts 0-2 /lpf Microscopic Urinalysis Comment CULT NOT INDICATED Urine Collection Time 0618 Blood Urea Nitrogen 12 MG/DL Creatinine 0.79 MG/DL Random Glucose 144 MG/DL Total Protein 9.4 GM/DL Albumin 4.5 GM/DL Calcium Level 9.7 MG/DL Alkaline Phosphatase 235 U/L Aspartate Amino Transf (AST/SGOT) 77 U/L Alanine Aminotransferase (ALT/SGPT) 33 U/L Total Bilirubin 1.7 MG/DL Sodium Level 132 MEQ/L Potassium Level 3.6 MEQ/L Chloride Level 91 MEQ/L Carbon Dioxide Level 29.9 MEQ/L Anion Gap 11 MEQ/L Estimat Glomerular Filtration Rate 76 ML/MIN Lipase 260 U/L MDM Medical Decision Making Medical Screen Exam Complete: Yes Emergency Medical Condition: Yes Medical Record Reviewed: Yes Differential Diagnosis GERD, ulcer pain, gastritis, gastroenteritis, dehydration, electrolyte disorder , colitis, urinary tract infection, pancreatitis, anemia, cholecystitis, cholelithiasis with colic Narrative Course It is now 0700 and the patient is transferred to Dr. Rowan. Nelson Cooley MD Dec 02, 2017 07:03
[2017-12-02] MEDS ORDERED: DIATRIZOATE MEGLUM/DIATRIZOATE SOD 9 ML CUP ONE (07:14)
--- NOTE | 2017-12-02 07:34 | PD ---
Physical Exam Date Seen by Provider: Dec 02, 2017 Time Seen by Provider: 07:[address] Cooley's documentation. Briefly this is a 52-year-old female who presents for abdominal pain. She has had 2 days of nausea and nonbilious emesis and loose stool. No melena or hematochezia. She complains of epigastric abdominal pain. No chest pain or shortness of breath. 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 She continues to drink daily. No associated fever, chills. Data Data Last Documented VS Vital Signs Date Time Temp Pulse Resp B/P (MAP) Pulse Ox O2 Delivery O2 Flow Rate FiO2 12/02/17 10:38 118 16 167/89 (115) 95 Room Air 12/02/17 07:20 98.7 Orders Orders Complete Blood Count With Diff (12/02/17 06:13) Comprehensive Metabolic Panel (12/02/17 06:13) Urinalysis - C+S If Indicated (12/02/17 06:13) Iv Access Insert/Monitor (12/02/17 06:13) Oximetry (12/02/17 06:13) Lipase (12/02/17 06:13) Ct Abd/Pel W Iv Contrast(Rout) (12/02/17 06:54) Ecg Monitoring (12/02/17 06:54) Morphine Inj (Morphine Inj) (12/02/17 07:00) Ondansetron Inj (Zofran Inj) (12/02/17 07:00) Pantoprazole Inj (Protonix Inj) (12/02/17 07:00) Sodium Chlor 0.9% 1000 Ml Inj (Ns 1000 M (12/02/17 06:54) Sodium Chloride 0.9% Flush (Ns Flush) (12/02/17 07:00) Famotidine Inj (Pepcid Inj) (12/02/17 07:00) Al-Mag Hy-Si 40-40-4 Mg/Ml Liq (Mag-Al P (12/02/17 07:00) Lidocaine 2% Viscous (Xylocaine 2% Visco (12/02/17 07:00) Oral Contrast - Adult (12/02/17 07:04) Diatrizoate Liq ( Gastroview Liq) (12/02/17 07:14) Hydralazine Inj (Apresoline Inj) (12/02/17 07:45) Promethazine Inj (Phenergan Inj) (12/02/17 07:45) Morphine Inj (Morphine Inj) (12/02/17 08:15) Iohexol 350 Inj (Omnipaque 350 Inj) (12/02/17 08:34) Sodium Chlor 0.9% 1000 Ml Inj (Ns 1000 M (12/02/17 08:51) Hydralazine Inj (Apresoline Inj) (12/02/17 09:15) Morphine Inj (Morphine Inj) (12/02/17 10:00) Electrocardiogram (12/02/17 09:56) Lorazepam Inj (Ativan Inj) (12/02/17 10:00) Admit To Inpatient (12/02/17 ) Vital Signs (Adult) NOAH.Q4H (12/02/17 10:55) Activity Oob With Assistance (12/02/17 10:55) Glass Glazier / Telemetry NOAH.Q8H (12/02/17 10:55) Inpatient Certification (12/02/17 ) Bedside Glucose NOAH.CSUGAR (12/02/17 10:55) Intake + Output NOAH.QSHIFT (12/02/17 10:55) Alcohol Withdrawal Asmt-Ciwa Q4HX18 (12/02/17 10:55) ^ Seizure Precautions (12/02/17 10:55) Sodium Chloride 0.9% Flush (Ns Flush) (12/02/17 11:00) Sodium Chloride 0.9% Flush (Ns Flush) (12/02/17 21:00) Thiamine Inj (Thiamine Inj) (12/02/17 11:00) Consult Cm-Etoh Abuse Dc Plan (12/02/17 ) Flumazenil Inj (Romazicon Inj) (12/02/17 11:00) Lorazepam (Ativan) (12/02/17 11:00) Lorazepam Inj (Ativan Inj) (12/02/17 11:00) Lorazepam (Ativan) (12/02/17 11:00) Lorazepam Inj (Ativan Inj) (12/02/17 11:00) Lorazepam Inj (Ativan Inj) (12/02/17 11:00) Lorazepam Inj (Ativan Inj) (12/02/17 11:00) Admit Order (Ed Use Only) (12/02/17 11:05) Labs Laboratory Tests Test 12/02/17 06:18 White Blood Count 7.3 TH/MM3 Red Blood Count 4.82 MIL/MM3 Hemoglobin 16.9 GM/DL Hematocrit 50.6 % Mean Corpuscular Volume 104.8 FL Mean Corpuscular Hemoglobin 35.0 PG Mean Corpuscular Hemoglobin Concent 33.4 % Red Cell Distribution Width 14.3 % Platelet Count 238 TH/MM3 Mean Platelet Volume 8.1 FL Neutrophils (%) (Auto) 86.7 % Lymphocytes (%) (Auto) 7.1 % Monocytes (%) (Auto) 4.5 % Eosinophils (%) (Auto) 0.1 % Basophils (%) (Auto) 1.6 % Neutrophils # (Auto) 6.4 TH/MM3 Lymphocytes # (Auto) 0.5 TH/MM3 Monocytes # (Auto) 0.3 TH/MM3 Eosinophils # (Auto) 0.0 TH/MM3 Basophils # (Auto) 0.1 TH/MM3 CBC Comment DIFF FINAL Differential Comment Urine Collection Type CLEAN CATCH Urine Color ORANGE Urine Turbidity SLIGHT Urine pH 7.0 Urine Specific [place] 1.024 Urine Protein 100 mg/dL Urine Glucose (UA) NEG mg/dL Urine Ketones 40 mg/dL Urine Occult Blood NEG Urine Nitrite NEG Urine Bilirubin MOD Urine Leukocyte Esterase NEG Urine RBC 0-3 /hpf Urine WBC 0-2 /hpf Urine Squamous Epithelial Cells 6-8 /hpf Urine Amorphous Sediment MOD Urine Bacteria OCC /hpf Urine Hyaline Casts 0-2 /lpf Microscopic Urinalysis Comment CULT NOT INDICATED Urine Collection Time 0618 Blood Urea Nitrogen 12 MG/DL Creatinine 0.79 MG/DL Random Glucose 144 MG/DL Total Protein 9.4 GM/DL Albumin 4.5 GM/DL Calcium Level 9.7 MG/DL Alkaline Phosphatase 235 U/L Aspartate Amino Transf (AST/SGOT) 77 U/L Alanine Aminotransferase (ALT/SGPT) 33 U/L Total Bilirubin 1.7 MG/DL Sodium Level 132 MEQ/L Potassium Level 3.6 MEQ/L Chloride Level 91 MEQ/L Carbon Dioxide Level 29.9 MEQ/L Anion Gap 11 MEQ/L Estimat Glomerular Filtration Rate 76 ML/MIN Lipase 260 U/L [facility] Medical Record Reviewed: Yes Supervised Visit with ABBY: No Interpretation(s) EKG shows sinus tachycardia. Rate 116. No STEMI Last 24 hours Impressions Abdomen/Pelvis CT 12/02/17 0654 Signed Impressions: Service Date/Time: Saturday, December 02, 2017 08:27 - CONCLUSION: Mild prominence of common duct common nonspecific post cholecystectomy Marked fatty replacement of the liver No other etiology for the patient's abdominal pain. Perico Mckeon MD FACR Laboratory Tests Test 12/02/17 06:18 White Blood Count 7.3 TH/MM3 Red Blood Count 4.82 MIL/MM3 Hemoglobin 16.9 GM/DL Hematocrit 50.6 % Mean Corpuscular Volume 104.8 FL Mean Corpuscular Hemoglobin 35.0 PG Mean Corpuscular Hemoglobin Concent 33.4 % Red Cell Distribution Width 14.3 % Platelet Count 238 TH/MM3 Mean Platelet Volume 8.1 FL Neutrophils (%) (Auto) 86.7 % Lymphocytes (%) (Auto) 7.1 % Monocytes (%) (Auto) 4.5 % Eosinophils (%) (Auto) 0.1 % Basophils (%) (Auto) 1.6 % Neutrophils # (Auto) 6.4 TH/MM3 Lymphocytes # (Auto) 0.5 TH/MM3 Monocytes # (Auto) 0.3 TH/MM3 Eosinophils # (Auto) 0.0 TH/MM3 Basophils # (Auto) 0.1 TH/MM3 CBC Comment DIFF FINAL Differential Comment Urine Collection Type CLEAN CATCH Urine Color ORANGE Urine Turbidity SLIGHT Urine pH 7.0 Urine Specific [place] 1.024 Urine Protein 100 mg/dL Urine Glucose (UA) NEG mg/dL Urine Ketones 40 mg/dL Urine Occult Blood NEG Urine Nitrite NEG Urine Bilirubin MOD Urine Leukocyte Esterase NEG Urine RBC 0-3 /hpf Urine WBC 0-2 /hpf Urine Squamous Epithelial Cells 6-8 /hpf Urine Amorphous Sediment MOD Urine Bacteria OCC /hpf Urine Hyaline Casts 0-2 /lpf Microscopic Urinalysis Comment CULT NOT INDICATED Urine Collection Time 0618 Blood Urea Nitrogen 12 MG/DL Creatinine 0.79 MG/DL Random Glucose 144 MG/DL Total Protein 9.4 GM/DL Albumin 4.5 GM/DL Calcium Level 9.7 MG/DL Alkaline Phosphatase 235 U/L Aspartate Amino Transf (AST/SGOT) 77 U/L Alanine Aminotransferase (ALT/SGPT) 33 U/L Total Bilirubin 1.7 MG/DL Sodium Level 132 MEQ/L Potassium Level 3.6 MEQ/L Chloride Level 91 MEQ/L Carbon Dioxide Level 29.9 MEQ/L Anion Gap 11 MEQ/L Estimat Glomerular Filtration Rate 76 ML/MIN Lipase 260 U/L Narrative Course The patient was signed out to me at [address] Cooley had reviewed the labs with the patient. Labs, imaging were performed. Patient was given 2 L of normal saline, multiple doses of hydralazine, morphine, antinausea medication. She continues to have pain, nausea and tachycardia. Her blood pressure improved after the 2 doses of hydralazine. The patient's last drink of alcohol was yesterday and she is a heavy drinker. She was given a dose of Ativan as well to cover alcohol withdrawal. Plan for admission for further evaluation and care. Diagnosis Primary Impression: Gastritis Qualified Codes: K29.70 - Gastritis, unspecified, without bleeding Additional Impressions: Intractable abdominal pain Accelerated hypertension Admitting Information Admitting Physician Requests: Hermila Rodarte MD Dec 02, 2017 07:34
[2017-12-02] MEDS ORDERED: hydrALAZINE HCL 20 MG/ML VIAL IV PUSH ONE ×2 (07:45→09:15)
[2017-12-02] MEDS ORDERED: PROMETHAZINE INJ 25 MG/ML VIAL IM ONE (07:45)
[2017-12-02] MEDS ORDERED: IOHEXOL 350 MG/ML 10 ML VIAL (for RAD DIAG) IVCONTRAST ONE (08:34)
--- NOTE | 2017-12-02 08:42 | RADRPT ---
EXAM DATE/TIME: 12/02/2017 08:27 [place] COMPARISON: CT ABDOMEN & PELVIS W CONTRAST, August 04, 2017, 22:28. INDICATIONS : Epigastric pain. Nausea, vomiting and diarrhea. IV CONTRAST: 85 cc Omnipaque 350 (iohexol) IV ORAL CONTRAST: No oral contrast ingested. RADIATION DOSE: 4.74 CTDIvol (mGy) MEDICAL HISTORY : Crohn's disease. Myocardial infarction. Hypertension.Colitis. SURGICAL HISTORY : Cholecystectomy. Coronary artery stent. ENCOUNTER: Initial ACUITY: 2 days PAIN SCALE: 10/10 LOCATION: Epigastric TECHNIQUE: Volumetric scanning of the abdomen and pelvis was performed. Using automated exposure control and ad justment of the mA and/or kV according to patient size, radiation dose was kept as low as reasonably achievable to obtain optimal diagnostic quality images. DICOM format image data is available electro nically for review and comparison. FINDINGS: The visualized lungs are clear. There is no pericardial effusion Marked fatty replacement in the liver Gallbladder surgically absent Mild dilatation of common duct into the pancreas measuring 1 cm. Spleen is unremarkable The right and left adrenal glands appear normal Right and left kidneys unremarkable The region of the cecum and terminal ileum unremarkable There is no ascites or retrotracheal adenopathy Pelvic contents are unremarkable. Nonspecific bowel gas pattern. Abdominal wall intact Bone windows reveal only degenerative changes in the lower lumbar spine. CONCLUSION: Mild prominence of common duct common nonspecific post cholecystectomy Marked fatty replacement of the liver No other etiology for the patient's abdominal pain. Perico Mckeon MD FACR on December 02, 2017 at 8:38 Board Certified Radiologist. This report was verified electronically.
[2017-12-02] MEDS ORDERED: LORazepam 2 MG/ML VIAL IV PUSH ONE (10:00)
[2017-12-02] MEDS ORDERED: FLUMAZENIL 0.5 MG/5 ML VIAL IV PUSH PRN (11:00)
[2017-12-02] MEDS ORDERED: LORazepam 2 MG/ML VIAL IV PUSH PRN ×5 (11:00→17:30)
[2017-12-02] MEDS ORDERED: LORazepam 2 MG TAB PO PRN (11:00)
[2017-12-02] MEDS ORDERED: LORazepam 1 MG TAB PO PRN (11:00)
[2017-12-02] MEDS ORDERED: THIAMINE INJ 100 MG in SODIUM CHLORIDE 0.9% INJ 100 ML IV SCH (13:00)
[2017-12-02] MEDS: SODIUM CHLOR 0.9% 1000 ML INJ 1,000 ML IV SCH (17:29)
[2017-12-02] MEDS ORDERED: NALOXONE HCL 0.4 MG/ML AMP IV PUSH PRN (17:30)
[2017-12-02] MEDS ORDERED: SENNOSIDES 8.6 MG TAB PO PRN (17:30)
[2017-12-02] MEDS ORDERED: MAGNESIUM HYDROXIDE SUSP 30 ML CUP PO PRN (17:30)
[2017-12-02] MEDS ORDERED: LACTULOSE SYRUP 20 GM/30 ML CUP PO PRN (17:30)
[2017-12-02] MEDS ORDERED: BISACODYL 10 MG SUPP RECTAL PRN (17:30)
[2017-12-02] MEDS ORDERED: ACETAMINOPHEN 325 MG TAB PO PRN (17:30)
[2017-12-02] MEDS ORDERED: ENALAPRILAT 1.25 MG/ML VIAL IV PUSH PRN (17:45)
--- NOTE | 2017-12-02 18:09 | HHI.HP ---
[facility] Service [place] [facility] Primary Care Physician No Primary Care Physician Admission Diagnosis Gastritis, Intractable Abdominal Pain, Accelerated Hypertension Diagnoses: (1) Abdominal pain Diagnosis: Principal (2) Diarrhea in adult patient Diagnosis: Principal (3) Gastroenteritis Diagnosis: Principal Chief Complaint: Nausea, vomiting, diarrhea. Travel History International Travel<30 Days: No Contact w/Intl Traveler <30 Da: No Traveled to Known Affected Are: No History of Present Illness This is a 52-year-old female with known history hypertension, alcohol dependency, tobacco abuse who presented to the hospital because of nausea, vomiting, diarrhea, abdominal pain. Patient states that all her symptoms started yesterday which she had started with a migraine then progressed to nausea and vomiting then she states that she went to stomach formation and subsequently finished with diarrhea. She states that she could not eat or drink anything all day yesterday and because she did not feel any better she came to emergency department today. Patient does have a rather complex medical history that in July she came in for the same symptoms had severe alcohol withdrawal. She had extensive abdominal workup with CT scans endoscopies, colonoscopies, GI consult, surgical consult. Biopsies did not indicate any type of inflammatory bowel. Ruled out any Crohn's disease or ulcerative colitis. Patient states that she did not follow-up with the dredgemaster upon discharge last visit. I notified her of some of the results such as the hepatitis C that was done in July she states that no one ever told her that she had hepatitis C. Apparently the patient had been doing well since she has not made it back to the hospital. She has been taking care of a friend and with that person is been sick with Clostridium difficile. And now the patient states that she is experiencing diarrhea herself. Upon review of 2 different ER physician documentation today. There is mixed symptoms and when asked patient about her symptoms she comes up with a plethora of other symptoms that she states that she told the other physicians but it was not documented. Patient indicates that she has been vomiting blood since yesterday. However her hemoglobin is rather concentrated at 16.9. Patient states that she does get intermittent dark color stools. Patient was requested admission by ER physician. Since patient has been to the room she is called the nurse approximately 6 times every 15 minutes requesting Dilaudid for pain medication. Patient states that she was given morphine in the emergency department but it does not work as well as the Dilaudid. It is documented by nursing staff that the patient states that she needs Dilaudid because she has a broken back. When confronting the patient concerning this she states that she had never told anyone that she had a broken back. She indicates that her back is hurting from all the nausea and vomiting that she's been doing that she probably pulled her muscles in her back and it feels like it is broke. Unfortunately the patient appears to have seeking behavior. Presently she does have some mild signs of detoxing. Patient only admitted with [facility] protocol. We'll continue to protect her against her withdrawals. Continue monitor hemoglobin to evaluate for any acute GI bleed. Continue anti-emetics and advance diet as tolerated. Review of Systems Gastrointestinal: COMPLAINS OF: Abdominal pain, Diarrhea, Nausea, Vomiting Neurologic: COMPLAINS OF: Headache Except as stated in HPI: all other systems reviewed are Neg Past Family Social History Past Medical History Hypertension Alcohol abuse Tobacco abuse Hepatitis C Alcoholic gastritis Esophagitis Coronary artery disease Past Surgical History EGD/colonoscopy Cholecystectomy Cardiac catheterization with stenting Reported Medications Reported Meds & Active Scripts Active Lisinopril 20 Mg Tab 20 Mg PO BID Catapres (Clonidine) 0.1 Mg Tab 0.1 Mg PO Q6H PRN Promethazine (Promethazine HCl) 12.5 Mg Tab 12.5 Mg PO Q6H PRN Omeprazole 20 Mg Tab 20 Mg PO DAILY Klor-Con 10 (Potassium Chloride) 10 Meq Tab 10 Meq PO DAILY Zofran Odt (Ondansetron Odt) 4 Mg Tab 4 Mg SL Q6HR PRN Allergies: Coded Allergies: No Known Allergies (Unverified Allergy, Unknown, 08/03/17) Family History Reviewed and significant for family history of aneurysms, myocardial infarction , alcohol abuse Social History Patient drinks 4-5 cups of vodka daily, last drink was 10 AM yesterday, patient smokes a half a pack a cigarettes a day since he was 14 years old. Denies any illicit drug use Physical Exam Vital Signs Vital Signs Date Time Temp Pulse Resp B/P (MAP) Pulse Ox O2 Delivery O2 Flow Rate FiO2 12/02/17 12:00 99.4 113 18 125/75 (92) 95 12/02/17 11:30 12/02/17 10:38 118 16 167/89 (115) 95 Room Air 12/02/17 10:14 17 12/02/17 09:50 120 19 165/98 (120) 98 Room Air 12/02/17 09:30 120 18 172/81 (111) 99 Room Air 12/02/17 08:58 108 18 192/103 (132) 98 Room Air 12/02/17 08:53 110 12/02/17 08:33 17 12/02/17 08:21 105 18 175/101 (125) 97 Room Air 12/02/17 08:05 96 19 185/105 (131) 97 Room Air 12/02/17 07:46 77 20 216/114 (148) 97 Room Air 12/02/17 07:20 98.7 78 18 205/110 (141) 97 Room Air 12/02/17 07:11 18 12/02/17 06:26 99 Room Air 12/02/17 06:03 98.4 85 18 195/104 (134) 97 Physical Exam GENERAL: Well-developed, well-nourished, in no acute distress. alert and orientated HEENT: Head is normocephalic without any lesions or masses noted. Facial features are symmetric. Eyes: Pupils equal round reactive to light. Extraocular muscles are intact. Conjunctivae were clear. Oropharyngeal: Pharynx without any erythema edema. Tongue is midline without deviation. Buccal mucosa is moist without any masses or lesions NECK: Supple without any masses. Trachea midline no deviation. No JVD, no bruits are appreciated CARDIAC: Regular rhythm, regular rate. S1/S2 are heard. No murmurs gallops or rubs. LUNGS: Clear to auscultation bilaterally. No wheeze, rhonchi or rales. No use of accessory muscles on inspiration or expiration. ABDOMEN: Soft, no significant point tenderness. Patient does appear to have some mild malingering. Nondistended. Bowel sounds heard in all 4 quadrants. No organomegaly or masses. Negative rebound, negative guarding EXTREMITIES: No edema, pulses are equal bilaterally. No cyanosis or clubbing NEUROLOGY: Mood and affect appear appropriate. Cranial nerves II through XII grossly intact. Muscle strength 5/5 in upper and lower extremities bilaterally. Deep tendon reflexes are 2+ in upper and lower extremities bilaterally. Laboratory Laboratory Tests Test 12/02/17 06:18 White Blood Count 7.3 Red Blood Count 4.82 Hemoglobin 16.9 Hematocrit 50.6 Mean Corpuscular Volume 104.8 Mean Corpuscular Hemoglobin 35.0 Mean Corpuscular Hemoglobin Concent 33.4 Red Cell Distribution Width 14.3 Platelet Count 238 Mean Platelet Volume 8.1 Neutrophils (%) (Auto) 86.7 Lymphocytes (%) (Auto) 7.1 Monocytes (%) (Auto) 4.5 Eosinophils (%) (Auto) 0.1 Basophils (%) (Auto) 1.6 Neutrophils # (Auto) 6.4 Lymphocytes # (Auto) 0.5 Monocytes # (Auto) 0.3 Eosinophils # (Auto) 0.0 Basophils # (Auto) 0.1 CBC Comment DIFF FINAL Differential Comment Urine Collection Type CLEAN CATCH Urine Color ORANGE Urine Turbidity SLIGHT Urine pH 7.0 Urine Specific [place] 1.024 Urine Protein 100 Urine Glucose (UA) NEG Urine Ketones 40 Urine Occult Blood NEG Urine Nitrite NEG Urine Bilirubin MOD Urine Leukocyte Esterase NEG Urine RBC 0-3 Urine WBC 0-2 Urine Squamous Epithelial Cells 6-8 Urine Amorphous Sediment MOD Urine Bacteria OCC Urine Hyaline Casts 0-2 Microscopic Urinalysis Comment CULT NOT INDICATED Urine Collection Time 0618 Blood Urea Nitrogen 12 Creatinine 0.79 Random Glucose 144 Total Protein 9.4 Albumin 4.5 Calcium Level 9.7 Alkaline Phosphatase 235 Aspartate Amino Transf (AST/SGOT) 77 Alanine Aminotransferase (ALT/SGPT) 33 Total Bilirubin 1.7 Sodium Level 132 Potassium Level 3.6 Chloride Level 91 Carbon Dioxide Level 29.9 Anion Gap 11 Estimat Glomerular Filtration Rate 76 Lipase 260 Result Diagram: 12/02/17 0618 12/02/17 0618 Imaging Last Impressions Abdomen/Pelvis CT 12/02/17 0654 Signed Impressions: Service Date/Time: Saturday, December 02, 2017 08:27 - CONCLUSION: Mild prominence of common duct common nonspecific post cholecystectomy Marked fatty replacement of the liver No other etiology for the patient's abdominal pain. Perico Mckeon MD FACR Caprini VTE Risk Assessment Caprini VTE Risk Assessment: Mod/High Risk (score >= 2) Caprini Risk Assessment Model Point Value = 1 Point Value = 2 Point Value = 3 Point Value = 5 Age 41-60 Minor surgery BMI > 25 kg/m2 Swollen legs Varicose veins or History of unexplained or recurrent spontaneous Oral contraceptives or hormone replacement Sepsis (< 1 month) Serious lung disease, including pneumonia (< 1 month) Abnormal pulmonary function Acute myocardial infarction Congestive heart failure (< 1 month) History of inflammatory bowel disease Medical patient at bed rest Age 61-74 Arthroscopic surgery Major open surgery (> 45 min) Laparoscopic surgery (> 45 min) Malignancy Confined to bed (> 72 hours) Immobilizing plaster cast Central venous access Age >= 75 History of VTE Family history of VTE Factor V Leiden Prothrombin [id number] Lupus anticoagulant Anticardiolipin antibodies Elevated serum homocysteine Heparin-induced thrombocytopenia Other congenital or acquired thrombophilia Stroke (< 1 month) Elective arthroplasty Hip, pelvis, or leg fracture Acute spinal cord injury (< 1 month) Prophylaxis Regimen Total Risk Factor Score Risk Level Prophylaxis Regimen 0-1 Low Early ambulation 2 Moderate Order ONE of the following: *Sequential Compression Device (SCD) *Heparin 5000 units SQ BID 3-4 Higher Order ONE of the following medications: *Heparin 5000 units SQ TID *Enoxaparin/Lovenox 40 mg SQ daily (WT < 150 kg, CrCl > 30 mL/min) *Enoxaparin/Lovenox 30 mg SQ daily (WT < 150 kg, CrCl > 10-29 mL/min) *Enoxaparin/Lovenox 30 mg SQ BID (WT < 150 kg, CrCl > 30 mL/min) AND/OR *Sequential Compression Device (SCD) 5 or more Highest Order ONE of the following medications: *Heparin 5000 units SQ TID (Preferred with Epidurals) *Enoxaparin/Lovenox 40 mg SQ daily (WT < 150 kg, CrCl > 30 mL/min) *Enoxaparin/Lovenox 30 mg SQ daily (WT < 150 kg, CrCl > 10-29 mL/min) *Enoxaparin/Lovenox 30 mg SQ BID (WT < 150 kg, CrCl > 30 mL/min) AND *Sequential Compression Device (SCD) Assessment and Plan Assessment and Plan Gastroenteritis with nausea, vomiting, subjective hematemesis, abdominal pain triggered by migraine cephalgia Monitor hemoglobin and hematocrit Continue IV fluids Continue Zofran, start Phenergan if they'll Zofran Patient has had exposure to someone with diarrhea illness possible C. difficile Obtain stool studies: C. difficile, stool WBC, enteric pathogens, rotavirus Clear liquid diet, advance as tolerated Oxycodone 5 every 6 hours for pain 1-5, oxycodone 10 mg every 6 hours for pain 6-10 Accelerated hypertension Home medications continued Vasotec, clonidine as needed Chronic alcohol abuse CIWA protocol Start Librium 25 mg 3 times daily Start thiamine, folic acid Transferred to ICU if CIWA greater than 18 DVT prevention sequential compression devices Physician Certification 2 Midnight Certification Type: Admission for Inpatient Services Order for Inpatient Services The services are ordered in accordance with Medicare regulations or non- Medicare payer requirements, as applicable. In the case of services not specified as inpatient-only, they are appropriately provided as inpatient services in accordance with the 2-midnight benchmark. Estimated LOS (days): 2 days is the estimated time the patient will need to remain in the hospital, assuming treatment plan goals are met and no additional complications. Post-Hospital Plan: Not yet determined Efrain Cooley Dec 02, 2017 18:09
[2017-12-02] MEDS: chlordiazePOXIDE 25 MG CAP PO SCH (18:12)
[2017-12-02 18:14] LABS: HEMATOCRIT 47.6 % (35.0-46.0); HEMOGLOBIN 15.8 GM/DL (11.6-15.3)
[2017-12-02] MEDS: ONDANSETRON HCL 4 MG/2 ML VIAL IVP PRN (18:14)
[2017-12-02] MEDS ORDERED: PROMETHAZINE INJ 25 MG/ML VIAL IM PRN (18:15)
[2017-12-02] MEDS: SODIUM CHLORIDE 0.9% FLUSH 10 ML FLUSH IV FLUSH SCH (20:16)
[2017-12-02] MEDS: LISINOPRIL 20 MG TAB PO SCH (20:39)
[2017-12-02] MEDS: DOCUSATE SODIUM 50 MG/SENNA 8.6 MG TAB PO SCH (20:39)
[2017-12-02] MEDS: cloNIDine HCL 0.1 MG TAB PO PRN (20:43)
[2017-12-02] MEDS ORDERED: SODIUM CHLORIDE 0.9% FLUSH 10 ML FLUSH IV FLUSH SCH (21:00)
[2017-12-03] MEDS: ONDANSETRON HCL 4 MG/2 ML VIAL IVP PRN ×2 (01:11→08:34)
[2017-12-03] MEDS: cloNIDine HCL 0.1 MG TAB PO PRN (02:24)
[2017-12-03 04:00] VITALS: BP 132/90; PULSE 76; RESP 16; TEMP 98.7; O2SAT 99
[2017-12-03] MEDS: SODIUM CHLOR 0.9% 1000 ML INJ 1,000 ML IV SCH (04:18)
[2017-12-03 06:47] LABS: AUTOMATED NEUTROPHIL # 5.8 TH/MM3 (1.8-7.7); BASOPHIL # 0.2 TH/MM3 (0-0.2); BASOPHIL % 2.6 % (0.0-2.0); EOSINOPHIL % 0.1 % (0.0-4.0); HEMATOCRIT 45.9 % (35.0-46.0); HEMOGLOBIN 15.2 GM/DL (11.6-15.3); LYMPH % 14.3 % (9.0-44.0); LYMPHOCYTE # 1.1 TH/MM3 (1.0-4.8); MEAN CELL VOLUME 106.2 FL (80.0-100.0); MEAN CORPUSCULAR HEMOGLOBIN 35.2 PG (27.0-34.0); MEAN CORPUSCULAR HGB CONC 33.1 % (32.0-36.0); MEAN PLATELET VOLUME 8.2 FL (7.0-11.0); MONO % 6.2 % (0.0-8.0); MONOCYTE # 0.5 TH/MM3 (0-0.9); NEUT % 76.8 % (16.0-70.0); PLATELET COUNT 194 TH/MM3 (150-450); RED BLOOD COUNT 4.32 MIL/MM3 (4.00-5.30); RED CELL DISTRIBUTION WIDTH 14.5 % (11.6-17.2); WHITE BLOOD COUNT 7.6 TH/MM3 (4.0-11.0)
[2017-12-03 06:52] LABS: CHLORIDE 98 MEQ/L (98-107); SODIUM (NA) 133 MEQ/L (136-145)
[2017-12-03 07:03] LABS: ALBUMIN 3.6 GM/DL (3.4-5.0); ALKALINE PHOSPHATASE 169 U/L (45-117); ALT (GPT) 24 U/L (10-53); AST (GOT) 55 U/L (15-37); BLOOD UREA NITROGEN 10 MG/DL (7-18); CALCIUM 8.8 MG/DL (8.5-10.1); CREATININE 0.51 MG/DL (0.50-1.00); GLOMERULAR FILTRATION RATE 126 ML/MIN (>89); GLUCOSE,RANDOM 94 MG/DL (74-106); TOTAL BILIRUBIN ADULT 1.5 MG/DL (0.2-1.0); TOTAL PROTEIN 7.3 GM/DL (6.4-8.2)
[2017-12-03 08:00] VITALS: BP 154/105; PULSE 78; RESP 18; TEMP 98.5; O2SAT 96
[2017-12-03] MEDS ORDERED: NS + KCL 20 MEQ INJ 1,000 ML IV SCH (08:00)
[2017-12-03] MEDS ORDERED: POTASSIUM CHLORIDE 20 MEQ CONTROLLED RELEASE TAB PO ONE (08:00)
[2017-12-03] MEDS ORDERED: POTASSIUM CHLORIDE 10 MEQ CONTROLLED RELEASE TAB PO SCH (09:00)
[2017-12-03] MEDS ORDERED: PANTOPRAZOLE SOD 20 MG DELAYED RELEASE TAB PO SCH (09:00)
[2017-12-03] MEDS ORDERED: FOLIC ACID 1 MG TAB PO SCH (09:00)
[2017-12-03] MEDS: DOCUSATE SODIUM 50 MG/SENNA 8.6 MG TAB PO SCH (09:00)
[2017-12-03] MEDS ORDERED: THIAMINE HCL 100 MG TAB PO SCH (09:00)
[2017-12-03] MEDS: SODIUM CHLORIDE 0.9% FLUSH 10 ML FLUSH IV FLUSH SCH (09:00)
[2017-12-03] MEDS: chlordiazePOXIDE 25 MG CAP PO SCH ×2 (09:01→12:01)
[2017-12-03] MEDS: LISINOPRIL 20 MG TAB PO SCH (09:01)
--- NOTE | 2017-12-03 11:08 | EKG ---
Date Performed: 12/02/2017 Time Performed: 10:02:53 PTAGE: 52 years EKG: SINUS TACHYCARDIA POSSIBLE LEFT ATRIAL ENLARGEMENT SEPTAL MYOCARDIAL INFARCTION MODERATE T- WAVE ABNORMALITY, CONSIDER INFERIOR ISCHEMIA ABNORMAL ECG Since the prior tracing, there has been no significant change PREVIOUS TRACING : 07/28/2017 04.47 DOCTOR: Aldair Joshi Interpretating Date/Time 12/03/2017 11:06:36
[2017-12-03] MEDS ORDERED: CHLO10CA5 PO (11:14)
[2017-12-03] MEDS ORDERED: PROM12.54 PO (11:14)
[2017-12-03] MEDS ORDERED: OXYC-392 PO (11:14)
--- NOTE | 2017-12-03 11:15 | HHI.DCPOC ---
Discharge Care Plan Diagnosis: (1) Abdominal pain (2) Gastroenteritis (3) Alcohol abuse Goals to Promote Your Health * To prevent worsening of your condition and complications * To maintain your health at the optimal level Directions to Meet Your Goals Take your medications as prescribed Follow your dietary instruction Follow activity as directed Keep your appointments as scheduled Take your immunizations and boosters as scheduled If your symptoms worsen call your PCP, if no PCP go to Urgent Care Center or Emergency Room Smoking is Dangerous to Your Health. Avoid second hand smoke Call the 24-hour hour crisis hotline for domestic abuse at Efrain Cooley Dec 03, 2017 11:15
--- NOTE | 2017-12-03 11:20 | HHI.DS ---
Discharge Summary Admission Date Dec 02, 2017 at 11:06 Discharge Date: Dec 03, 2017 Admitting Diagnosis Gastritis, Intractable Abdominal Pain, Accelerated Hypertension (1) Abdominal pain ICD Code: R10.9 - Unspecified abdominal pain Diagnosis: Principal (2) Diarrhea in adult patient ICD Code: R19.7 - Diarrhea, unspecified Diagnosis: Principal (3) Gastroenteritis ICD Code: K52.9 - Noninfective gastroenteritis and colitis, unspecified Diagnosis: Principal Procedures None Brief History - From Admission This is a 52-year-old female with known history hypertension, alcohol dependency, tobacco abuse who presented to the hospital because of nausea, vomiting, diarrhea, abdominal pain. Patient states that all her symptoms started yesterday which she had started with a migraine then progressed to nausea and vomiting then she states that she went to stomach formation and subsequently finished with diarrhea. She states that she could not eat or drink anything all day yesterday and because she did not feel any better she came to emergency department today. Patient does have a rather complex medical history that in July she came in for the same symptoms had severe alcohol withdrawal. She had extensive abdominal workup with CT scans endoscopies, colonoscopies, GI consult, surgical consult. Biopsies did not indicate any type of inflammatory bowel. Ruled out any Crohn's disease or ulcerative colitis. Patient states that she did not follow-up with the tube operator upon discharge last visit. I notified her of some of the results such as the hepatitis C that was done in July she states that no one ever told her that she had hepatitis C. Apparently the patient had been doing well since she has not made it back to the hospital. She has been taking care of a friend and with that person is been sick with Clostridium difficile. And now the patient states that she is experiencing diarrhea herself. Upon review of 2 different ER physician documentation today. There is mixed symptoms and when asked patient about her symptoms she comes up with a plethora of other symptoms that she states that she told the other physicians but it was not documented. Patient indicates that she has been vomiting blood since yesterday. However her hemoglobin is rather concentrated at 16.9. Patient states that she does get intermittent dark color stools. Patient was requested admission by ER physician. Since patient has been to the room she is called the nurse approximately 6 times every 15 minutes requesting Dilaudid for pain medication. Patient states that she was given morphine in the emergency department but it does not work as well as the Dilaudid. It is documented by nursing staff that the patient states that she needs Dilaudid because she has a broken back. When confronting the patient concerning this she states that she had never told anyone that she had a broken back. She indicates that her back is hurting from all the nausea and vomiting that she's been doing that she probably pulled her muscles in her back and it feels like it is broke. Unfortunately the patient appears to have seeking behavior. Presently she does have some mild signs of detoxing. Patient only admitted with [facility] protocol. We'll continue to protect her against her withdrawals. Continue monitor hemoglobin to evaluate for any acute GI bleed. Continue anti-emetics and advance diet as tolerated. CBC/BMP: 12/03/17 0615 12/03/17 0615 Significant Findings Laboratory Tests Test 12/02/17 06:18 12/02/17 18:10 12/03/17 06:15 Hemoglobin 16.9 GM/DL (11.6-15.3) 15.8 GM/DL (11.6-15.3) Hematocrit 50.6 % (35.0-46.0) 47.6 % (35.0-46.0) Mean Corpuscular Volume 104.8 FL (80.0-100.0) 106.2 FL (80.0-100.0) Mean Corpuscular Hemoglobin 35.0 PG (27.0-34.0) 35.2 PG (27.0-34.0) Neutrophils (%) (Auto) 86.7 % (16.0-70.0) 76.8 % (16.0-70.0) Lymphocytes (%) (Auto) 7.1 % (9.0-44.0) Lymphocytes # (Auto) 0.5 TH/MM3 (1.0-4.8) Urine Color ORANGE (YELLW/STRAW) Urine Protein 100 mg/dL (NEG-TRACE) Urine Ketones 40 mg/dL (NEG) Urine Bilirubin MOD (NEG) Urine Squamous Epithelial Cells 6-8 /hpf (0-5) Urine Bacteria OCC /hpf (NONE) Random Glucose 144 MG/DL (74-106) Total Protein 9.4 GM/DL (6.4-8.2) Alkaline Phosphatase 235 U/L (45-117) 169 U/L (45-117) Aspartate Amino Transf (AST/SGOT) 77 U/L (15-37) 55 U/L (15-37) Total Bilirubin 1.7 MG/DL (0.2-1.0) 1.5 MG/DL (0.2-1.0) Sodium Level 132 MEQ/L (136-145) 133 MEQ/L (136-145) Chloride Level 91 MEQ/L (98-107) Estimat Glomerular Filtration Rate 76 ML/MIN (>89) Basophils (%) (Auto) 2.6 % (0.0-2.0) Potassium Level 3.2 MEQ/L (3.5-5.1) Imaging Last Impressions Abdomen/Pelvis CT 12/02/17 0654 Signed Impressions: Service Date/Time: Saturday, December 02, 2017 08:27 - CONCLUSION: Mild prominence of common duct common nonspecific post cholecystectomy Marked fatty replacement of the liver No other etiology for the patient's abdominal pain. Perico Mckeon MD FA[facility] Hospital Course 52-year-old female who came to the hospital for evaluation of abdominal pain, nausea, vomiting, diarrhea. Patient was in severe pain and required IV pain medication emergency department. However upon review of medical records it appears the patient has had rather extensive workup in the past with endoscopies, radiological studies with significant findings of esophagitis, alcohol gastritis. Patient was specifically requesting to have Dilaudid upon arrival to the floor. Patient was started on appropriate treatment for gastroenteritis, alcohol withdrawal with IV fluids, Librium,, CIWA protocol. Patient was started on a diet and tolerated it well. Upon evaluating the patient today she states that she still having some abdominal discomfort, patient indicates that the pain medication does help for her pain. The patient has not had any recurrent nausea or vomiting since being in the hospital. Patient CIWA score is 1. Patient has not required any IV Ativan. Patient clinically stable at this time. She is no longer have any nausea, vomiting. She has not experienced any diarrhea or had any bowel movement since being in the hospital. She is asking for pain medication upon discharge. Will plan discharge accordingly. Pt Condition on Discharge: Stable Discharge Disposition: Discharge Home Discharge Time: > 30 minutes Discharge Instructions DIET: Follow Instructions for: As Tolerated, No Restrictions Activities you can perform: Regular-No Restrictions Follow up Referrals: PCP Follow-up - 1 Week New Medications: Chlordiazepoxide HCl (Chlordiazepoxide HCl) 10 Mg Capsule 10 MG PO DIRECTED for Alcohol Detox, #20 CAP Librium 20 mg 3 times daily for 2 days, then Librium 10 mg 3 times daily for 2 days, then Librium 10 mg daily for 2 days Oxycodone (Oxycodone) 5 Mg Tab 5 MG PO Q6H PRN for Pain, #10 TAB Continued Medications: Clonidine (Catapres) 0.1 Mg Tab 0.1 MG PO Q6H PRN for SYS BP GREATER THAN 160 MMHG, #30 TAB Lisinopril (Lisinopril) 20 Mg Tab 20 MG PO BID for Blood Pressure Management, #60 TAB 0 Refills Omeprazole (Omeprazole) 20 Mg Tab 20 MG PO DAILY for acid reflux, #30 TAB 0 Refills Potassium Chloride ER (Klor-Con 10) 10 Meq Tab 10 MEQ PO DAILY for Electrolyte Replacement, #30 TAB 0 Refills Promethazine (Promethazine) 12.5 Mg Tab 12.5 MG PO Q6H PRN for NAUSEA OR VOMITING, #30 TAB 0 Refills (This prescription has been renewed) Discontinued Medications: Ondansetron Odt (Zofran Odt) 4 Mg Tab 4 MG SL Q6HR PRN for Nausea/Vomiting, #10 TAB 0 Refills Efrain Cooley Dec 03, 2017 11:19
== END 2017-12-03 12:30 | disposition home or self-care (01) | DRG 392 ==
LOC: PHED 05:59 → OBSVTOIN 11:06 → PHEDA 11:06 → PH3A 12:21
PROVIDERS: ADMIT Hospitalist; ATTEND Hospitalist
DX: K52.9 Noninfective gastroenteritis and colitis, unspecified (principal); I10 Essential (primary) hypertension; F10.239 Alcohol dependence with withdrawal, unspecified; J45.909 Unspecified asthma, uncomplicated; I25.2 Old myocardial infarction; B19.20 Unspecified viral hepatitis C without hepatic coma; I25.10 Atherosclerotic heart disease of native coronary artery without angina pectoris; F17.210 Nicotine dependence, cigarettes, uncomplicated; F32.9 Major depressive disorder, single episode, unspecified; F41.9 Anxiety disorder, unspecified; Z95.5 Presence of coronary angioplasty implant and graft
CPT/HCPCS: 74177; 80053; 81001; 82948; 83690; 85014; 85018; 85025; 93005; C9113; J0360; J2060; J2270; J2405; J2550; J3411; J3480; J7030; Q9963; Q9967